=== PATIENT | female | born 1970 | race Caucasian/White ===

== ENCOUNTER 2017-04-09 15:21 | Inpatient (IN) | payer OTHER ==
[~2017-04-09] VITALS: Ht 177.8 cm; Wt 99.4 kg
[~2017-04-09 15:21] MED LIST: ACYC400T21 PO; ALPR1T PO; ALPR1TAB2 PO; AMIT50TA3 PO; AMT50T PO; CIPR-225 PO; CTLP20T PO; DIVA250T2 PO; Divalproex Sodium PO; HDR4T PO; HYDR-2890 PO; METO25TA6 PO; NYST1000 PO; OXYC-309 PO; PROP10TA8 PO; SMTR6KT.5 SQ; SUMA25TA4 PO; TOPI50TA2 PO; TPR100T PO; ZOLP10TA5 PO
--- OUTSIDE RECORDS SUMMARY | 2017-04-09 15:27 | XMS REPORT | Continuity of Care Document ---
Author Author [facility] Organization [facility] Address Unknown Phone Unavailable Care Team Providers Care [employer] Pilot Name Role Phone PCP Unavailable Source Comments Some departments are not documenting in the electronic medical record. If you do not see the information that you expected, contact Release of Information in the Health Information Management department at [phone] for further assistance in locating additional records.[facility] Active Allergies and Adverse Reactions Not on File Current Medications Not on file Active Problems Not on file Social History Tobacco Use Types Packs/Day Years Used Date Never Assessed Plan of Care Health Maintenance Due Date Last Done Comments Physical (Comprehensive) 1978 Exam Pertussis Vaccine 1982 Tetanus Vaccine 02/04/1988 Cervical Cancer Screening 02/04/1992 Breast Cancer Screening 2011 Influenza Vaccine 05/29/2017 Results from Last 3 Months Not on file
--- OUTSIDE RECORDS SUMMARY | 2017-04-09 15:28 | XMS REPORT | Continuity of Care Document ---
Author Author [facility] Organization [facility] Address Unknown Phone Unavailable Allergies Active Description Code Type Severity Reaction Onset Reported/Identified Relationship to Patient Clinical Status Yes NKANo Known Allergies NKA Miscellaneous Allergy Unknown N/ A 02/17/2006 Medications Problems Date Dx Coded Attending Type Code Diagnosis Diagnosed By 05/10/2014 VEENA MARES DO Ot 272.4 HYPERLIPIDEMIA NEC/NOS 05/10/2014 VEENA MARES DO Ot 300.00 ANXIETY STATE NOS 05/10/2014 VEENA MARES DO Ot 305.1 TOBACCO USE DISORDER 05/10/2014 VEENA MARES DO Ot 311 DEPRESSIVE DISORDER NEC 05/10/2014 VEENA MARES DO Ot 346.91 MGRN UNSPECIFIED W INTRACTABLE MGRN W /O 05/10/2014 VEENA MARES DO Ot 401.9 HYPERTENSION NOS 05/10/2014 VEENA MARES DO Ot 786.59 CHEST PAIN NEC 05/10/2014 VEENA MARES DO Ot V17.49 FAMILY HISTORY OF OTHER CARDIOVASCULAR D 01/31/2015 YVROSE ESCOBEDO, ALFREDO R Ot 112.0 THRUSH 01/31/2015 YVROSE ESCOBEDO, ALFREDO R Ot 311 DEPRESSIVE DISORDER NEC 01/31/2015 YVROSE ESCOBEDO, ALFREDO R Ot 346.91 MGRN UNSPECIFIED W INTRACTABLE MGRN W/O 01/31/2015 YVROSE ESCOBEDO, ALFREDO R Ot 372.30 CONJUNCTIVITIS NOS 03/26/2015 YVROSE ESCOBEDO, ALFREDO R Ot 784.2 04/09/2015 YVROSE ESCOBEDO, ALFRDEO R Ot 719.46 04/12/2015 YVROSE ESCOBEDO, ALFREDO R Ot 719.46 04/13/2015 YVROSE ESCOBEDO, ALFREDO R Ot 784.2 04/13/2015 YVROSE ESCOBEDO, ALFREDO R Ot 719.46 04/18/2015 MADONNA ESCOBEDO, BLANQUITA Lai Ot 300.00 ANXIETY STATE NOS 04/18/2015 BLANQUITA PEACOCK MD Ot 311 DEPRESSIVE DISORDER NEC 04/18/2015 BLANQUITA PEACOCK MD Ot 401.9 HYPERTENSION NOS 04/18/2015 BLANQUITA PEACOCK MD Ot 530.81 ESOPHAGEAL REFLUX 04/18/2015 BLANQUITA PEACOCK MD Ot 717.2 DERANG POST MED MENISCUS 04/18/2015 BLANQUITA PEACOCK MD Ot 733.92 CHONDROMALACIA 04/18/2015 BLANQUITA PEACOCK MD Ot V57.1 PHYSICAL THERAPY NEC 04/18/2015 BLANQUITA PEACOCK MD Ot V58.69 OTH MED,LT,CURRENT USE 03/01/2016 YVROSE ESCOBEDO, ALFREDO R Ot 784.2 SWELLING IN HEAD NECK 03/01/2016 ALFREDO FRANCES MD Ot 719.46 JOINT PAIN-L/LEG 03/01/2016 BLANQUITA PEACOCK MD Ot 717.3 DERANG MED MENISCUS NEC 03/01/2016 BLANQUITA PEACOCK MD Ot V72.83 EXAM PRE-OPERATIVE NEC 03/01/2016 BLANQUITA PEACOCK MD Ot V74.8 SCREEN-BACTERIAL DIS NEC 03/03/2016 DAREK ESCOBEDO, CELIA Herrera Ot F12.10 CANNABIS ABUSE, UNCOMPLICATED 03/03/2016 DAREK ESCOBEDO, CELIA Herrera Ot F13.239 SEDATV/HYP/ANXIOLYTC DEPENDENCE W WITHDR 03/03/2016 CELIA OSWALD MD Ot F17.210 NICOTINE DEPENDENCE, CIGARETTES, UNCOMPL 03/03/2016 CEILA OSWALD MD Ot N39.0 URINARY TRACT INFECTION, SITE NOT SPECIF Procedures Results Encounters ACCT No. Visit Date/Time Discharge Status Pt. Type Provider Facility Loc./Unit Complaint [id number] 03/01/2016 21:32:00 2015 23:05:00 DIS Outpatient CELIA OSWALD MD [facility] ER [id number] 04/18/2015 06:00:00 2014 10:35:00 DIS Outpatient BLANQUITA PEACOCK MD [facility] SDC [id number] 04/17/2015 10:43:00 2014 23:59:59 CLS Outpatient BLANQUITA PEACOCK MD [facility] PREOP [id number] 04/06/2015 11:13:00 2014 23:59:59 CLS Outpatient ALFREDO FRANCES MD [facility] [id number] 03/14/2015 12:35:00 2014 23:59:59 CLS Outpatient ALFREDO FRANCES MD [facility] [id number] 01/24/2015 11:40:00 2014 13:22:00 DIS Inpatient ALFREDO FRANCES MD [facility] [address] [id number] 05/05/2014 19:45:00 2013 13:49:00 DIS Inpatient VEENA MARES DO [facility] [address]
--- NOTE | 2017-04-09 15:41 | ED Chest Pain ---
General Chief Complaint: Chest Pain Stated Complaint: CHEST PAIN,SOB Source: patient Exam Limitations: no limitations History of Present Illness Time seen by provider: 15:40 Initial Comments To ER with chest heaviness, shortness of breath and palpitations constant since 11 a.m. this morning. This occurred while she was at rest at her mother's house. She has a history of this and has seen cardiology with an echocardiogram in the past. She's never had a heart catheter. She does feel little anxious but states that she always feels anxious and she's had a lot going on lately. She states that her mother checked her heart rate at home and found it to be 180. She then sat down and then reduced to 120. Upon arrival to ER it is 100, sinus with a blood pressure of 140/100. She is on metoprolol 25 mg daily. She's had these symptoms intermittently over the past few weeks. Timing/Duration: intermittent Severity/Quality: moderate Activities at Onset: none ASA po BRICK LOADER: No NTG SL BRICK LOADER: No Allergies and Home Medications Allergies Coded Allergies: Alan Known Allergies (Verified Allergy, Unknown, 02/17/06) Home Medications Alprazolam 1 Mg Tablet, 0.5-1 MG PO BID PRN for ANXIETY, (Reported) TAKES 1/2 - 1 (1MG) TABLET Amitriptyline HCl 50 Mg Tablet, 50 MG PO DAILY, (Reported) Hydrocodone/Acetaminophen 1 Each Tablet, 1 EACH PO, (Reported) Melatonin 10 Mg Capsule, 10 MG PO PRN, (Reported) Metoprolol Tartrate 25 Mg Tablet, 25 MG PO DAILY, (Reported) Pantoprazole Sodium 40 Mg Tablet.dr, 40 MG PO DAILY, (Reported) Ropinirole HCl 2 Mg Tablet, 2 MG PO, (Reported) Sumatriptan Succinate 25 Mg Tablet, 25 MG PO PRN PRN for ONSET OF HEADACHE, ( Reported) MAY REPEAT 1 TIME 2 HOURS LATER Review of Systems Constitutional: see HPI EENTM: No Symptoms Reported Respiratory: No Symptoms Reported Cardiovascular: No Symptoms Reported Gastrointestinal: See HPI Genitourinary: No Symptoms Reported Musculoskeletal: no symptoms reported Skin: no symptoms reported Endocrine: No Symptoms Reported Hematologic/Lymphatic: No Symptoms Reported Past Ridqayu-Bxzhyy-Frsgyh Hx Patient Social History Recent Foreign Travel: No Contact w/Someone Who Travel: No Surgeries HX Surgeries: Yes (ceserean section x 2, LEFT KNEE SCOPE) Respiratory Hx Respiratory Disorders: No Cardiovascular Hx Cardiac Disorders: Yes Cardiac Disorders: Hypertension Neurological Hx Neurological Disorders: Yes Reproductive System Hx Reproductive Disorders: No Sexually Transmitted Disease: No HIV/AIDS: No 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 Disorders: Denies 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 Genitourinary Hx Genitourinary Disorders: No Gastrointestinal Hx Gastrointestinal Disorders: Yes (SURGERY FOR GERD) Gastrointestinal Disorders: Gastroesophageal Reflux Musculoskeletal Hx Musculoskeletal Disorders: Yes Endocrine Hx Endocrine Disorders: No HEENT HX ENT Disorders: No Loss of Vision: Denies Hearing Impairment: Denies Cancer Hx Cancer: No Psychosocial Hx Psychiatric Problems: Yes Behavioral Health Disorders: Anxiety, Depression Integumentary HX Skin/Integumentary Disorder: No Blood Transfusions Hx Blood Disorders: No Family Medical History Family Medial History: Atrial fibrillation 19 MOTHER, Onset:Unknown Cancer of mouth 19 FATHER, Onset:Unknown Headache disorder 19 MOTHER, Onset:Unknown No Family History of: AIDS Abdominal aortic aneurysm Cypress's disease Alcoholism Alzheimer's disease Aphasia Arthritis Asthma Cardiovascular disease Cataracts Colon cancer Completed stroke Congenital disease Congenital heart disease Coronary thrombosis Cystic fibrosis Deafness or hearing loss Dementia Diabetes mellitus Drug abuse Dysphasia Fibrocystic disease of breast Gastroenteritis Glaucoma Hypercholesterolemia Hypertension Infertility Kidney disease Myocardial infarction Neoplasm Not obtainable due to adoption Osteoporosis Parkinson's disease Prostate cancer Psychosocial problem Respiratory disorder Seizure disorder Severe allergy Thyroid disease Tuberculosis Visual disorder Physical Exam Vital Signs Vital Sign - Last 12Hours 04/09/17 15:27 Temp 97.6 Pulse 101 Resp 20 B/P (MAP) 141/105 Pulse Ox 98 O2 Delivery Room Air Capillary Refill : General Appearance: No Apparent Distress, WD/WN HEENT: PERRL/EOMI, TMs Normal Neck: Full Range of Motion, Normal Inspection Respiratory: Normal Breath Sounds, No Accessory Muscle Use, No Respiratory Distress Cardiovascular: Regular Rate, Rhythm, Normal Peripheral Pulses Gastrointestinal: Non Tender, Soft Extremity: Normal Capillary Refill, Normal Inspection Neurologic/Psychiatric: Alert, Oriented x3 Skin: Normal Color, Warm/Dry Progress/Results/Core Measures Results/Orders Lab Results Laboratory Tests Test 04/09/17 15:50 Range/Units White Blood Count 8.4 4.3-11.0 10^3/uL Red Blood Count 4.79 4.35-5.85 10^6/uL Hemoglobin 14.8 11.5-16.0 G/DL Hematocrit 44 35-52 % Mean Corpuscular Volume 92 80-99 FL Mean Corpuscular Hemoglobin 31 25-34 PG Mean Corpuscular Hemoglobin Concent 34 32-36 G/DL Red Cell Distribution Width 12.7 10.0-14.5 % Platelet Count 271 130-400 10^3/uL Mean Platelet Volume 9.8 7.4-10.4 FL Neutrophils (%) (Auto) 67 42-75 % Lymphocytes (%) (Auto) 25 12-44 % Monocytes (%) (Auto) 7 0-12 % Eosinophils (%) (Auto) 1 0-10 % Basophils (%) (Auto) 0 0-10 % Neutrophils # (Auto) 5.6 1.8-7.8 X 10^3 Lymphocytes # (Auto) 2.1 1.0-4.0 X 10^3 Monocytes # (Auto) 0.6 0.0-1.0 X 10^3 Eosinophils # (Auto) 0.1 0.0-0.3 10^3/uL Basophils # (Auto) 0.0 0.0-0.1 10^3/uL Prothrombin Time 12.6 12.2-14.7 SEC INR Comment 1.0 0.8-1.4 Activated Partial Thromboplast Time 26 24-35 SEC D-Dimer 0.84 H 0.00-0.49 UG/ML Sodium Level 139 135-145 MMOL/L Potassium Level 3.4 L 3.6-5.0 MMOL/L Chloride Level 106 98-107 MMOL/L Carbon Dioxide Level 21 21-32 MMOL/L Anion Gap 12 5-14 MMOL/L Blood Urea Nitrogen 10 7-18 MG/DL Creatinine 0.89 0.60-1.30 MG/DL Estimat Glomerular Filtration Rate > 60 BUN/Creatinine Ratio 11 Glucose Level 114 H 70-105 MG/DL Calcium Level 9.3 8.5-10.1 MG/DL Magnesium Level 1.9 1.8-2.4 MG/DL Total Bilirubin 0.5 0.1-1.0 MG/DL Aspartate Amino Transf (AST/SGOT) 13 5-34 U/L Alanine Aminotransferase (ALT/SGPT) 13 0-55 U/L Alkaline Phosphatase 63 40-136 U/L Myoglobin 27.6 10.0-92.0 NG/ML Troponin I < 0.30 <0.30 NG/ML B-Type Natriuretic Peptide < 10.0 <100.0 PG/ML Total Protein 7.8 6.4-8.2 GM/DL Albumin 4.1 3.2-4.5 GM/DL Amylase Level 126 H 25-125 U/L Lipase 42 8-78 U/L My Orders Orders - MAXIMILIANO JEFF APRN Cbc With Automated Diff (04/09/17 15:32) Magnesium (04/09/17 15:32) Chest 1 View, Ap/Pa Only (04/09/17:32) Ekg Tracing (04/09/17:32) Cardiac Profile 1 (04/09/17 15:32) Comprehensive Metabolic Panel (04/09/17 15:32) Myoglobin Serum (04/09/17:32) Protime With Inr (04/09/17:) Partial Thromboplastin Time (04/09/17:32) O2 (04/09/17:32) Monitor-Rhythm Ecg Trace Only (04/09/17 15:32) Lipid Panel (04/10/17 06:00) Aspirin Chewable Tablet (Baby Aspirin Ch (04/09/17 15:45) Saline Lock/Iv-Start (04/09/17 15:32) Lipase (04/09/17 15:32) Amylase (04/09/17 15:32) BNP (04/09/17:32) Fibrin Degradation Products (04/09/17 15:32) Lorazepam Injection (Ativan Injection) (04/09/17 15:45) Metoprolol Tartrate (Ir) Tab (Lopressor (04/09/17 15:45) Ct Angio Chest W (04/09/17 16:28) Iohexol Injection (Omnipaque 350 Mg/Ml 1 (04/09/17 17:00) Ns (Ivpb) (Sodium Chloride 0.9% Ivpb Bag (04/09/17 17:00) Heparin (Bolus Per Protocol) (Heparin (B (04/09/17 17:30) Factor 5 Leiden (04/09/17 17:23) Factor Ii 49590 Mutation (04/09/17 17:23) Us Venous Lower Ext Eduin (04/09/17 17:33) Medications Given in ED Current Medications Medications Dose Ordered Sig/Tiana Route Start Time Stop Time Status Last Admin Dose Admin Aspirin 324 mg ONCE ONCE PO 04/09/17 15:45 04/09/17 15:46 DC 04/09/17 15:55 324 MG Heparin Sodium (Porcine) HEPARIN FULL PROTOC... ONCE ONCE IV 04/09/17 17:30 04/09/17 17:31 DC 04/09/17 17:47 5,000 UNIT Iohexol 125 ml ONCE ONCE IV 04/09/17 17:00 04/09/17 17:01 DC 04/09/17 16:52 125 ML Lorazepam 1 mg ONCE ONCE IVP 04/09/17 15:45 04/09/17 15:46 DC 04/09/17 15:55 1 MG Metoprolol Tartrate 25 mg ONCE ONCE PO 04/09/17 15:45 04/09/17 15:46 DC 04/09/17 15:55 25 MG Sodium Chloride 100 ml ONCE ONCE IV 04/09/17 17:00 04/09/17 17:01 DC 04/09/17 16:52 80 ML Vital Signs/I&O Vital Sign - Last 12Hours 04/09/17 04/09/17 15:27 15:40 Temp 97.6 Pulse 101 Resp 20 B/P (MAP) 141/105 Pulse Ox 98 O2 Delivery Room Air Room Air Diagnostic Imaging Diagonstic Imaging: Xray Plain Films/CT/US/NM/MRI: chest Comments NAME: T[facility] CORRALES [facility] REC#: [id number] PT STATUS: REG ER : 1970 PHYSICIAN: MAXIMILIANO JEFF APRN ADMIT DATE: 04/09/17/ER Draft Date of Exam:04/09/17 CHEST 1 VIEW, AP/PA ONLY INDICATION: Shortness of breath and chest pain. EXAMINATION: PA chest obtained at 03:44 p.m. FINDINGS: Heart and mediastinal silhouette are normal in appearance. The lungs are clear. There is no pneumothorax or pleural fluid. IMPRESSION: Negative chest. Dictated on workstation # [id number] Dict: 04/09/17 1551 Trans: 04/09/17 1556 [facility] [id number] Interpreted by: BERENICE MCCORMICK MD Electronically signed by: NAME: TIN CORRALES [facility] REC#: [id number] PT STATUS: ADM IN : 1970 PHYSICIAN: MAXIMILIANO JEFF APRN ADMIT DATE: 04/09/17/4TH Signed Date of Exam:04/09/17 US VENOUS LOWER EXT EDUIN INDICATION: Pulmonary embolism. TECHNIQUE: Multiple real-time grayscale images were obtained over both lower extremities in various projections. Duplex Doppler and color Doppler images were also obtained. FINDINGS: The common femoral, femoral and popliteal veins demonstrate normal response to compression, augmentation and Valsalva. There are no abnormal lower extremity fluid collections or masses. IMPRESSION: No evidence of deep venous thrombosis in either lower extremity. Dictated by: Dictated on workstation # [id number] Dict: 04/09/17 1759 Trans: 04/09/171808 [id number] Interpreted by: YURIDIA YANES Electronically signed by: YURIDIA YANES 04/09/171808 NAME: TIN CORRALES [facility] REC#: [id number] PT STATUS: REG ER : 1970 PHYSICIAN: MAXIMILIANO JEFF APRN ADMIT DATE: 04/09/17/ER Signed Date of Exam:04/09/17 CT ANGIO CHEST W PROCEDURE: CT angiography of the chest with contrast. TECHNIQUE: Multiple contiguous axial images were obtained through the chest after uneventful bolus administration of intravenous contrast. Reconstructed CTA MIP acquisitions were also performed. INDICATION: Chest pain, shortness of breath, and left arm pain. No prior examinations are available for comparison. FINDINGS: There is a focal filling defect in the right lower lobe pulmonary artery compatible with pulmonary embolism. This is nonobstructing. There is also a small filling defect in the right upper lobe pulmonary artery. The thoracic aorta is normal in caliber without evidence of dissection. There is no pathologically enlarged adenopathy in the chest. There is no pneumothorax. Heart size is normal. The osseous structures are unremarkable. The visualized intra-abdominal structures are unremarkable. IMPRESSION: Multifocal pulmonary embolism in the right upper lobe and right lower lobe as described. No other acute abnormality in the chest. Dictated by: Dictated on workstation # [id number] Dict: 04/09/17 1701 Trans: 04/09/17 171 [id number] Interpreted by: FARZANA,YURIDIA C Electronically signed by: JULIO CÉSAR YANESRY Alaina 04/09/17 3073 Departure Communication Time/Spoke to Admitting Phy: 17:[address] Vasquez, consultation hematology, cardiology, pulmonology. She is 98 percent on room air with a respiratory rate of less than 20 heart rate 90- 100 sinus. She is stable to go to the floor on telemetry. She is a smoker, she is not on exogenous estrogen, no history of clotting disorder, no recent immobilization from travel or surgery. She does report bilateral lower extremity swelling. Impression Impression: Primary Impression: Pulmonary emboli Disposition: ADMITTED INPATIENT Condition: Stable Decision to Admit Reason: Admit from ER (General) Decision to Admit/Date: Apr 09, 2017 Time/Decision to Admit Time: 17:33 Departure-Patient Inst. Referrals: ALFREDO FRANCES MD (PCP/Family) Primary Care Physician MAXIMILIANO JEFF APRN Apr 09, 2017 15:41
[2017-04-09] MEDS ORDERED: meTOprolol TARTRATE 25 MG (LOPRESSOR) TABLET PO ONE (15:45)
[2017-04-09] MEDS ORDERED: ASPIRIN 81 MG CHEW (CHILDREN'S ASA) PO ONE (15:45)
[2017-04-09] MEDS ORDERED: LORazepam INJ 2 MG/ML (ATIVAN) VIAL IVP ONE (15:45)
--- NOTE | 2017-04-09 15:56 | Diagnostic Imaging Report ---
INDICATION: Shortness of breath and chest pain. EXAMINATION: PA chest obtained at 03:44 p.m. FINDINGS: Heart and mediastinal silhouette are normal in appearance. The lungs are clear. There is no pneumothorax or pleural fluid. IMPRESSION: Negative chest. Dictated by: Dictated on workstation # [id number]
[2017-04-09 15:57] LABS: BASOPHILS % (AUTO) 0 % (0-10); EOSINOPHILS # (AUTO) 0.1 10^3/uL (0.0-0.3); EOSINOPHILS % (AUTO) 1 % (0-10); LYMPHOCYTES # (AUTO) 2.1 X 10^3 (1.0-4.0); LYMPHOCYTES % (AUTO) 25 % (12-44); MEAN CORPUSCULAR HEMOGLOBIN 31 PG (25-34); MEAN CORPUSCULAR HGB CONC 34 G/DL (32-36); MEAN CORPUSCULAR VOLUME 92 FL (80-99); MEAN PLATELET VOLUME 9.8 FL (7.4-10.4); MONOCYTES # (AUTO) 0.6 X 10^3 (0.0-1.0); MONOCYTES % (AUTO) 7 % (0-12); NEUTROPHILS # (AUTO) 5.6 X 10^3 (1.8-7.8); NEUTROPHILS % (AUTO) 67 % (42-75); PLATELET COUNT 271 10^3/uL (130-400); RED BLOOD COUNT 4.79 10^6/uL (4.35-5.85); RED CELL DISTRIBUTION WIDTH 12.7 % (10.0-14.5); WHITE BLOOD COUNT 8.4 10^3/uL (4.3-11.0)
[2017-04-09 16:05] LABS: PROTHROMBIN TIME PATIENT 12.6 SEC (12.2-14.7)
[2017-04-09] MEDS ORDERED: PANT40TA2 PO (16:05)
[2017-04-09] MEDS ORDERED: MELA10CA2 PO (16:05)
[2017-04-09] MEDS ORDERED: ROPI2TAB4 PO ×2 (16:05→22:55)
[2017-04-09] MEDS ORDERED: AMIT50TA3 PO (16:05)
[2017-04-09] MEDS ORDERED: HYDR-3820 PO (16:05)
[2017-04-09 16:17] LABS: ALANINE AMINOTRANSFERASE 13 U/L (0-55); ALBUMIN 4.1 GM/DL (3.2-4.5); AMYLASE 126 U/L (25-125); ANION GAP 12 MMOL/L (5-14); ASPARTATE AMINO TRANSFERASE 13 U/L (5-34); BILIRUBIN,TOTAL 0.5 MG/DL (0.1-1.0); BLOOD UREA NITROGEN 10 MG/DL (7-18); BUN/CREATININE RATIO 11; CALCIUM 9.3 MG/DL (8.5-10.1); CARBON DIOXIDE 21 MMOL/L (21-32); CHLORIDE 106 MMOL/L (98-107); CREATININE SERUM 0.89 MG/DL (0.60-1.30); GFR ESTIMATED > 60; GLUCOSE 114 MG/DL (70-105); LIPASE 42 U/L (8-78); MAGNESIUM 1.9 MG/DL (1.8-2.4); POTASSIUM 3.4 MMOL/L (3.6-5.0); SODIUM 139 MMOL/L (135-145); TOTAL PROTEIN 7.8 GM/DL (6.4-8.2)
[2017-04-09 16:23] LABS: MYOGLOBIN SERUM 27.6 NG/ML (10.0-92.0)
[2017-04-09] MEDS ORDERED: IOHEXOL 350 MG/ML 150 ML (OMNIPAQUE 350) VIAL IV ONE (17:00)
[2017-04-09] MEDS ORDERED: NS 100 ML (IVPB) BAG IV ONE (17:00)
--- NOTE | 2017-04-09 17:13 | Diagnostic Imaging Report ---
PROCEDURE: CT angiography of the chest with contrast. TECHNIQUE: Multiple contiguous axial images were obtained through the chest after uneventful bolus administration of intravenous contrast. Reconstructed CTA MIP acquisitions were also performed. INDICATION: Chest pain, shortness of breath, and left arm pain. No prior examinations are available for comparison. FINDINGS: There is a focal filling defect in the right lower lobe pulmonary artery compatible with pulmonary embolism. This is nonobstructing. There is also a small filling defect in the right upper lobe pulmonary artery. The thoracic aorta is normal in caliber without evidence of dissection. There is no pathologically enlarged adenopathy in the chest. There is no pneumothorax. Heart size is normal. The osseous structures are unremarkable. The visualized intra-abdominal structures are unremarkable. IMPRESSION: Multifocal pulmonary embolism in the right upper lobe and right lower lobe as described. No other acute abnormality in the chest. Dictated by: Dictated on workstation # [id number]
[2017-04-09] MEDS ORDERED: HEParin 1000 UNIT/ML (10ML VIAL) FOR BOLUS IV ONE (17:30)
--- OUTSIDE RECORDS SUMMARY | 2017-04-09 17:43 | XMS REPORT | Continuity of Care Document ---
Author Author [facility] Organization [facility] Address Unknown Phone Unavailable Care Team Providers Care Extras Casting Director Name Role Phone PCP Unavailable Source Comments Some departments are not documenting in the electronic medical record. If you do not see the information that you expected, contact Release of Information in the Health Information Management department at [phone] for further assistance in locating additional records.[facility] Active Allergies and Adverse Reactions Not on [...]
--- OUTSIDE RECORDS SUMMARY | 2017-04-09 17:43 | XMS REPORT | Continuity of Care Document ---
Author Author [facility] Organization [facility] Address Unknown Phone Unavailable Allergies Active [...] ALFREDO R Ot 784.2 04/09/2015 YVROSE ESCOBEDO, ALFREDO R Ot 719.46 04/12/2015 YVROSE ESCOBEDO, ALFREDO [...] MD Ot V58.69 OTH MED,LT,CURRENT USE 03/01/2016 ALFREDO FRANCES MD Ot 784.2 SWELLING IN HEAD NECK 03/01/2016 [...] Ot F17.210 NICOTINE DEPENDENCE, CIGARETTES, UNCOMPL 03/03/2016 CELIA OSWALD MD Ot N39.0 URINARY TRACT INFECTION, SITE NOT SPECIF Procedures Results Test Result Range Complete blood count (CBC) with automated white blood cell (WBC) differential - 04/09/17 15:50 Blood leukocytes automated count (number/volume) 8.4 10*3/ uL 4.3-11.0 Blood erythrocytes automated count (number/volume) 4.79 10*6 /uL 4.35-5.85 Venous blood hemoglobin measurement (mass/volume) 14.8 g/dL 11.5-16.0 Blood hematocrit (volume fraction) 44 % 35-52 Automated erythrocyte mean corpuscular volume 92 [foz_us] 80-99 Automated erythrocyte mean corpuscular hemoglobin (mass per erythrocyte) 31 pg 25-34 Automated erythrocyte mean corpuscular hemoglobin concentration measurement ( mass/volume) 34 g/dL 32-36 Automated erythrocyte distribution width ratio 12.7 % 10.0-14.5 Automated blood platelet count (count/volume) 271 10*3/uL 130-400 Automated blood platelet mean volume measurement 9.8 [foz_us ] 7.4-10.4 Automated blood neutrophils/100 leukocytes 67 % 42-75 Automated blood lymphocytes/100 leukocytes 25 % 12-44 Blood monocytes/100 leukocytes 7 % 0-12 Automated blood eosinophils/100 leukocytes 1 % 0-10 Automated blood basophils/100 leukocytes 0 % 0-10 Blood neutrophils automated count (number/volume) 5.6 10*3 1.8-7.8 Blood lymphocytes automated count (number/volume) 2.1 10*3 1.0-4.0 Blood monocytes automated count (number/volume) 0.6 10*3 0.0-1.0 Automated eosinophil count 0.1 10*3/uL 0.0-0.3 Automated blood basophil count (count/volume) 0.0 10*3/uL 0.0-0.1 PT panel in platelet poor plasma by coagulation assay - 04/09/17 15:50 Prothrombin time (PT) in platelet poor plasma by coagulation assay 12.6 s 12.2-14.7 INR in platelet poor plasma or blood by coagulation assay 1.0 0.8-1.4 Activated partial thromboplastin time (aPTT) in platelet poor plasma bycoagulation assay - 04/09/17 15:50 Activated partial thromboplastin time (aPTT) in platelet poor plasma bycoagulation assay 26 s 24-35 Comprehensive metabolic panel - 04/09/17 15:50 Serum or plasma sodium measurement (moles/volume) 139 mmol/ L 135-145 Serum or plasma potassium measurement (moles/volume) 3.4 mmol/L 3.6-5.0 Serum or plasma chloride measurement (moles/volume) 106 mmol /L 98-107 Carbon dioxide 21 mmol/L 21-32 Serum or plasma anion gap determination (moles/volume) 12 mmol/L 5-14 Serum or plasma urea nitrogen measurement (mass/volume) 10 mg/dL 7-18 Serum or plasma creatinine measurement (mass/volume) 0.89 mg /dL 0.60-1.30 Serum or plasma urea nitrogen/creatinine mass ratio 11 NRG Serum or plasma creatinine measurement with calculation of estimated glomerular filtration rate > NRG Serum or plasma glucose measurement (mass/volume) 114 mg/dL 70-105 Serum or plasma calcium measurement (mass/volume) 9.3 mg/dL 8.5-10.1 Serum or plasma total bilirubin measurement (mass/volume) 0.5 mg/dL 0.1-1.0 Serum or plasma alkaline phosphatase measurement (enzymatic activity/volume) 63 U/L 40-136 Serum or plasma aspartate aminotransferase measurement (enzymatic activity/ volume) 13 U/L 5-34 Serum or plasma alanine aminotransferase measurement (enzymatic activity/volume ) 13 U/L 0-55 Serum or plasma protein measurement (mass/volume) 7.8 g/dL 6.4-8.2 Serum or plasma albumin measurement (mass/volume) 4.1 g/dL 3.2-4.5 Magnesium - 04/09/17 15:50 Magnesium 1.9 mg/dL 1.8-2.4 Serum or plasma troponin i.cardiac measurement (mass/volume) - 04/09/17 15:50 Serum or plasma troponin i.cardiac measurement (mass/volume) < ng/mL <0.30 Myoglobin, serum - 04/09/17 15:50 Myoglobin, serum 27.6 ng/mL 10.0-92.0 Serum or plasma amylase measurement (enzymatic activity/volume) - 04/09/17 15: 50 Serum or plasma amylase measurement (enzymatic activity/volume) 126 U/L 25-125 Lipase - 04/09/17 15:50 Lipase 42 U/L 8-78 Serum or plasma lithium measurement (moles/volume) - 04/09/17 15:50 BNP level < pg/mL <100.0 Fibrin D-dimer FEU measurement in platelet poor plasma (mass/volume) - 15:50 Fibrin D-dimer FEU measurement in platelet poor plasma (mass/volume) 0.84 ug/mL 0.00-0.49 Encounters ACCT No. Visit Date/Time Discharge Status Pt. Type Provider Facility Loc./Unit Complaint [id number] 03/01/2016 21:32:00 2015 23:05:00 DIS Outpatient DAREK ESCOBEDO, CELIA Herrera [facility] [id number] 04/18/2015 06:00:00 2014 10:35:00 DIS Outpatient MADONNA ESCOBEDO, BLANQUITA Lai [facility] [id number] 04/17/2015 10:43:00 2014 23:59:59 CLS Outpatient MADONNA ESCOBEDO, BLANQUITA Lai [facility] PREOP [id number] 04/06/2015 11:13:00 2014 23:59:59 CLS Outpatient ALFREDO FRANCES MD [facility] [id number] 03/14/2015 12:35:00 2014 23:59:59 CLS Outpatient ALFREDO FRANCES MD [facility] [id number] 01/24/2015 11:40:00 2014 13:22:00 DIS Inpatient ALFREDO FRANCES MD [facility] [address] [id number] 05/05/2014 19:45:00 2013 13:49:00 DIS Inpatient VEENA MARES DO Via [address] [id number] 04/09/2017 15:58:00 Document Registration
--- NOTE | 2017-04-09 18:02 | Diagnostic Imaging Report ---
INDICATION: Pulmonary embolism. TECHNIQUE: Multiple real-time grayscale images were obtained over both lower extremities in various projections. Duplex Doppler and color Doppler images were also obtained. FINDINGS: The common femoral, femoral and popliteal veins demonstrate normal response to compression, augmentation and Valsalva. There are no abnormal lower extremity fluid collections or masses. IMPRESSION: No evidence of deep venous thrombosis in either lower extremity. Dictated by: Dictated on workstation # [id number]
[2017-04-09 18:15] VITALS: BP 137/85
[2017-04-09] MEDS ORDERED: CATHETER FLUSH 10 ML SYR IV PRN (18:30)
[2017-04-09] MEDS ORDERED: HEParin DRIP 25000 UNIT/500ML (FULL THERAPY) IV SCH (18:30)
[2017-04-09] MEDS: NS IV 1000 ML 1,000 ML IV SCH (18:34)
[2017-04-09] MEDS ORDERED: SUMAtriptan 50 MG (IMITREX) TAB PO PRN (19:00)
[2017-04-09] MEDS: HEParin 1000 UNIT/ML BOLUS (FULL THERAPY) IV PRN ×2 (19:47→22:40)
[2017-04-09] MEDS ORDERED: ONDANSETRON 4 MG/2 ML (SDV) Z0FRAN IVP PRN (20:15)
[2017-04-09] MEDS ORDERED: fentaNYL INJECTION 100 MCG/2 ML AMP IVP PRN (20:15)
[2017-04-09] MEDS ORDERED: ACETAMINOPHEN 500 MG TAB (TYLENOL) PO PRN (20:15)
[2017-04-09] MEDS ORDERED: ALPRAZolam 0.25 MG (XANAX) TAB PO PRN (20:15)
[2017-04-09] MEDS: ALPRAZolam 0.5 MG (XANAX) TAB PO SCH (20:32)
[2017-04-09] MEDS: HYDROcodone/APAP 5 MG/325 MG (LORTAB) TAB PO PRN (20:33)
[2017-04-09] MEDS ORDERED: HYDROcodone/APAP 10 MG/325 MG (LORTAB) TAB PO SCH (21:00)
[2017-04-09] MEDS ORDERED: MELATONIN 3 MG TABLET PO PRN (21:00)
[2017-04-09] MEDS ORDERED: rOPINIRole 1 MG (REQUIP) TABLET PO SCH (22:55)
[2017-04-09] MEDS ORDERED: AMITRIPTYLINE 50 MG (ELAVIL) TAB PO SCH ×2 (23:04)
[2017-04-10] VITALS: BP 100/59
[2017-04-10 04:00] VITALS: BP 118/71
[2017-04-10] MEDS: NS IV 1000 ML 1,000 ML IV SCH ×2 (04:30→14:44)
[2017-04-10] MEDS: HYDROcodone/APAP 5 MG/325 MG (LORTAB) TAB PO PRN ×4 (05:58→17:57)
[2017-04-10 06:32] LABS: CHOLESTEROL 208 MG/DL (< 200); DIRECT LDL 153 MG/DL (1-129); TRIGLYCERIDES 122 MG/DL (<150); VLDL CHOLESTEROL 24 MG/DL (5-40)
[2017-04-10] MEDS ORDERED: PANTOPRAZOLE 40 MG (PROTONIX) TAB PO SCH (07:00)
--- NOTE | 2017-04-10 07:45 | Pulmonary Consultation ---
History of Present Illness History of Present Illness Date of Consultation 04/10/17 07:41 Time Seen by Provider: 07:41 Date of Admission History of Present Illness 47yo presented to ED secondary to worsening SOB and palpitations aurelia with exertion however even present at rest started yesterday at 11am. HR at home was 180. CT scan in ED shows PE. NO hx of blood clots no family hx. pt is not on hormone replacement therapy. No long travel. Pt is active with grandkids at home. No truama. No hx of bleeding. Allergies and Home Medications Allergies Coded Allergies: NKANo Known Allergies (Verified Allergy, Unknown, 02/17/06) Home Medications Alprazolam 1 Mg Tablet, 0.5-1 MG PO BID PRN for ANXIETY, (Reported) TAKES 1/2 - 1 (1MG) TABLET Amitriptyline HCl 50 Mg Tablet, 50 MG PO DAILY, (Reported) Hydrocodone/Acetaminophen 1 Each Tablet, 1 EACH PO, (Reported) Melatonin 10 Mg Capsule, 10 MG PO PRN, (Reported) Metoprolol Tartrate 25 Mg Tablet, 25 MG PO DAILY, (Reported) Pantoprazole Sodium 40 Mg Tablet.dr, 40 MG PO DAILY, (Reported) Ropinirole HCl 2 Mg Tablet, 2 MG PO HS for 14 Days, #1 Prescribed by: MALVIN BARRIOS on 04/09/172254 Sumatriptan Succinate 25 Mg Tablet, 25 MG PO PRN PRN for ONSET OF HEADACHE, ( Reported) MAY REPEAT 1 TIME 2 HOURS LATER Past Utaeeks-Skjrer-Vmfyyz Hx Patient Social History Alcohol Use: Rarely Uses Recreational Drug Use: No Smoking Status: Current Everyday Smoker Type Used: Cigarettes Recent Foreign Travel: No Contact w/Someone Who Travel: No Recent Infectious Disease Expo: No Recent Hopitalizations: No Physical Abuse Screen: No Sexual Abuse: No Seasonal Allergies Seasonal Allergies: No Surgeries HX Surgeries: Yes (ceserean section x 2, LEFT KNEE SCOPE) Surgeries: Hysterectomy, Orthopedic Respiratory Hx Respiratory Disorders: No Cardiovascular Hx Cardiac Disorders: Yes Cardiac Disorders: Hypertension Neurological Hx Neurological Disorders: Yes Neurological Disorders: Headaches /Migraines Reproductive System : No Hx Reproductive Disorders: No Sexually Transmitted Disease: No HIV/AIDS: No 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 Disorders: Denies 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 Genitourinary Hx Genitourinary Disorders: No Gastrointestinal Hx Gastrointestinal Disorders: Yes (SURGERY FOR GERD) Gastrointestinal Disorders: Gastroesophageal Reflux Musculoskeletal Hx Musculoskeletal Disorders: Yes Endocrine Hx Endocrine Disorders: No HEENT HX ENT Disorders: No Loss of Vision: Denies Hearing Impairment: Denies Cancer Hx Cancer: No Psychosocial Hx Psychiatric Problems: Yes Behavioral Health Disorders: Anxiety, Depression Integumentary HX Skin/Integumentary Disorder: No Blood Transfusions Hx Blood Disorders: No Family Medical History Family Medial History: Atrial fibrillation 19 MOTHER, Onset:Unknown Cancer of mouth 19 FATHER, Onset:Unknown Headache disorder 19 MOTHER, Onset:Unknown No Family History of: AIDS Abdominal aortic aneurysm Putnam's disease Alcoholism Alzheimer's disease Aphasia Arthritis Asthma Cardiovascular disease Cataracts Colon cancer Completed stroke Congenital disease Congenital heart disease Coronary thrombosis Cystic fibrosis Deafness or hearing loss Dementia Diabetes mellitus Drug abuse Dysphasia Fibrocystic disease of breast Gastroenteritis Glaucoma Hypercholesterolemia Hypertension Infertility Kidney disease Myocardial infarction Neoplasm Not obtainable due to adoption Osteoporosis Parkinson's disease Prostate cancer Psychosocial problem Respiratory disorder Seizure disorder Severe allergy Thyroid disease Tuberculosis Visual disorder Review of Systems Time Seen by Provider: 08:16 Constitutional: Malaise, Weakness, No: Chills, Fever, Other, Sweats Eyes: No: Conjunctivae inflammation, Eyelid inflammation, Other, Pain, Redness , Vision change ENT: No: Ear discharge, Ear pain, Mouth pain, Mouth swelling, Nose congestion, Nose discharge, Nose pain, Other, Throat pain, Throat swelling Respiratory: Cough, Dry, SOB with excertion, Shortness of breath, No: Wheezing Cardiovascular: Chest Pain, Lt Headedness, Palpitations, Paroxysmal Noc. Dyspnea Gastrointestinal: No: Abdominal Pain, Constipation, Diarrhea, Hematochezia, Melena, Nausea, Other, Vomiting Genitourinary: No Dysuria, No Frequency, No Incontinence, No Hematuria, No Retention, No Other Exam Exam Vital Signs Date Time Temp Pulse Resp B/P (MAP) Pulse Ox O2 Delivery O2 Flow Rate FiO2 04/10/17 04:00 97.2 67 18 118/71 98 Room Air 04/10/17 01:00 65 04/10/17 00:00 97.0 68 18 100/59 98 Room Air 04/09/17 21:00 Room Air 04/09/17 19:00 71 04/09/17 18:15 98.4 67 18 137/85 97 Room Air 04/09/17 18:00 97.0 69 20 97 Room Air 04/09/17 15:40 Room Air 04/09/17 15:27 97.6 101 20 141/105 98 Room Air I & O 04/10/17 07:00 Intake Total 1034 ml Output Total 750 ml Balance 284 ml General Appearance: No Apparent Distress, WD/WN HEENT: PERRL/EOMI, TMs Normal Neck: Full Range of Motion, Normal Inspection Respiratory: Normal Breath Sounds, No Accessory Muscle Use, No Respiratory Distress Cardiovascular: Regular Rate, Rhythm, Normal Peripheral Pulses Capillary Refill: NONE Gastrointestinal: normal bowel sounds, non tender, soft Extremity: Normal Capillary Refill, Normal Inspection Neurologic/Psychiatric: Alert, Oriented x3 Skin: Normal Color, Warm/Dry Results Lab Laboratory Tests 04/09/17 15:50 Assessment/Plan Assessment/Plan Acute right PE -unprovoked and no personal or family hx of blood clots -currently on heparin gtt will switch to eliquis 10mg BID x7days then 5mg BID for at least 6 mo -Pt has no insurance. Will consult for medication assistance -Pt will need at least 6 mo of treatment and possibly life long treatment -Check echocardiogram -LE Dopplers are negative 232 labs radiology reviewed Risk and benefits explained to patient regarding anticoagulation. She is agreeable to Eliquis Clinical Quality Measures AMI/AHF: ASA po Prior to arrival: No DVT/VTE Risk/Contraindication: Risk Factor Score Per Nursin RFS Level Per Nursing on Admit: 4+=Very High STEFANIE NATHAN DO Apr 10, 2017 07:45
[2017-04-10 08:01] VITALS: BP 123/81
[2017-04-10] MEDS: ALPRAZolam 0.5 MG (XANAX) TAB PO SCH ×3 (08:16→17:57)
[2017-04-10] MEDS ORDERED: ROPI2TAB3 PO (08:45)
[2017-04-10] MEDS ORDERED: ALPR0.5T PO (08:45)
[2017-04-10] MEDS ORDERED: meTOprolol TARTRATE 25 MG (LOPRESSOR) TABLET PO SCH (09:00)
[2017-04-10] MEDS: APIXABAN 5 MG (ELIQUIS) TABLET PO SCH ×2 (10:02→17:57)
[2017-04-10] MEDS ORDERED: SUMAtriptan 50 MG (IMITREX) TAB PO PRN (10:15)
--- NOTE | 2017-04-10 10:23 | History & Physical-Hospitalist ---
LANNY JIANG MEDICAL STUDENT 04/10/17 1023: HPI History of Present Illness: HPI/Chief Complaint CC: SOB and chest pain HPI: Patient is a 47 yo F who complains of severe shortness of breath and chest pain. Patient was admitted to ER yesterday and was diagnosed with pulmonary embolism. Patient claims that she has been having these symptoms for a few weeks and had recently gotten significantly worse last night. Patient describes the pain as a sporadic, sharp pain that is localized in the middle of her chest. Patient denies any alleviating or aggravating factors. Patient claims it happens both at rest and upon exertion with no predictability. Claimed her pulse was 180 before she was admitted. Patient also complains of left arm pain, numbness in hands, nausea, and tightness in her chest. Source: patient Exam Limitations: no limitations Date Seen 04/10/17 Time Seen by Provider: 09:15 Attending Physician Pedro Dominguez Floyd R MD Referring Physician Date of Admission Apr 09, 2017 at 17:39 Home Medications & Allergies Home Medications Reviewed patient Home Medication Reconciliation Form Allergies Allergies Coded Allergies NKANo Known Allergies (Verified Allergy, Unknown, 02/17/06) Past Jnfqilh-Vohukv-Jfhsqc Hx Patient Social History Alcohol Use: Rarely Uses Recreational Drug Use: No Smoking Status: Current Everyday Smoker Type Used: Cigarettes Physical Abuse Screen: No Sexual Abuse: No Recent Foreign Travel: No Contact w/other who traveled: No Recent Hopitalizations: No Recent Infectious Disease Expo: No Seasonal Allergies Seasonal Allergies: No Surgeries HX Surgeries: Yes (ceserean section x 2, LEFT KNEE SCOPE) Surgeries: Section, Hysterectomy, Orthopedic, Tonsillectomy Respiratory Hx Respiratory Disorders: No Cardiovascular Hx Cardiovascular Disorders: Yes Cardiac Disorders: Hypertension Neurological Hx Neurological Disorders: Yes Neurological Disorders: Headaches /Migraines Reproductive System : No Hx Reproductive Disorders: No Sexually Transmitted Disease: No HIV/AIDS: No 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 Disorders: Denies Genitourinary Hx Genitourinary Disorders: No Gastrointestinal Hx Gastrointestinal Disorders: Yes (SURGERY FOR GERD) Gastrointestinal Disorders: Gastroesophageal Reflux Musculoskeletal Hx Musculoskeletal Disorders: Yes Endocrine Hx Endocrine Disorders: No HEENT HX ENT Disorders: No Loss of Vision: Denies Hearing Impairment: Denies Cancer Hx Cancer: No Psychosocial Hx Psychiatric Problems: Yes Behavioral Health Disorders: Anxiety, Depression Integumentary HX Skin/Integumentary Disorder: No Blood Transfusions Hx Blood Disorders: No Family Medical History Family Hx: Atrial fibrillation 19 MOTHER, Onset:Unknown Cancer of mouth 19 FATHER, Onset:Unknown Headache disorder 19 MOTHER, Onset:Unknown No Family History of: AIDS Abdominal aortic aneurysm Stephens's disease Alcoholism Alzheimer's disease Aphasia Arthritis Asthma Cardiovascular disease Cataracts Colon cancer Completed stroke Congenital disease Congenital heart disease Coronary thrombosis Cystic fibrosis Deafness or hearing loss Dementia Diabetes mellitus Drug abuse Dysphasia Fibrocystic disease of breast Gastroenteritis Glaucoma Hypercholesterolemia Hypertension Infertility Kidney disease Myocardial infarction Neoplasm Not obtainable due to adoption Osteoporosis Parkinson's disease Prostate cancer Psychosocial problem Respiratory disorder Seizure disorder Severe allergy Thyroid disease Tuberculosis Visual disorder Review of Systems Constitutional: malaise, weakness Respiratory: cough, dyspnea on exertion, short of breath Gastrointestinal: nausea Psychiatric/Neurological: Anxiety, Headache, Numbness Physical Exam Physical Exam Vital Signs Vital Sign - Last 12Hours 04/09/17 15:27 Temp 97.6 Pulse 101 Resp 20 B/P (MAP) 141/105 Pulse Ox 98 O2 Delivery Room Air Capillary Refill : NONE Results Results/Procedures Lab Laboratory Tests 04/09/17 15:50 Clinical Quality Measures AMI/AHF: ASA po Prior to arrival: No DVT/VTE Risk/Contraindication: Risk Factor Score Per Nursin RFS Level Per Nursing on Admit: 4+=Very High WILLIAM NAVAS DO 04/10/17 1043: HPI History of Present Illness: HPI/Chief Complaint Patient doing much better today and is not requiring oxygen and I did confer with hematology consultation along with pulmonology consultation echocardiogram has been performed but results are pending and cardiology consultation has not been performed yet. The plan will be for discharge today on anticoagulation follow-up with Dr. Prater in 2 months follow-up with Dr. Herrera in 2 weeks Source: patient Exam Limitations: no limitations Time Seen by Provider: 10:30 Home Medications & Allergies Allergies Allergies Coded Allergies NKANo Known Allergies (Verified Allergy, Unknown, 02/17/06) Past Xnphisb-Vprqvx-Qhepnx Hx Patient Social History Employed/Student: unemployed Smoking Status: Current Everyday Smoker Surgeries HX Surgeries: Yes Surgeries: Section, Hysterectomy, Orthopedic, Tonsillectomy Respiratory Hx Respiratory Disorders: No Cardiovascular Hx Cardiovascular Disorders: No Neurological Hx Neurological Disorders: Yes Neurological Disorders: Headaches /Migraines Genitourinary Hx Genitourinary Disorders: No Gastrointestinal Hx Gastrointestinal Disorders: No Musculoskeletal Hx Musculoskeletal Disorders: Yes Musculoskeletal Disorders: Arthritis Endocrine Hx Endocrine Disorders: No Cancer Hx Cancer: No Psychosocial Hx Psychiatric Problems: Yes Behavioral Health Disorders: Depression Family Medical History Family Hx: Atrial fibrillation 19 MOTHER, Onset:Unknown Cancer of mouth 19 FATHER, Onset:Unknown Headache disorder 19 MOTHER, Onset:Unknown No Family History of: AIDS Abdominal aortic aneurysm Stephens's disease Alcoholism Alzheimer's disease Aphasia Arthritis Asthma Cardiovascular disease Cataracts Colon cancer Completed stroke Congenital disease Congenital heart disease Coronary thrombosis Cystic fibrosis Deafness or hearing loss Dementia Diabetes mellitus Drug abuse Dysphasia Fibrocystic disease of breast Gastroenteritis Glaucoma Hypercholesterolemia Hypertension Infertility Kidney disease Myocardial infarction Neoplasm Not obtainable due to adoption Osteoporosis Parkinson's disease Prostate cancer Psychosocial problem Respiratory disorder Seizure disorder Severe allergy Thyroid disease Tuberculosis Visual disorder Review of Systems Constitutional: see HPI EENTM: no symptoms reported Respiratory: cough, dyspnea on exertion, short of breath Cardiovascular: chest pain, palpitations Gastrointestinal: no symptoms reported Genitourinary: no symptoms reported Musculoskeletal: no symptoms reported Skin: no symptoms reported Psychiatric/Neurological: Anxiety All Other Systems Reviewed Negative Unless Noted: Yes Physical Exam Physical Exam Vital Signs Vital Sign - Last 12Hours 04/09/17 15:27 Temp 97.6 Pulse 101 Resp 20 B/P (MAP) 141/105 Pulse Ox 98 O2 Delivery Room Air General Appearance: No Apparent Distress, WD/WN, Chronically ill Eyes: Bilateral Eye Normal Inspection, Bilateral Eye PERRL HEENT: PERRL/EOMI, Normal ENT Inspection, Pharynx Normal Neck: Full Range of Motion, Normal Inspection, Non Tender, Supple, Carotid Bruit Respiratory: Chest Non Tender, Lungs Clear, Normal Breath Sounds, No Accessory Muscle Use, No Respiratory Distress Cardiovascular: Regular Rate, Rhythm, No Edema, No Gallop, No JVD, No Murmur, Normal Peripheral Pulses Gastrointestinal: Normal Bowel Sounds, No Organomegaly, No Pulsatile Mass, Non Tender, Soft Back: Normal Inspection, No CVA Tenderness, No Vertebral Tenderness Extremity: Normal Capillary Refill, Normal Inspection, Normal Range of Motion, Non Tender, No Calf Tenderness, No Pedal Edema Neurologic/Psychiatric: Alert, Oriented x3, No Motor/Sensory Deficits, Normal Mood/Affect Skin: Normal Color, Warm/Dry Lymphatic: No Adenopathy Results Results/Procedures Lab Laboratory Tests 04/09/17 15:50 Assessment/Plan Admission Diagnosis Assessment: Acute pulmonary embolus new onset Smoker Chronic back pain Depression Anxiety Assessment and Plan Plan: Eliquis at discharge Follow-up with Dr. Herrera in 2 weeks Follow-up with Dr. Prater in 2 months for hypercoagulable workup results LANNY JIANG MEDICAL STUDENT Apr 10, 2017 10:23 WILLIAM NAVAS DO Apr 10, 2017 10:43
[2017-04-10] MEDS ORDERED: APIX5TAB PO (10:51)
[2017-04-10] MEDS ORDERED: ALPRAZolam 0.5 MG (XANAX) TAB PO PRN (11:00)
[2017-04-10 12:00] VITALS: BP 121/73
[2017-04-10 15:53] VITALS: BP 118/77
--- NOTE | 2017-04-10 16:12 | Consultation-Cardiology ---
HPI-Cardiology Cardiology Consultation: Date of Consultation 04/10/17 Date of Admission Attending Physician Pedro Dominguez DO Admitting Physician Nahun Herrera MD Consulting Physician Lonny REYES MD HPI: Time Seen by Provider: 16:00 Chief Complaint: Chest pain This is a 47-year-old lady with hypertension and active smoking. She presents with recurrent chest pain for the last one month. She also complains of shortness of breath. Review of Systems-Cardiology Review of Systems Constitutional: No As described under HPI, No no symptoms reported, No chills, No fever, No lightheadedness, No malaise, No tiredness, No weight loss, No weight gain, No other Eyes: No As described under HPI, No no symptoms reported, No blindness, No blurred vision, No contact lenses, No drainage, No decreased acuity, No foreign body sensation, No glasses, No inflammation, No pain, No photophobia, No previous injury, No shadows, No tunnel vision, No other, No vision change Ears/Nose/Throat: No As described under HPI, No no symptoms reported, No chronic hearing loss, No epistaxis, No ear discharge, No ear pain, No loose teeth, No mouth pain, No mouth swelling, No nasal drainage, No nose pain, No recent hearing loss, No throat pain, No throat swelling, No ulcerations, No other Respiratory: shortness of breath Cardiovascular: chest pain Gastrointestinal: No no symptoms reported, No As described under HPI, No abdomen distended, No abdominal pain, No blood streaked bowels, No constipation , No diarrhea, No difficulty swallowing, No nausea, No poor appetite, No poor fluid intake, No rectal bleeding, No vomiting, No other, No nausea/vomiting/ diarrhea, No stool coloration changes Genitourinary: No no symptoms reported, No As described under HPI, No burning, No dysuria, No discharge, No frequency, No flank pain, No hematuria, No incontinence, No pain, No urgency, No other, No urine frequency changes, No urine coloration changes Musculoskeletal: No no symptoms reported, No As describe under HPI, No back pain, No gout, No joint pain, No joint swelling, No muscle pain, No muscle stiffness, No neck pain, No other Skin: No no symptoms reported, No As described under HPI, No change in color, No change in hair/nails, No dryness, No lesions, No lumps, No rash, No other, No skin related problems, No ulcerations, No rash on exposed areas, No ulcerations on exposed areas Psychiatric/Neurological: No As described under HPI, No anxiety, No depression , No emotional problems, No focal weakness, No headache, No no symptoms reported , No numbness, No other, No pre-existing deficit, No seizure, No syncope, No tingling, No tremors, No weakness Hematologic: No no symptoms reported, No As described under HPI, No anemia, No blood clots, No easy bleeding, No easy bruising, No swollen glands, No other, No bleeding abnormalities All Other Systems Reviewed Negative Unless Noted: Yes PCS-Xqloww-Jckscu Hx Patient Social History Employed/Student: unemployed Alcohol Use: Rarely Uses Recreational Drug Use: No Smoking Status: Current Everyday Smoker Type Used: Cigarettes Recent Foreign Travel: No Recent Infectious Disease Expo: No Physical Abuse Screen: No Sexual Abuse: No Past Medical History PMH As described under Assessment. Family Medical History Family History: Atrial fibrillation 19 MOTHER, Onset:Unknown Cancer of mouth 19 FATHER, Onset:Unknown Headache disorder 19 MOTHER, Onset:Unknown No Family History of: AIDS Abdominal aortic aneurysm Alek's disease Alcoholism Alzheimer's disease Aphasia Arthritis Asthma Cardiovascular disease Cataracts Colon cancer Completed stroke Congenital disease Congenital heart disease Coronary thrombosis Cystic fibrosis Deafness or hearing loss Dementia Diabetes mellitus Drug abuse Dysphasia Fibrocystic disease of breast Gastroenteritis Glaucoma Hypercholesterolemia Hypertension Infertility Kidney disease Myocardial infarction Neoplasm Not obtainable due to adoption Osteoporosis Parkinson's disease Prostate cancer Psychosocial problem Respiratory disorder Seizure disorder Severe allergy Thyroid disease Tuberculosis Visual disorder Allergies and Home Medications Allergies Coded Allergies: NKANo Known Allergies (Verified Allergy, Unknown, 02/17/06) Home Medications Alprazolam 0.5 Mg Tablet, 0.5 MG PO QID PRN for ANXIETY, (Reported) Amitriptyline HCl 50 Mg Tablet, 50 MG PO HS, (Reported) Apixaban 5 Mg Tablet, 10 MG PO BID, #14 Prescribed by: WILLIAM NAVAS on 04/10/17 1051 Apixaban 5 Mg Tablet, 5 MG PO BID, #60 Prescribed by: WILLIAM NAVAS on 04/10/17 1051 Hydrocodone/Acetaminophen 1 Each Tablet, 1 TAB PO Q6H PRN for PAIN-MODERATE, ( Reported) Melatonin 10 Mg Capsule, 10 MG PO HS, (Reported) Metoprolol Tartrate 25 Mg Tablet, 25 MG PO DAILY, (Reported) Pantoprazole Sodium 40 Mg Tablet.dr, 40 MG PO DAILY, (Reported) Ropinirole HCl 2 Mg Tablet, 2 MG PO HS, (Reported) Sumatriptan Succinate 25 Mg Tablet, 25 MG PO UD PRN for HEADACHE, (Reported) MAY REPEAT 1 TIME 2 HOURS LATER Physical Exam-Cardiology Physical Exam Vital Signs/I&O Vital Sign - Last 12Hours 04/10/17 04/10/17 04/10/17 04/10/17 08:01 08:28 09:00 12:00 Temp 98.0 97.1 Pulse 66 65 57 Resp 20 20 B/P (MAP) 123/81 121/73 Pulse Ox 96 98 O2 Delivery Room Air Room Air Room Air 04/10/17 04/10/17 13:54 15:53 Temp 98.0 Pulse 76 65 Resp 20 B/P (MAP) 118/77 Pulse Ox 99 O2 Delivery Room Air Intake and Output 04/10/17 00:00 Intake Total 590 ml Output Total 400 ml Balance 190 ml Capillary Refill : NONE Constitutional: No appears stated age, No AAO x 3, No apparent distress, No PERRL, No well-developed, No well-nourished, No other HEENT: No PERRL, No normal ENT inspection, No TMs normal, No pharynx normal, No scleral icterus (R), No scleral icterus (L), No pale conjunctivae (R), No pale conjunctivae (L), No photophobia, No TM abnormal (R), No TM abnormal (L), No pharyngeal erythema, No tonsillar exudate, No other, No discharge, No EOMI, No hearing is well preserved, No hard of hearing, No oral hygience is good, No ulceration, No xanthelasmas are seen Neck: No non-tender, No full range of motion, No supple, No normal inspection, No carotid bruit, No limited range of motion, No lymphadenopathy (R), No lymphadenopathy (L), No tender lateral, No tender midline, No thyromegaly, No other, No carotid pulses are 2 + bilaterally, No with good upstrokes Respiratory: No accessory muscle use, No respiratory distress, No chest tender , No chest expansion is symmetric, No chest is bilaterally symmetric, No lungs clear to percussion, No lungs clear to auscultation, No crackles, No rhonchi, No rales, No stridor, No wheezing, No pleural rub, No other Cardiovascular: No regular rate-rhythm, No irregularly irregular, No extra beats, No parasternal heave is noted, No JVD, No edema, No bradycardia, No tachycardia, No point of maximal impulse, No cardiac thrills are palpable, No S1 and S2, No gallop/S3, No gallop/S4, No diastolic murmur, No systolic murmur, No friction rub, No click, No other Gastrointestinal: No tender, No soft, No round, No distended, No pulsatile mass , No organomegaly, No guarding, No rebound, No tenderness, No hernia, No mass, No audible bowel sounds, No abnormal bowel sounds, No abdominal bruits, No spleenomegaly, No other Rectal: deferred Extremities: No normal range of motion, No non-tender, No normal inspection, No pedal edema, No calf tenderness, No normal capillary refill, No pelvis stable , No calf tenderness, No inflammation, No pedal edema, No slow capillary refill , No swelling, No other, No abrasion, No clubbing, No cyanosis, No ecchymosis, No laceration, No no lower extremity edema bilateral, No significant edema, No tenderness, No wound Neurologic/Psychiatric: No manager shift II-XII nml as tested, No no motor/sensory deficits, No alert, No normal mood/affect, No oriented x 3, No abnormal cerebellar tests, No abnormal manager shift II-XII, No abnormal gait, No aphasia, No EOM palsy, No facial droop, No motor weakness, No sensory deficit, No depressed affect, No disoriented x 3, No other, No grossly intact, No power is 5/5 both on sides Skin: No normal color, No warm/dry, No cyanosis, No cool, No diaphoresis, No damp, No ecchymosis, No jaundice, No mottled, No pallor, No rash, No tattoos/ piercings, No ulcerations, No rash on exposed areas, No ulcerations on exposed areas, No other Data Review Labs Laboratory Tests 04/09/17 21:40: Activated Partial Thromboplast Time 39H 04/10/17 02:39: Activated Partial Thromboplast Time > 200*H 04/10/17 05:30: Triglycerides Level 122, Cholesterol Level 208H, LDL Cholesterol Direct 153H, VLDL Cholesterol 24, HDL Cholesterol 43 A/P-Cardiology Assessment/Admission Diagnosis Pulmonary embolism, Chest pain, Shortness of breath Plan Pulmonary embolism on Eliquis. Echocardiogram shows RV dysfunction with RV enlargement. Follow-up echocardiogram recommended in 3 months. Active smoking and hypertension: Smoking cessation strongly recommended. Will require nuclear stress testing in the future due to symptoms of shortness of breath and chest pain. I'll be happy to follow as an outpatient as well. Thank you for your consultation. Please call me if you have any questions. Jeyson Reyes MD, FACP, FACC, FSCAI, FHRS, CCDS Interventional Cardiology Cardiac Electrophysiology Vascular Medicine and Endovascular Interventions Clinical Quality Measures AMI/AHF: ASA po Prior to arrival: No DVT/VTE Risk/Contraindication: Risk Factor Score Per Nursin RFS Level Per Nursing on Admit: 4+=Very High Lonny REYES MD Apr 10, 2017 4:12 pm
[2017-04-10] MEDS ORDERED: MELATONIN 3 MG TABLET PO PRN (18:00)
[2017-04-10 18:15] VITALS: BP 118/77
[2017-04-10] MEDS ORDERED: rOPINIRole 1 MG (REQUIP) TABLET PO SCH (21:00)
--- NOTE | 2017-04-13 00:32 | CONSULTATION REPORT ---
DATE OF CONSULTATION: 04/10/2017 REFERRING AND PRIMARY PHYSICIAN: Yeni Vasquez DO IMPRESSION: 1. 47-year-old female admitted with right upper and lower lobe PE, rule out thrombophilia. 2. 3 month history of intermittent palpitations, rule out cardiac arrhythmia. 3. Tobacco use. RECOMMENDATIONS: 1. Agree with obtaining factor II in fact of V mutation analysis because of her young age. 2. Will not do the rest of the thrombophilia work-up as the patient had an acute thrombosis and is on anticoagulation with heparin and Eliquis. 3. Agree with anticoagulation as you are doing for 6 months. 4. Agree with echocardiogram and cardiology worked up to rule out cardiac arrhythmia as cause for thrombosis. 5. Strongly advised against tobacco use and offered help. The patient is seriously considering quitting on her own. 6. [facility] 2 months. BRIEF HISTORY: Mrs. Al is a 47-year-old female evaluated at the emergency room yesterday because of increasing shortness of breath and found to have right upper and lower lobe pulmonary embolism. She was admitted to the hospital for further work-up and management. Because of her young age, hematology consultation was obtained to rule out thrombophilia. The patient gives a history of not feeling well for the last several months. She gives history of intermittent palpitations during this time but never had an evaluation done. Since the last 2 weeks she started becoming more fatigued and short of breath and had some chest discomfort. She had her pulse checked at home during one of the episodes of palpitations yesterday and the rate was in the 180 range. Once the palpitations improved, her pulse rate was still 120 and she decided to come to the emergency room. She denied any long trips or immobilization or hospitalization recently. She has not started any new medications including [id number] hormone replacement therapy. She denied any trauma recently. PAST MEDICAL HISTORY: Significant for history of: 1. Gastroesophageal disease and hiatal hernia requiring surgery in the past. 2. She has anxiety disorder for which she is taking medications. 3. She has a long history of cluster headaches with work-up in the past. 4. She has a questionable history of migraine with visual aura intermittently. 5. History of hypertension for several years for which she is taking treatment. 6. No other medical problems. PRIOR SURGERIES: Include: 1. Tonsillectomy and adenoidectomy in the past. 2. 2 C-sections followed by tubal ligation. 3. She underwent hysterectomy approximately 10 years ago for menorrhagia. 7. She has had 2 arthroscopic surgeries of the left knee. SOCIAL HISTORY: The patient is and lives in [place], [place]. She has 2 children, a son who lives in [place] and a daughter who is currently living in the [place] area. 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 She has 25 year history of tobacco use, averaging less than 1 pack of cigarettes a day. Most recently she has been smoking 1/2 pack of cigarettes a day, but is trying to quit following this hospitalization. She denied any significant alcohol or other recreational drug use. ALLERGIES: She has no known drug allergies. HOME MEDICATIONS: Reviewed in the EMR. FAMILY HISTORY: Significant for a maternal uncle with a history of colon cancer while in his 40s. Maternal grandmother had breast cancer while in her late 60s. No other malignancies in the family that she knows of. Maternal grandmother may have had a malignancy, but she is unclear about this. No family history of thrombosis. No other history of hematologic problems. PHYSICAL EXAMINATION: Today showed middle-aged female, well-developed, and nourished, awake, and oriented otherwise in no acute distress. VITAL SIGNS: Her temperature was 98, pulse rate of 66, respiratory rate 20, blood pressure 123/81, and oxygen saturation of 96% on room air. HEENT: Normocephalic, extraocular muscles intact. Conjunctivae pink, oral mucosa moist without lesions. NECK: Supple with no JVD. No cervical, supraclavicular, or axillary lymphadenopathy palpable. CHEST: Chest was symmetrical. LUNGS: Fairly clear to auscultation without wheezes or rales. CARDIOVASCULAR EXAM: Was fairly regular in rate and rhythm with a rare missed beat. No murmurs or gallops heard. ABDOMEN: Slightly obese, soft, nontender, with no hepatosplenomegaly or other masses palpable. EXTREMITIES: Showed no edema. No calf muscle tenderness palpable. NEUROLOGICAL EXAM: Grossly intact without focal motor deficits. LABORATORY: CBC done yesterday showed WBC 8.4, hemoglobin 14.8, platelet count 271,000 with normal automated differential count. Chemistry panel showed normal electrolytes, except potassium level of 3.4, BUN was 10, creatinine 0.89 with a GFR more than 60 mL per minute. Nonfasting glucose was 114. Liver function studies were within normal limits. Chest x-ray done yesterday in the emergency room was unremarkable. CT angiogram of the chest showed multifocal embolism involving the right upper lobe and right lower lobe. Venous Doppler studies of bilateral lower extremities was negative with no evidence of deep venous thrombosis. Continue Eliquis as you are doing at 10 mg b.i.d. x7 days and then 5 mg b.i.d. [facility] in 6 to 8 weeks. Thank you for allowing me to participate in this patient's care. Job ID: [id number] Dictated Date: 04/10/2017 10:50:57 Slot Floor Attendant Date: 04/13/2017 00:15:34/devante
[2017-04-18] MEDS ORDERED: APIXABAN 5 MG (ELIQUIS) TABLET PO SCH (09:00)
== END 2017-04-10 18:15 | disposition home or self-care (01) | DRG 176 ==
LOC: EDUNIT# 15:21 → ER 15:24 → 4TH 17:39
PROVIDERS: ADMIT Internal Medicine; ATTEND Internal Medicine Critical Care Medicine
DX: I26.99 Other pulmonary embolism without acute cor pulmonale (principal); F17.210 Nicotine dependence, cigarettes, uncomplicated; M54.9 Dorsalgia, unspecified; F32.9 Major depressive disorder, single episode, unspecified; F41.9 Anxiety disorder, unspecified; I10 Essential (primary) hypertension; K21.9 Gastro-esophageal reflux disease without esophagitis; Z80.0 Family history of malignant neoplasm of digestive organs; Z80.3 Family history of malignant neoplasm of breast
CPT/HCPCS: 36415; 71010; 71275; 80053; 80061; 81240; 81241; 82150; 83690; 83735; 83874; 83880; 84484; 85025; 85379; 85610; 85730; 93005; 93041; 93306; 93970; 96374; 96375

== ENCOUNTER 2017-07-01 09:04 | Outpatient (RCR) | payer OTHER ==
[~2017-07-01 09:04] MED LIST changes: +ALPR0.5T PO; +APIX5TAB PO; +HYDR-3820 PO; +MELA10CA2 PO; +PANT40TA2 PO; +ROPI2TAB3 PO; +ROPI2TAB4 PO
== END 2017-09-29 | disposition home or self-care (01) ==
LOC: ONC 09:04
PROVIDERS: ATTEND Internal Medicine Hematology & Oncology
DX: I26.99 Other pulmonary embolism without acute cor pulmonale (principal); F17.210 Nicotine dependence, cigarettes, uncomplicated; M54.9 Dorsalgia, unspecified; F32.9 Major depressive disorder, single episode, unspecified; F41.9 Anxiety disorder, unspecified; I10 Essential (primary) hypertension; K21.9 Gastro-esophageal reflux disease without esophagitis; Z80.0 Family history of malignant neoplasm of digestive organs; Z80.3 Family history of malignant neoplasm of breast
CPT/HCPCS: 99213

== ENCOUNTER → 2017-09-03 | Outpatient (CLI) | payer OTHER | LOC: CARD 09:51 | PROVIDERS: ATTEND Internal Medicine Interventional Cardiology | DX: R07.9 Chest pain, unspecified (principal); R06.09 Other forms of dyspnea | CPT/HCPCS: 93306 ==

== ENCOUNTER → 2017-09-10 | Outpatient (CLI) | payer OTHER ==
[~2017-09-10] VITALS: Ht 177.8 cm; Wt 99.3 kg
[~2017-09-10] MED LIST changes: +CATHETER FLUSH 10 ML SYR IV PRN; +REGADENOSON 0.4 MG/5 ML SYR (LEXISCAN) IV ONE
[2017-09-10 09:43] VITALS: BP 130/82
[2017-09-10 09:47] VITALS: BP 148/91
--- NOTE | 2017-09-11 21:22 | STRESS TEST ---
DATE OF SERVICE: 09/10/2017 PHARMACOLOGICAL NUCLEAR STRESS TEST REPORT ATTENDING PHYSICIAN: Dr. Reyes. PRIMARY PHYSICIAN: Dr. Harmon. DIAGNOSIS: Chest pain syndrome, shortness of breath. PROCEDURE DETAILS: The patient was brought to the stress lab after informed consent was taken. Pharmacological nuclear stress test was performed according to the Lexiscan protocol. A 0.4 mg of IV Lexiscan was given intravenously. Low grade exercise was performed. Her resting heart rate was 77 BPM, sinus rhythm. Blood pressure was 130/82 mmHg. Maximum heart rate was 125 BPM and blood pressure was 140/91 mmHg. The patient did not have any chest pain, arrhythmias or ST changes during the stress test. A 10.90 mCi of Myoview was given for rest imaging and 29.9 mCi of Myoview was given for stress imaging. TID was 0.93, ejection fraction is 66%. No wall motion abnormalities. Normal perfusion during rest and stress imaging. IMPRESSION/CONCLUSION: 1. Pharmacological stress test negative for ischemia. 2. Normal LV function with no wall motion abnormalities. 3. Normal perfusion during stress and rest imaging. Job ID: [id number] DocumentID: [id number] Dictated Date: 09/11/2017 16:11:48 Nurse Chemical Dependency Date: 09/11/2017 20:24:51 Dictated By: KASSI REYES MD
== END ==
LOC: CARD 08:13
PROVIDERS: ATTEND Internal Medicine Interventional Cardiology
DX: R07.9 Chest pain, unspecified (principal); R06.09 Other forms of dyspnea
CPT/HCPCS: 78452; 93017

== ENCOUNTER 2018-03-03 08:35 | Emergency (ER) | payer SELFPAY ==
[~2018-03-03] VITALS: Ht 177.8 cm; Wt 94.3 kg
[~2018-03-03 08:35] MED LIST changes: -CATHETER FLUSH 10 ML SYR IV PRN; -REGADENOSON 0.4 MG/5 ML SYR (LEXISCAN) IV ONE
--- OUTSIDE RECORDS SUMMARY | 2018-03-03 08:41 | XMS REPORT | Clinical Summary ---
Author Author [facility] Organization [facility] Address Unknown Phone Unavailable Care Team Providers Care Housekeeper/Custodian/Laundry Worker Name Role Phone PCP Unavailable Source Comments Some departments are not documenting in the electronic medical record. If you do not see the information that you expected, contact Release of Information in the Health Information Management department at [phone] for further assistance in locating additional records.[facility] Allergies Not on File Current Medications Not on file Active Problems Not on file Social History Tobacco Use Types Packs/Day Years Used Date Never Assessed Sex Assigned at Date Recorded Not on file Last Filed Vital Signs Not on file Plan of Treatment Health Maintenance Due Date Last Done Comments PHYSICAL (COMPREHENSIVE) 1978 EXAM PERTUSSIS VACCINE 1982 HIV SCREENING 1986 TETANUS VACCINE 02/04/1988 CERVICAL CANCER SCREENING 2001 BREAST CANCER SCREENING 2011 INFLUENZA VACCINE 06/28/2018 Results Not on filefrom Last 3 Months
[2018-03-03] MEDS ORDERED: NITROGLYCERIN 0.4 MG SL TABS BTL 25'S SL PRN (09:00)
[2018-03-03] MEDS ORDERED: ASPIRIN 81 MG CHEW (CHILDREN'S ASA) PO ONE (09:00)
[2018-03-03 09:20] VITALS: BP 110/70
--- NOTE | 2018-03-03 09:20 | Diagnostic Imaging Report ---
Indication: Respiratory distress. Portable chest at 9:06 AM Heart size and pulmonary vascularity are normal. Lungs are clear. There are no effusions or pneumothoraces. Impression: Negative chest. Dictated by: Dictated on workstation # [id number]
[2018-03-03 09:25] LABS: BASOPHILS % (AUTO) 0 % (0-10); EOSINOPHILS # (AUTO) 0.1 10^3/uL (0.0-0.3); EOSINOPHILS % (AUTO) 2 % (0-10); HEMATOCRIT 38 % (35-52); HEMOGLOBIN 13.5 G/DL (11.5-16.0); LYMPHOCYTES # (AUTO) 1.9 X 10^3 (1.0-4.0); LYMPHOCYTES % (AUTO) 24 % (12-44); MEAN CORPUSCULAR HEMOGLOBIN 32 PG (25-34); MEAN CORPUSCULAR HGB CONC 35 G/DL (32-36); MEAN CORPUSCULAR VOLUME 90 FL (80-99); MEAN PLATELET VOLUME 10.6 FL (7.4-10.4); MONOCYTES # (AUTO) 0.7 X 10^3 (0.0-1.0); MONOCYTES % (AUTO) 9 % (0-12); NEUTROPHILS # (AUTO) 5.2 X 10^3 (1.8-7.8); NEUTROPHILS % (AUTO) 65 % (42-75); PLATELET COUNT 226 10^3/uL (130-400); RED BLOOD COUNT 4.25 10^6/uL (4.35-5.85); RED CELL DISTRIBUTION WIDTH 13.9 % (10.0-14.5); WHITE BLOOD COUNT 7.9 10^3/uL (4.3-11.0)
[2018-03-03 09:35] LABS: INR 1.2 (0.8-1.4); PROTHROMBIN TIME PATIENT 14.9 SEC (12.2-14.7)
[2018-03-03 09:44] LABS: ALANINE AMINOTRANSFERASE 16 U/L (0-55); ALBUMIN 4.2 GM/DL (3.2-4.5); ALKALINE PHOSPHATASE 63 U/L (40-136); BILIRUBIN,TOTAL 0.9 MG/DL (0.1-1.0); BUN/CREATININE RATIO 14; CALCIUM 9.5 MG/DL (8.5-10.1); CARBON DIOXIDE 25 MMOL/L (21-32); CHLORIDE 102 MMOL/L (98-107); CREATININE SERUM 1.56 MG/DL (0.60-1.30); GFR ESTIMATED 36; GLUCOSE 121 MG/DL (70-105); MAGNESIUM 2.3 MG/DL (1.8-2.4); POTASSIUM 3.7 MMOL/L (3.6-5.0); SODIUM 137 MMOL/L (135-145); TOTAL PROTEIN 7.6 GM/DL (6.4-8.2)
[2018-03-03 09:51] LABS: MYOGLOBIN SERUM 193.2 NG/ML (10.0-92.0)
[2018-03-03] MEDS ORDERED: NS IV 1000 ML 1,000 ML IV ONE (10:11)
[2018-03-03] MEDS ORDERED: fentaNYL INJECTION 100 MCG/2 ML AMP IVP ONE (10:30)
[2018-03-03] MEDS ORDERED: NS 250 ML (IVPB) BAG IV ONE (11:00)
[2018-03-03] MEDS ORDERED: IOHEXOL 350 MG/ML 100 ML (OMNIPAQUE 350) VIAL IV ONE (11:00)
--- NOTE | 2018-03-03 11:38 | Diagnostic Imaging Report ---
PROCEDURE: CT angiography of the chest with contrast. TECHNIQUE: Multiple contiguous axial images were obtained through the chest after uneventful bolus administration of intravenous contrast. Reconstructed CTA MIP acquisitions were also performed. INDICATION: Chest pain and difficulty breathing. COMPARISON: 04/09/2017 FINDINGS: Evaluation of the pulmonary arteries is somewhat limited due to suboptimal contrast bolus. There does appear to be however significant embolus within the distal right main pulmonary artery extending into the segmental branches to the right lower lobe and right middle lobe as well as the posterior right upper lobe. When compared to the prior CT in which there was some pulmonary embolus present, findings are much more extensive and acute today. Also suspect some embolus within the segmental branches to the left upper lobe and lingula. There is no evidence of right heart failure. There is no adenopathy. There is no pneumothorax or pleural fluid. The lungs are clear. No acute abnormality is suspected in the visualized abdomen. IMPRESSION: Evaluation of pulmonary arteries is suboptimal due to suboptimal contrast bolus. There is however, extensive bilateral PE particularly on the right as described above significantly worse when compared to prior exam from March. Findings were phoned to the referring physician at time of dictation by Dr. Nuvia Luna. Dictated by: Dictated on workstation # [id number]
[2018-03-03] MEDS ORDERED: ENOXAPARIN 100 MG/1 ML (LOVENOX) SYR SC ONE (11:45)
[2018-03-03] MEDS ORDERED: KETOROLAC 30 MG/ML VIAL IVP ONE (12:00)
--- NOTE | 2018-03-03 12:06 | ED Chest Pain ---
General Chief Complaint: Chest Pain Stated Complaint: BREATHING TROUBLES,CHEST TIGHTNESS Nursing Triage Note: [id number] ROOM C/O CHEST TIGHTNESS AND FEELING SOA. Nursing Sepsis Screen: No Definite Risk Source: patient Exam Limitations: no limitations History of Present Illness Date Seen by Provider: Mar 03, 2018 Time Seen by Provider: 08:55 Initial Comments This 48-year-old woman presents to the emergency room with sudden onset of chest pain/tightness and shortness of breath. She had been resting in a recliner when the pain hit her suddenly. She collapsed to the floor without injury. Patient notes that she had a pulmonary embolism last year and has been under workup by Dr. Hickey. She stopped Eliquis about one month ago and was to have follow-up with Dr. Hickey for further testing. She neglected to follow -up. Patient has no history of heart disease. She had a stress test in August of last year which was negative for ischemia. Ejection fraction was 66 percent. She reports increased swelling in her legs over the last 3 weeks. She continues to smoke. The time of this incident was about 07:30. She also reports of some discomfort in her left arm and neck. Pain at this time is rated as 5/10. She generally feels weak as well. Allergies and Home Medications Allergies Coded Allergies: Alan Known Allergies (Verified Allergy, Unknown, 02/17/06) Home Medications Alprazolam 0.5 Mg Tablet, 0.5 MG PO QID PRN for ANXIETY, (Reported) Amitriptyline HCl 50 Mg Tablet, 50 MG PO HS, (Reported) Apixaban 5 Mg Tablet, 10 MG PO BID Prescribed by: WILLIAM NAVAS on 04/10/17 1051 Apixaban 5 Mg Tablet, 5 MG PO BID Prescribed by: WILLIAM NAVAS on 04/10/17 1051 Hydrocodone/Acetaminophen 1 Each Tablet, 1 TAB PO Q6H PRN for PAIN-MODERATE, ( Reported) Melatonin 10 Mg Capsule, 10 MG PO HS, (Reported) Metoprolol Tartrate 25 Mg Tablet, 25 MG PO DAILY, (Reported) Pantoprazole Sodium 40 Mg Tablet.dr, 40 MG PO DAILY, (Reported) Ropinirole HCl 2 Mg Tablet, 2 MG PO HS, (Reported) Sumatriptan Succinate 25 Mg Tablet, 25 MG PO UD PRN for HEADACHE, (Reported) MAY REPEAT 1 TIME 2 HOURS LATER Patient Home Medication List Home Medication List Reviewed: Yes Review of Systems Constitutional: see HPI EENTM: No Symptoms Reported Respiratory: See HPI Cardiovascular: See HPI Gastrointestinal: No Symptoms Reported Genitourinary: No Symptoms Reported Musculoskeletal: no symptoms reported Skin: no symptoms reported Psychiatric/Neurological: No Symptoms Reported Endocrine: No Symptoms Reported Hematologic/Lymphatic: No Symptoms Reported Past Mdhtuqw-Aprmwj-Egapqc Hx Past Med/Social Hx: Reviewed and Corrections made Patient Social History Alcohol Use: Denies Use Number of Drinks Today: FF Alcohol Beverage of Choice: Vodka Recreational Drug Use: No Smoking Status: Current Everyday Smoker Type Used: Cigarettes Recent Foreign Travel: No Contact w/Someone Who Travel: No Recent Infectious Disease Expo: No Recent Hopitalizations: No Seasonal Allergies Seasonal Allergies: No Past Medical History Surgeries: Yes (ceserean section x 2, LEFT KNEE SCOPE, THROAT) Section, Hysterectomy, Orthopedic, Tonsillectomy Respiratory: Yes Pulmonary Embolism Cardiac: Yes Hypertension Neurological: Yes Headaches /Migraines : No Reproductive Disorders: No 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 Sexually Transmitted Disease: No HIV/AIDS: No Genitourinary: No Gastrointestinal: No (SURGERY FOR GERD) Gastroesophageal Reflux Musculoskeletal: Yes Arthritis Endocrine: No HEENT: No Loss of Vision: Denies Hearing Impairment: Denies Cancer: No Psychosocial: Yes Depression Integumentary: No Blood Disorders: No Family Medical History Reviewed Nursing Family Hx Atrial fibrillation 19 MOTHER, Onset:Unknown Cancer of mouth 19 FATHER, Onset:Unknown Headache disorder 19 MOTHER, Onset:Unknown No Family History of: AIDS Abdominal aortic aneurysm [place]'s disease Alcoholism Alzheimer's disease Aphasia Arthritis Asthma Cardiovascular disease Cataracts Colon cancer Completed stroke Congenital disease Congenital heart disease Coronary thrombosis Cystic fibrosis Deafness or hearing loss Dementia Diabetes mellitus Drug abuse Dysphasia Fibrocystic disease of breast Gastroenteritis Glaucoma Hypercholesterolemia Hypertension Infertility Kidney disease Myocardial infarction Neoplasm Not obtainable due to adoption Osteoporosis Parkinson's disease Prostate cancer Psychosocial problem Respiratory disorder Seizure disorder Severe allergy Thyroid disease Tuberculosis Visual disorder Physical Exam Vital Signs Vital Signs - First Documented 03/03/18 09:20 Temp 97.0 Pulse 82 Resp 18 B/P (MAP) 110/70 (83) Capillary Refill : Less Than 3 Seconds General Appearance: WD/WN, Anxious HEENT: PERRL/EOMI, Normal ENT Inspection Neck: Normal Inspection Respiratory: Chest Non Tender, Lungs Clear, Normal Breath Sounds, No Accessory Muscle Use, No Respiratory Distress Cardiovascular: Regular Rate, Rhythm, No Edema, No Murmur Gastrointestinal: Normal Bowel Sounds, Non Tender, Soft Extremity: Normal Inspection, Non Tender, No Calf Tenderness, No Pedal Edema Neurologic/Psychiatric: Alert, Oriented x3, No Motor/Sensory Deficits, joint creaser II- XII Norm as Tested, Other (anxious, tearful) Skin: Normal Color, Warm/Dry Progress/Results/Core Measures Results/Orders Lab Results Laboratory Tests Test 03/03/18 09:09 Range/Units White Blood Count 7.9 4.3-11.0 10^3/uL Red Blood Count 4.25 L 4.35-5.85 10^6/uL Hemoglobin 13.5 11.5-16.0 G/DL Hematocrit 38 35-52 % Mean Corpuscular Volume 90 80-99 FL Mean Corpuscular Hemoglobin 32 25-34 PG Mean Corpuscular Hemoglobin Concent 35 32-36 G/DL Red Cell Distribution Width 13.9 10.0-14.5 % Platelet Count 226 130-400 10^3/uL Mean Platelet Volume 10.6 H 7.4-10.4 FL Neutrophils (%) (Auto) 65 42-75 % Lymphocytes (%) (Auto) 24 12-44 % Monocytes (%) (Auto) 9 0-12 % Eosinophils (%) (Auto) 2 0-10 % Basophils (%) (Auto) 0 0-10 % Neutrophils # (Auto) 5.2 1.8-7.8 X 10^3 Lymphocytes # (Auto) 1.9 1.0-4.0 X 10^3 Monocytes # (Auto) 0.7 0.0-1.0 X 10^3 Eosinophils # (Auto) 0.1 0.0-0.3 10^3/uL Basophils # (Auto) 0.0 0.0-0.1 10^3/uL Prothrombin Time 14.9 H 12.2-14.7 SEC INR Comment 1.2 0.8-1.4 Activated Partial Thromboplast Time 29 24-35 SEC D-Dimer 6.32 H 0.00-0.49 UG/ML Sodium Level 137 135-145 MMOL/L Potassium Level 3.7 3.6-5.0 MMOL/L Chloride Level 102 98-107 MMOL/L Carbon Dioxide Level 25 21-32 MMOL/L Anion Gap 10 5-14 MMOL/L Blood Urea Nitrogen 22 H 7-18 MG/DL Creatinine 1.56 H 0.60-1.30 MG/DL Estimat Glomerular Filtration Rate 36 BUN/Creatinine Ratio 14 Glucose Level 121 H 70-105 MG/DL Calcium Level 9.5 8.5-10.1 MG/DL Magnesium Level 2.3 1.8-2.4 MG/DL Total Bilirubin 0.9 0.1-1.0 MG/DL Aspartate Amino Transf (AST/SGOT) 17 5-34 U/L Alanine Aminotransferase (ALT/SGPT) 16 0-55 U/L Alkaline Phosphatase 63 40-136 U/L Myoglobin 193.2 H 10.0-92.0 NG/ML Troponin I < 0.30 <0.30 NG/ML Total Protein 7.6 6.4-8.2 GM/DL Albumin 4.2 3.2-4.5 GM/DL My Orders Orders - MICHEAL MARVIN MD Cbc With Automated Diff (03/03/18 08:55) Magnesium (03/03/18 08:55) Chest 1 View, Ap/Pa Only (03/03/18 08:55) Ekg Tracing (03/03/18 08:55) Cardiac Profile 1 (03/03/18 08:55) Comprehensive Metabolic Panel (03/03/18 08:55) Myoglobin Serum (03/03/18 08:55) Protime With Inr (03/03/18 08:55) Partial Thromboplastin Time (03/03/18 08:55) O2 (03/03/18 08:55) Monitor-Rhythm Ecg Trace Only (03/03/18 08:55) Aspirin Chewable Tablet (Baby Aspirin Ch (03/03/18 09:00) Nitroglycerin 0.4 Mg Btl 25's (Nitrostat (03/03/18 09:00) Saline Lock/Iv-Start (03/03/18 08:55) Fibrin Degradation Products (03/03/18 08:55) Saline Lock/Iv-Start (03/03/18 10:11) Ns Iv 1000 Ml (Sodium Chloride 0.9%) (03/03/18 10:11) Ct Angio Chest W (03/03/18 10:14) Fentanyl Injection (Sublimaze Injection (03/03/18 10:30) Iohexol Injection (Omnipaque 350 Mg/Ml 1 (03/03/18 11:00) Ns (Ivpb) (Sodium Chloride 0.9%) (03/03/18 11:00) Pharmacy Communication (Pharmacy Communi (03/03/18 10:51) Enoxaparin Injection (Lovenox Injection) (03/03/18 11:45) Ketorolac Injection (Toradol Injection) (03/03/18 12:00) Medications Given in ED Vital Signs/I&O 03/03/18 09:20 Temp 97.0 Pulse 82 Resp 18 B/P (MAP) 110/70 (83) Blood Pressure Mean: 83 Progress Progress Note : Time: 12:02 Progress Note Cardiac workup was unremarkable. However, d-dimer was significantly elevated. CT angiogram was pursued. Patient has some mild renal failure and IV fluids were initiated. I did discuss pursuing the CT angiogram with Dr. Steinberg prior to ordering, and he recommended IV hydration. Patient was found to have bilateral pulmonary emboli, larger than on prior imaging. Case was reviewed with Dr. Prater who recommended starting treatment with Lovenox in the ER and advised the patient to present to his office today for a starter pack of Eliquis. Patient's vital signs remained stable throughout her ER stay. She did not require admission to the hospital. Initial ECG Impression Date: Mar 03, 2018 Initial ECG Impression Time: 08:42 Initial ECG Rate: 79 Initial ECG Rhythm: Normal Sinus Initial ECG Intervals: Normal Initial ECG Impression: Normal Comment Normal sinus rhythm with no ST elevation or depression. No abnormal intervals or axis deviation. Diagnostic Imaging Diagonstic Imaging: Xray Plain Films/CT/US/NM/MRI: chest Comments Chest x-ray viewed by me and report reviewed. See report below: NAME: [facility] REC#: [id number] PT STATUS: REG ER : 1970 PHYSICIAN: MICHEAL MARVIN MD ADMIT DATE: 03/03/18/ER Signed Date of Exam: 03/03/18 CHEST 1 VIEW, AP/PA ONLY Indication: Respiratory distress. Portable chest at 9:06 AM Heart size and pulmonary vascularity are normal. Lungs are clear. There are no effusions or pneumothoraces. Impression: Negative chest. Dictated by: Dictated on workstation # [id number] Dict: 03/03/18 0918 Trans: 03/03/18 1003 Interpreted by: HARDY GALINDO MD Electronically signed by: HARDY GALINDO MD 03/03/18 1003 Diagonstic Imaging: CT Plain Films/CT/US/NM/MRI: chest Comments CT angiogram viewed by me and report reviewed. See report below: NAME: [facility] REC#: [id number] PT STATUS: REG ER : 1970 PHYSICIAN: MICHEAL MARVIN MD ADMIT DATE: 03/03/18/ER Signed Date of Exam: 03/03/18 CT ANGIO CHEST W PROCEDURE: CT angiography of the chest with contrast. TECHNIQUE: Multiple contiguous axial images were obtained through the chest after uneventful bolus administration of intravenous contrast. Reconstructed CTA MIP acquisitions were also performed. INDICATION: Chest pain and difficulty breathing. COMPARISON: 04/09/2017 FINDINGS: Evaluation of the pulmonary arteries is somewhat limited due to suboptimal contrast bolus. There does appear to be however significant embolus within the distal right main pulmonary artery extending into the segmental branches to the right lower lobe and right middle lobe as well as the posterior right upper lobe. When compared to the prior CT in which there was some pulmonary embolus present, findings are much more extensive and acute today. Also suspect some embolus within the segmental branches to the left upper lobe and lingula. There is no evidence of right heart failure. There is no adenopathy. There is no pneumothorax or pleural fluid. The lungs are clear. No acute abnormality is suspected in the visualized abdomen. IMPRESSION: Evaluation of pulmonary arteries is suboptimal due to suboptimal contrast bolus. There is however, extensive bilateral PE particularly on the right as described above significantly worse when compared to prior exam from March. Findings were phoned to the referring physician at time of dictation by Dr. Nuvia Oswald. Dictated by: Dictated on workstation # [id number] Dict: 03/03/18 1126 Trans: 03/03/18 1141 Interpreted by: DI OSWALD DO Electronically signed by: DI OSWALD DO 03/03/18 1141 Departure Impression Primary Impression: Pulmonary emboli Qualified Codes: I26.99 - Other pulmonary embolism without acute cor pulmonale Additional Impression: Renal insufficiency Disposition: 01 HOME, SELF-CARE Condition: Improved Departure-Patient Inst. Decision time for Depature: 11:55 Referrals: ALFREDO FRANCES MD (PCP/Family) Primary Care Physician Patient Instructions: Pulmonary Embolism (Blood Clot in the Lungs) Add. Discharge Instructions: It is very important that you take up a starter pack of Eliquis from Dr. Prater' s office today. Your treatment with the Lovenox shot and Eliquis must overlap. Make a follow-up appointment to visit with your primary care provider and Dr. Prater as soon as possible. Return to emergency room if you have worsening symptoms. Drink plenty of clear liquids today to support your kidney health and flush out the IV contrast. All discharge instructions reviewed with patient and/or family. Voiced understanding. Copy Copies To 1: JOSÉ PRATER Copies To 2: ALFREDO FRANCES MD, JOSHUA T MD Mar 03, 2018 12:06
== END 2018-03-03 13:00 | disposition home or self-care (01) ==
LOC: EDUNIT# 08:35 → ER 08:36
DX: I26.99 Other pulmonary embolism without acute cor pulmonale (principal); N28.9 Disorder of kidney and ureter, unspecified; I10 Essential (primary) hypertension; G43.909 Migraine, unspecified, not intractable, without status migrainosus; K21.9 Gastro-esophageal reflux disease without esophagitis; F32.9 Major depressive disorder, single episode, unspecified; F17.210 Nicotine dependence, cigarettes, uncomplicated; Z87.59 Personal history of other complications of pregnancy, childbirth and the puerperium; Z90.710 Acquired absence of both cervix and uterus; Z90.89 Acquired absence of other organs; Z79.01 Long term (current) use of anticoagulants; Z82.49 Family history of ischemic heart disease and other diseases of the circulatory system
CPT/HCPCS: 36415; 71045; 71275; 80053; 83735; 83874; 84484; 85025; 85379; 85610; 85730; 93005; 93041; 96361; 96372; 96374

== ENCOUNTER → 2018-03-11 | Outpatient (CLI) | payer SELFPAY ==
--- NOTE | 2018-03-11 15:57 | Diagnostic Imaging Report ---
PROCEDURE: US left lower extremity venous. TECHNIQUE: Multiple real-time grayscale images were obtained over the left lower extremity in various projections. Additional duplex Doppler and color Doppler images were also obtained. INDICATION: Left leg swelling. FINDINGS: There is no evidence of a left lower extremity DVT. Left lower extremity deep venous system shows normal compressibility with normal response to augmentation and Valsalva. No fluid collection or mass is seen. IMPRESSION: No evidence of left lower extremity DVT. Dictated by: Dictated on workstation # [id number]
== END ==
LOC: RAD 15:23
PROVIDERS: ATTEND Internal Medicine Hematology & Oncology
DX: D68.59 Other primary thrombophilia (principal); I26.99 Other pulmonary embolism without acute cor pulmonale

== ENCOUNTER → 2018-04-05 | Outpatient (CLI) | payer SELFPAY ==
[~2018-04-05] MED LIST changes: +CLIN300C11 PO; +HYDR-3990 PO; +IOHEXOL 350 MG/ML 100 ML (OMNIPAQUE 350) VIAL IV ONE; +NS 250 ML (IVPB) BAG IV ONE
--- NOTE | 2018-04-05 08:44 | Diagnostic Imaging Report ---
PROCEDURE: CT abdomen and pelvis with contrast. TECHNIQUE: Multiple contiguous axial images were obtained through the abdomen and pelvis after administration of intravenous contrast. INDICATION: Thrombophilia. COMPARISON: No prior studies are available for comparison. FINDINGS: The lung bases are clear. The liver demonstrates generalized low density consistent with hepatic steatosis. No discrete liver mass is identified. The gallbladder is surgically absent. The pancreas and spleen are unremarkable. No adrenal mass is identified. The kidneys are unremarkable. Aorta is non-aneurysmal. The small and large bowel loops are normal caliber. No obstruction is seen. There is no ascites. No central retroperitoneal or mesenteric lymphadenopathy is identified. The bladder is unremarkable. The uterus appears to be absent or atrophic. No pelvic lymphadenopathy is seen. IMPRESSION: 1. Hepatic steatosis. 2. Otherwise unremarkable CT of the abdomen and pelvis. Dictated by: Dictated on workstation # [id number]
== END ==
LOC: RAD 08:04
PROVIDERS: ATTEND Internal Medicine Hematology & Oncology
DX: K76.0 Fatty (change of) liver, not elsewhere classified (principal); D68.59 Other primary thrombophilia
CPT/HCPCS: 74177

== ENCOUNTER 2018-04-12 13:01 | Outpatient (RCR) | payer OTHER ==
[2018-03-08 10:43] LABS: ALANINE AMINOTRANSFERASE 21 U/L (0-55); ALBUMIN 3.6 GM/DL (3.2-4.5); ALKALINE PHOSPHATASE 56 U/L (40-136); BILIRUBIN,TOTAL 0.3 MG/DL (0.1-1.0); BUN/CREATININE RATIO 13; CARBON DIOXIDE 23 MMOL/L (21-32); CHLORIDE 103 MMOL/L (98-107); CREATININE SERUM 0.77 MG/DL (0.60-1.30); GFR ESTIMATED > 60; GLUCOSE 122 MG/DL (70-105); POTASSIUM 3.7 MMOL/L (3.6-5.0); SODIUM 137 MMOL/L (135-145); TOTAL PROTEIN 6.5 GM/DL (6.4-8.2)
[~2018-04-12 13:01] MED LIST changes: -CLIN300C11 PO; -HYDR-3990 PO; -IOHEXOL 350 MG/ML 100 ML (OMNIPAQUE 350) VIAL IV ONE; -NS 250 ML (IVPB) BAG IV ONE
[2018-05-01] MEDS ORDERED: CLIN300C11 PO (17:20)
[2018-05-01] MEDS ORDERED: HYDR-3990 PO (17:20)
== END 2018-06-06 | disposition home or self-care (01) ==
LOC: ONC 13:01
PROVIDERS: ATTEND Internal Medicine Hematology & Oncology
DX: I26.99 Other pulmonary embolism without acute cor pulmonale (principal); F17.210 Nicotine dependence, cigarettes, uncomplicated; Z79.01 Long term (current) use of anticoagulants
CPT/HCPCS: 36415; 80053; 99213

== ENCOUNTER 2018-05-01 15:45 | Emergency (ER) | payer SELFPAY ==
[~2018-05-01] VITALS: Ht 177.8 cm; Wt 99.8 kg
--- NOTE | 2018-05-01 16:19 | ED Integumentary General ---
General Stated Complaint: SPIDER BITE Source: patient Exam Limitations: no limitations History of Present Illness Date Seen by Provider: May 01, 2018 Time Seen by Provider: 15:50 Initial Comments Patient is a 48-year-old female who presents to the emergency room with complaints of a spider bite to the left inner upper arm. She states that the bite occurred on 04/27/18. She reports being seen at [facility] on and was put on a prescription for Augmentin without improvement. She did not see the spider but thinks it was a brown recluse because they found several in her home. She denies fevers reports nausea and pain. Timing/Duration: changing over time Associated Symptoms: change in skin texture, swelling/mass/lumps Allergies and Home Medications Allergies Coded Allergies: WESTANo Known Allergies (Verified Allergy, Unknown, 02/17/06) Home Medications Alprazolam 0.5 Mg Tablet, 0.5 MG PO QID PRN for ANXIETY, (Reported) Amitriptyline HCl 50 Mg Tablet, 50 MG PO HS, (Reported) Apixaban 5 Mg Tablet, 10 MG PO BID Prescribed by: WILLIAM NAVAS on 04/10/17 1051 Apixaban 5 Mg Tablet, 5 MG PO BID Prescribed by: WILLIAM NAVAS on 04/10/17 1051 Clindamycin HCl 300 Mg Capsule, 300 MG PO Q6H Prescribed by: EVERT HER on 05/01/18 1720 Hydrocodone/Acetaminophen 1 Each Tablet, 1 TAB PO Q6H PRN for PAIN-MODERATE, ( Reported) Hydrocodone/Ibuprofen 1 Each Tablet, 1 EACH PO Q6H Prescribed by: EVERT HER on 05/01/18 1720 Melatonin 10 Mg Capsule, 10 MG PO HS, (Reported) Metoprolol Tartrate 25 Mg Tablet, 25 MG PO DAILY, (Reported) Pantoprazole Sodium 40 Mg Tablet.dr, 40 MG PO DAILY, (Reported) Ropinirole HCl 2 Mg Tablet, 2 MG PO HS, (Reported) Sumatriptan Succinate 25 Mg Tablet, 25 MG PO UD PRN for HEADACHE, (Reported) MAY REPEAT 1 TIME 2 HOURS LATER Patient Home Medication List Home Medication List Reviewed: Yes Constitutional: see HPI; No chills, No fever Skin: see HPI, change in color, lesions, other (swelling and redness to the bite area on her left upper inner forearm.) Past Uojaxqp-Azdsto-Xsuubj Hx Past Med/Social Hx: Reviewed Nursing Past Med/Soc Hx Patient Social History Alcohol Beverage of Choice: Vodka Type Used: Cigarettes Recent Foreign Travel: No Contact w/Someone Who Travel: No Recent Hopitalizations: No Seasonal Allergies Seasonal Allergies: No Past Medical History Surgeries: Yes (ceserean section x 2, LEFT KNEE SCOPE, THROAT) Section, Hysterectomy, Orthopedic, Tonsillectomy Respiratory: No Cardiac: No Hypertension Neurological: Yes Headaches /Migraines Reproductive Disorders: No 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 Sexually Transmitted Disease: No HIV/AIDS: No Genitourinary: No Gastrointestinal: No (SURGERY FOR GERD) Gastroesophageal Reflux Musculoskeletal: Yes Arthritis Endocrine: No Loss of Vision: Denies Hearing Impairment: Denies Cancer: No Psychosocial: Yes Depression Integumentary: No Blood Disorders: No Family Medical History Reviewed Nursing Family Hx Atrial fibrillation 19 MOTHER, Onset:Unknown Cancer of mouth 19 FATHER, Onset:Unknown Headache disorder 19 MOTHER, Onset:Unknown No Family History of: AIDS Abdominal aortic aneurysm [place]'s disease Alcoholism Alzheimer's disease Aphasia Arthritis Asthma Cardiovascular disease Cataracts Colon cancer Completed stroke Congenital disease Congenital heart disease Coronary thrombosis Cystic fibrosis Deafness or hearing loss Dementia Diabetes mellitus Drug abuse Dysphasia Fibrocystic disease of breast Gastroenteritis Glaucoma Hypercholesterolemia Hypertension Infertility Kidney disease Myocardial infarction Neoplasm Not obtainable due to adoption Osteoporosis Parkinson's disease Prostate cancer Psychosocial problem Respiratory disorder Seizure disorder Severe allergy Thyroid disease Tuberculosis Visual disorder Physical Exam Vital Signs Vital Signs - First Documented 05/01/18 15:49 Temp 98.4 Pulse 77 Resp 20 B/P (MAP) 105/72 (83) Pulse Ox 99 O2 Delivery Room Air Capillary Refill : General Appearance: WD/WN, no apparent distress Skin Problem Location: upper extremities (left upper arm) Skin Problem Character: erythema, thickening, warm, other (the bite is on the left upper inner arm. There is an area that is an 11 x 11 in diameter that is erythematous and indurated. In the middle of that there is a 5 x 5 cm in diameter area of darkened purplish-colored skin. There is no draining and no open areas to the wound.) Progress/Results/Core Measures Results/Orders Lab Results Laboratory Tests Test 05/01/18 16:20 Range/Units White Blood Count 5.8 4.3-11.0 10^3/uL Red Blood Count 4.01 L 4.35-5.85 10^6/uL Hemoglobin 12.5 11.5-16.0 G/DL Hematocrit 36 35-52 % Mean Corpuscular Volume 90 80-99 FL Mean Corpuscular Hemoglobin 31 25-34 PG Mean Corpuscular Hemoglobin Concent 35 32-36 G/DL Red Cell Distribution Width 13.0 10.0-14.5 % Platelet Count 254 130-400 10^3/uL Mean Platelet Volume 10.6 H 7.4-10.4 FL Neutrophils (%) (Auto) 58 42-75 % Lymphocytes (%) (Auto) 28 12-44 % Monocytes (%) (Auto) 10 0-12 % Eosinophils (%) (Auto) 5 0-10 % Basophils (%) (Auto) 0 0-10 % Neutrophils # (Auto) 3.3 1.8-7.8 X 10^3 Lymphocytes # (Auto) 1.6 1.0-4.0 X 10^3 Monocytes # (Auto) 0.6 0.0-1.0 X 10^3 Eosinophils # (Auto) 0.3 0.0-0.3 10^3/uL Basophils # (Auto) 0.0 0.0-0.1 10^3/uL Sodium Level 136 135-145 MMOL/L Potassium Level 4.1 3.6-5.0 MMOL/L Chloride Level 101 98-107 MMOL/L Carbon Dioxide Level 28 21-32 MMOL/L Anion Gap 7 5-14 MMOL/L Blood Urea Nitrogen 13 7-18 MG/DL Creatinine 0.75 0.60-1.30 MG/DL Estimat Glomerular Filtration Rate > 60 BUN/Creatinine Ratio 17 Glucose Level 85 70-105 MG/DL Lactic Acid Level 0.84 0.50-2.00 MMOL/L Calcium Level 9.4 8.5-10.1 MG/DL Total Bilirubin 0.5 0.1-1.0 MG/DL Aspartate Amino Transf (AST/SGOT) 107 H 5-34 U/L Alanine Aminotransferase (ALT/SGPT) 108 H 0-55 U/L Alkaline Phosphatase 146 H 40-136 U/L Total Protein 6.8 6.4-8.2 GM/DL Albumin 3.8 3.2-4.5 GM/DL My Orders Orders - BERNOT,EVERT Fentanyl Injection (Sublimaze Injection (05/01/18 16:30) Cbc With Automated Diff (05/01/18 16:20) Comprehensive Metabolic Panel (05/01/18 16:20) Blood Culture (05/01/18 16:20) Saline Lock/Iv-Start (05/01/18 16:20) Ondansetron Injection (Zofran Injectio (05/01/18 16:30) Lactic Acid Analyzer (05/01/18 16:20) Medications Given in ED Current Medications Medications Dose Ordered Sig/Tiana Route Start Time Stop Time Status Last Admin Dose Admin Fentanyl Citrate 50 mcg ONCE ONCE IVP 05/01/18 16:30 05/01/18 16:31 DC 05/01/18 16:31 50 MCG Ondansetron HCl 4 mg PRN PRN IV 05/01/18 16:30 05/01/18 16:33 DC 05/01/18 16:28 4 MG Vital Signs/I&O 05/01/18 05/01/18 15:49 17:30 Temp 98.4 98.6 Pulse 77 72 Resp 20 18 B/P (MAP) 105/72 (83) 108/76 Pulse Ox 99 100 O2 Delivery Room Air Room Air Progress Progress Note : Time: 17:21 Progress Note Patient discussed the lab findings the patient. Due to her elevated liver enzymes I am stopping the Augmentin and starting her on clindamycin as this does not have a side effect of hepatitis. The patient agrees to follow up with Dr. Zacarias regarding the elevated liver enzymes. I am referring the patient and care for treatment of the spider bite. I am also sending her a prescription for Vicoprofen. Departure Impression Primary Impression: Spider bite wound Disposition: 01 HOME, SELF-CARE Condition: Stable/Unchanged Departure-Patient Inst. Decision time for Depature: 17:15 Referrals: BLANQUITA DUENAS MD, FLOYD R MD (PCP/Family) Primary Care Physician Patient Instructions: Spider Bites Add. Discharge Instructions: Take medications as directed. Stop taking the Augmentin. Follow-up with Dr. Benites within 1 week for recheck regarding your elevated liver enzymes. Follow- up with [facility] wound care and Dr. Duenas within 1 week for recheck. Call first thing Thursday morning for appointment times. Return back to the emergency room for any worsening pain, redness, drainage or any other concerns as needed. Scripts Hydrocodone/Ibuprofen (Hydrocodone-Ibuprofen 5-200 mg) 1 Each Tablet 1 EACH PO Q6H, #20 TAB Prov: EVERT HER 05/01/18 Clindamycin HCl (Clindamycin HCl) 300 Mg Capsule 300 MG PO Q6H for 7 Days, #28 CAP Prov: EVERT HER 05/01/18 Copy Copies To 1: ALFREDO FRANCES MD Copies To 2: BLANQUITA DUENAS MD, TRAVIS May 01, 2018 16:19
[2018-05-01] MEDS ORDERED: fentaNYL INJECTION 100 MCG/2 ML AMP IVP ONE (16:30)
[2018-05-01] MEDS ORDERED: ONDANSETRON 4 MG/2 ML (SDV) Z0FRAN IV PRN (16:30)
[2018-05-01 16:31] LABS: BASOPHILS % (AUTO) 0 % (0-10); EOSINOPHILS # (AUTO) 0.3 10^3/uL (0.0-0.3); EOSINOPHILS % (AUTO) 5 % (0-10); HEMATOCRIT 36 % (35-52); HEMOGLOBIN 12.5 G/DL (11.5-16.0); LYMPHOCYTES # (AUTO) 1.6 X 10^3 (1.0-4.0); LYMPHOCYTES % (AUTO) 28 % (12-44); MEAN CORPUSCULAR HEMOGLOBIN 31 PG (25-34); MEAN CORPUSCULAR HGB CONC 35 G/DL (32-36); MEAN CORPUSCULAR VOLUME 90 FL (80-99); MEAN PLATELET VOLUME 10.6 FL (7.4-10.4); MONOCYTES # (AUTO) 0.6 X 10^3 (0.0-1.0); MONOCYTES % (AUTO) 10 % (0-12); NEUTROPHILS # (AUTO) 3.3 X 10^3 (1.8-7.8); NEUTROPHILS % (AUTO) 58 % (42-75); PLATELET COUNT 254 10^3/uL (130-400); RED BLOOD COUNT 4.01 10^6/uL (4.35-5.85); WHITE BLOOD COUNT 5.8 10^3/uL (4.3-11.0)
[2018-05-01 16:50] LABS: ALANINE AMINOTRANSFERASE 108 U/L (0-55); ALBUMIN 3.8 GM/DL (3.2-4.5); ALKALINE PHOSPHATASE 146 U/L (40-136); BILIRUBIN,TOTAL 0.5 MG/DL (0.1-1.0); BUN/CREATININE RATIO 17; CALCIUM 9.4 MG/DL (8.5-10.1); CARBON DIOXIDE 28 MMOL/L (21-32); CHLORIDE 101 MMOL/L (98-107); CREATININE SERUM 0.75 MG/DL (0.60-1.30); GFR ESTIMATED > 60; GLUCOSE 85 MG/DL (70-105); POTASSIUM 4.1 MMOL/L (3.6-5.0); SODIUM 136 MMOL/L (135-145); TOTAL PROTEIN 6.8 GM/DL (6.4-8.2)
[2018-05-01] MEDS ORDERED: CLIN300C11 PO (17:20)
[2018-05-01] MEDS ORDERED: HYDR-3990 PO (17:20)
[2018-05-01 17:30] VITALS: BP 108/76
== END 2018-05-01 17:30 | disposition home or self-care (01) ==
LOC: EDUNIT# 15:45 → ER 15:46
DX: S40.862A Insect bite (nonvenomous) of left upper arm, initial encounter (principal); I10 Essential (primary) hypertension; G43.909 Migraine, unspecified, not intractable, without status migrainosus; K21.9 Gastro-esophageal reflux disease without esophagitis; F32.9 Major depressive disorder, single episode, unspecified; Z79.01 Long term (current) use of anticoagulants; Z87.59 Personal history of other complications of pregnancy, childbirth and the puerperium; Z90.710 Acquired absence of both cervix and uterus; Z82.49 Family history of ischemic heart disease and other diseases of the circulatory system; Z90.89 Acquired absence of other organs; W57.XXXA Bitten or stung by nonvenomous insect and other nonvenomous arthropods, initial encounter
CPT/HCPCS: 36415; 80053; 83605; 85025; 87040; 96374; 96375

== ENCOUNTER 2020-12-06 18:42 | Emergency (ER) | payer SELFPAY ==
[~2020-12-06] VITALS: Ht 178 cm; Wt 99.0 kg
[~2020-12-06 18:42] MED LIST changes: +ACHYD1T PO; +CLIN300C12 PO; -HYDR-3820 PO; +HYDR-3990 PO; -ROPI2TAB4 PO; +ROPI2TAB6 PO
[2020-12-06 19:47] LABS: BASOPHILS # (AUTO) 0.1 10^3/uL (0.0-0.1); BASOPHILS % (AUTO) 1 % (0-10); EOSINOPHILS # (AUTO) 0.3 10^3/uL (0.0-0.3); EOSINOPHILS % (AUTO) 5 % (0-10); HEMATOCRIT 40 % (35-52); HEMOGLOBIN 13.6 g/dL (11.5-16.0); LYMPHOCYTES # (AUTO) 2.3 10^3/uL (1.0-4.0); LYMPHOCYTES % (AUTO) 44 % (12-44); MEAN CORPUSCULAR HEMOGLOBIN 30 pg (25-34); MEAN CORPUSCULAR HGB CONC 34 g/dL (32-36); MEAN CORPUSCULAR VOLUME 88 fL (80-99); MEAN PLATELET VOLUME 9.8 fL (9.0-12.2); MONOCYTES # (AUTO) 0.5 10^3/uL (0.0-1.0); MONOCYTES % (AUTO) 11 % (0-12); NEUTROPHILS % (AUTO) 39 % (42-75); PLATELET COUNT 237 10^3/uL (130-400); WHITE BLOOD COUNT 5.1 10^3/uL (4.3-11.0)
--- NOTE | 2020-12-06 19:57 | ED Cough/URI ---
General Chief Complaint: Respiratory Problems Stated Complaint: FROM [facility] - SOB / SWELLING / FEVER Nursing Triage Note: reports dx with pneumonia 4 weeks ago et. continued soa. reports soa worse x2 days. Sepsis Screen: No Definite Risk History of Present Illness Date Seen by Provider: Dec 06, 2020 Time Seen by Provider: 19:20 Initial Comments 50-year-old female presents for shortness of air that is been present for approximately 4 weeks, being diagnosed with pneumonia and treated with an antibiotic and steroids. Her symptoms have been worse for the last 2 weeks. She has been tested for Covid twice in the past the last time being at least 1 month ago. She has been using an inhaler but has not noticed any improvement and has not used it since early this morning. She reports occasional fevers to 100.2 degrees. She was seen at [facility] and referred here. 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 Her SaO2 is 98% on RA after walking to the exam room. She smokes cigarettes, approximately 1/2 to 1 pack a day. Lately she has only been smoking 7 a day. Timing/Duration: getting worse, intermittent Severity/Quality: mild, dry cough Prior Episodes/Possible Cause: occasional episodes Associated Symptoms: chest pain/soreness (Related to the shortness of breath.), cough, fever/chills, nasal congestion, shortness of breath Allergies and Home Medications Allergies Coded Allergies: NKANo Known Allergies (Verified Allergy, Unknown, 02/17/06) Home Medications Alprazolam 0.5 Mg Tablet, 0.5 MG PO QID PRN for ANXIETY, (Reported) Amitriptyline HCl 50 Mg Tablet, 50 MG PO HS, (Reported) Amoxicillin/Potassium Clav 1 Each Tablet, 1 EACH PO BID Prescribed by: VIJAYA MANZO on 12/06/202120 Apixaban 5 Mg Tablet, 10 MG PO BID Prescribed by: WILLIAM NAVAS on 04/10/171050 Apixaban 5 Mg Tablet, 5 MG PO BID Prescribed by: WILLIAM NAVAS on 04/10/171050 Azithromycin 250 Mg Tablet, 250 MG PO UD TAKE 2 TABLETS ON DAY ONE THEN TAKE 1 TABLET DAILY FOR FOUR MORE DAYS Prescribed by: VIJAYA MANZO on 12/06/202120 Clindamycin HCl 300 Mg Capsule, 300 MG PO Q6H Prescribed by: EVERT HER on 05/01/181719 Fluticasone Propionate 1 Ea Aero, 2 PUFF IH BID Prescribed by: VIJAYA MANZO on 12/06/202120 Hydrocodone Bit/Acetaminophen 1 Each Tablet, 1 TAB PO Q6H PRN for PAIN-MODERATE, (Reported) Hydrocodone/Ibuprofen 1 Each Tablet, 1 EACH PO Q6H Prescribed by: EVERT HER on 05/01/181719 Melatonin 10 Mg Capsule, 10 MG PO HS, (Reported) Metoprolol Tartrate 25 Mg Tablet, 25 MG PO DAILY, (Reported) Pantoprazole Sodium 40 Mg Tablet.dr, 40 MG PO DAILY, (Reported) Ropinirole HCl 2 Mg Tablet, 2 MG PO HS, (Reported) Sumatriptan Succinate 25 Mg Tablet, 25 MG PO UD PRN for HEADACHE, (Reported) MAY REPEAT 1 TIME 2 HOURS LATER Patient Home Medication List Home Medication List Reviewed: Yes Review of Systems Review of Systems Constitutional: see HPI, fever, malaise, weakness EENTM: see HPI, no symptoms reported Respiratory: see HPI, cough, dyspnea on exertion; No phlegm; short of breath; No wheezing Cardiovascular: no symptoms reported, see HPI Gastrointestinal: no symptoms reported, see HPI Genitourinary: no symptoms reported, see HPI Musculoskeletal: no symptoms reported, see HPI All Other Systems Reviewed Negative Unless Noted: Yes Past Utavhwe-Kkvdkw-Noycgz Hx Past Med/Social Hx: Reviewed Nursing Past Med/Soc Hx Patient Social History Alcohol Use: Denies Use Number of Drinks Today: FF Alcohol Beverage of Choice: Vodka Smoking Status: Former Smoker Type Used: Cigarettes Recent Infectious Disease Expo: No Recent Hopitalizations: No Immunizations Up To Date Tetanus Booster (TDap): Unknown Seasonal Allergies Seasonal Allergies: No Past Medical History Surgeries: Yes (ceserean section x 2, LEFT KNEE SCOPE, THROAT) Section, Hysterectomy, Orthopedic, Tonsillectomy Respiratory: Yes Pneumonia, Pulmonary Embolism Cardiac: Yes Deep Vein Thrombosis, Hypertension Neurological: Yes Headaches /Migraines : No Reproductive Disorders: No 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 Disorders: Denies [employer] History: Hysterectomy, 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 Sexually Transmitted Disease: No HIV/AIDS: No Genitourinary: No Gastrointestinal: Yes Gastroesophageal Reflux Musculoskeletal: Yes Arthritis Endocrine: No HEENT: No Loss of Vision: Denies Hearing Impairment: Denies Cancer: No Psychosocial: Yes Anxiety, Depression Integumentary: No Blood Disorders: No Family Medical History Atrial fibrillation 19 MOTHER, Onset:Unknown Cancer of mouth 19 FATHER, Onset:Unknown Headache disorder 19 MOTHER, Onset:Unknown No Family History of: AIDS Abdominal aortic aneurysm [place]'s disease Alcoholism Alzheimer's disease Aphasia Arthritis Asthma Cardiovascular disease Cataracts Colon cancer Completed stroke Congenital disease Congenital heart disease Coronary thrombosis Cystic fibrosis Deafness or hearing loss Dementia Diabetes mellitus Drug abuse Dysphasia Fibrocystic disease of breast Gastroenteritis Glaucoma Hypercholesterolemia Hypertension Infertility Kidney disease Myocardial infarction Neoplasm Not obtainable due to adoption Osteoporosis Parkinson's disease Prostate cancer Psychosocial problem Respiratory disorder Seizure disorder Severe allergy Thyroid disease Tuberculosis Visual disorder Physical Exam Vital Signs - First Documented 12/06/20 19:16 Temp 36.9 Pulse 79 Resp 18 B/P (MAP) 133/89 (104) Pulse Ox 98 O2 Delivery Room Air Capillary Refill : Less Than 3 Seconds Height: 5'10.00" Weight: 220lbs. 0.0oz. 99.705152id; 31.00 BMI Method:Stated General Appearance: WD/WN, no apparent distress Eyes: Bilateral Eye Normal Inspection, Bilateral Eye PERRL HEENT: PERRL/EOMI, normal ENT inspection, TMs normal, pharynx normal Neck: non-tender, full range of motion, supple, normal inspection Respiratory: chest non-tender, lungs clear, normal breath sounds, no respiratory distress, no accessory muscle use Cardiovascular: normal peripheral pulses, regular rate, rhythm Gastrointestinal: normal bowel sounds, non tender, soft Extremities: normal range of motion, non-tender, normal inspection, normal capillary refill; No calf tenderness; pedal edema (1+) Neurologic/Psychiatric: no motor/sensory deficits, alert, normal mood/affect, oriented x 3 Skin: normal color, warm/dry Progress/Results/Core Measures Suspected Sepsis Recent Fever Within 48 Hours: No Infection Criteria Present: None New/Unexplained Altered Menta: No Sepsis Screen: No Definite Risk SIRS Temperature: Pulse: 79 Respiratory Rate: 18 Laboratory Tests 12/06/20 19:37: White Blood Count 5.1 Blood Pressure 133 /89 Mean: 104 Laboratory Tests 12/06/20 19:37: Creatinine 0.89, INR Comment 1.0, Platelet Count 237, Total Bilirubin 0.3 Results/Orders Lab Results Laboratory Tests Test 12/06/20 19:26 12/06/20 19:37 Range/Units Coronavirus 2019 (GORGE) Negative Negative White Blood Count 5.1 4.3-11.0 10^3/uL Red Blood Count 4.60 3.80-5.11 10^6/uL Hemoglobin 13.6 11.5-16.0 g/dL Hematocrit 40 35-52 % Mean Corpuscular Volume 88 80-99 fL Mean Corpuscular Hemoglobin 30 25-34 pg Mean Corpuscular Hemoglobin Concent 34 32-36 g/dL Red Cell Distribution Width 12.7 10.0-14.5 % Platelet Count 237 130-400 10^3/uL Mean Platelet Volume 9.8 9.0-12.2 fL Immature Granulocyte % (Auto) 0 % Neutrophils (%) (Auto) 39 L 42-75 % Lymphocytes (%) (Auto) 44 12-44 % Monocytes (%) (Auto) 11 0-12 % Eosinophils (%) (Auto) 5 0-10 % Basophils (%) (Auto) 1 0-10 % Neutrophils # (Auto) 2.0 1.8-7.8 10^3/uL Lymphocytes # (Auto) 2.3 1.0-4.0 10^3/uL Monocytes # (Auto) 0.5 0.0-1.0 10^3/uL Eosinophils # (Auto) 0.3 0.0-0.3 10^3/uL Basophils # (Auto) 0.1 0.0-0.1 10^3/uL Immature Granulocyte # (Auto) 0.0 0.0-0.1 10^3/uL Erythrocyte Sedimentation Rate 6 0-20 MM/HR Prothrombin Time 13.4 12.2-14.7 SEC INR Comment 1.0 0.8-1.4 Activated Partial Thromboplast Time 30 24-35 SEC D-Dimer 1.52 H 0.00-0.49 UG/ML Sodium Level 137 135-145 MMOL/L Potassium Level 4.3 3.6-5.0 MMOL/L Chloride Level 104 98-107 MMOL/L Carbon Dioxide Level 24 21-32 MMOL/L Anion Gap 9 5-14 MMOL/L Blood Urea Nitrogen 16 7-18 MG/DL Creatinine 0.89 0.60-1.30 MG/DL Estimat Glomerular Filtration Rate > 60 BUN/Creatinine Ratio 18 Glucose Level 95 70-105 MG/DL Calcium Level 8.9 8.5-10.1 MG/DL Corrected Calcium 8.9 8.5-10.1 MG/DL Total Bilirubin 0.3 0.1-1.0 MG/DL Aspartate Amino Transf (AST/SGOT) 12 5-34 U/L Alanine Aminotransferase (ALT/SGPT) 12 0-55 U/L Alkaline Phosphatase 68 40-136 U/L Lactate Dehydrogenase 186 125-220 U/L Troponin I < 0.028 <0.028 NG/ML C-Reactive Protein High Sensitivity 0.34 0.00-0.50 MG/DL Total Protein 7.1 6.4-8.2 GM/DL Albumin 4.0 3.2-4.5 GM/DL Procalcitonin 0.01 <0.10 NG/ML Micro Results Microbiology 12/06/20 Influenza Types A,B Antigen (ANAYA) - Final, Complete My Orders Orders - VIJAYA MANZO Cbc With Automated Diff (12/06/20 19:17) Comprehensive Metabolic Panel (12/06/20 19:17) Fibrin Degradation Products (12/06/20 19:17) Procalcitonin (Pct) (12/06/20 19:17) Hs C Reactive Protein (12/06/20 19:17) Erythrocyte Sedimentation Rate (12/06/20 19:17) LDH (12/06/20 19:17) Influenza A And B Antigens (12/06/20 19:17) Covid 19 Inhouse Test (12/06/20 19:17) Protime With Inr (12/06/20 19:45) Partial Thromboplastin Time (12/06/20 19:45) Troponin I (12/06/20 19:45) Chest 1 View, Ap/Pa Only (12/06/20 19:45) Ct Angio Chest W (12/06/20 19:45) Ekg Tracing (12/06/20 19:50) Iohexol Injection (Omnipaque 350 Mg/Ml 1 (12/06/20 20:15) Received Contrast (Hold Metformin- Contr (12/06/20 20:15) Sodium Chloride Flush (Catheter Flush Sy (12/06/20 20:15) Ns (Ivpb) (Sodium Chloride 0.9% Ivpb Bag (12/06/20 20:15) Covid-19 Igg Only So (12/06/20 20:15) Ceftriaxone For Iv Use (Rocephin For I (12/06/20 21:15) Medications Given in ED Current Medications Medications Dose Ordered Sig/Tiana Route Start Time Stop Time Status Last Admin Dose Admin Ceftriaxone Sodium 2000 mg/ Sterile Water 20 ml @ 240 mls/hr ONCE ONCE IV 12/06/20 21:15 12/06/20 21:19 DC 12/06/20 21:18 240 MLS/HR Iohexol 100 ml ONCE ONCE IV 12/06/20 20:15 12/06/20 20:16 DC 12/06/20 20:39 82 ML Sodium Chloride 10 ml NEEDED PRN IV 12/06/20 20:15 12/06/20 21:30 DC 12/06/20 20:40 10 ML Sodium Chloride 100 ml ONCE ONCE IV 12/06/20 20:15 12/06/20 20:16 DC 12/06/20 20:40 80 ML Vital Signs/I&O 12/06/20 19:16 Temp 36.9 Pulse 79 Resp 18 B/P (MAP) 133/89 (104) Pulse Ox 98 O2 Delivery Room Air Capillary Refill : Less Than 3 Seconds Blood Pressure Mean: 104 Progress Note : Time: 19:20 Progress Note Patient seen and evaluated, will obtain labs, EKG, chest x-ray and CT angio. Patient's vital signs are stable and she is afebrile. Her SaO2 has remained 96 to 98% on room air. No supplemental oxygen has been given. 1999 patient has remained stable, waiting on the CT angio. No requests time. Labs have been essentially normal. 2029 rapid Covid and influenza both negative. Chest x-ray normal. 2114 CT angio shows bilateral early pneumonia upper lobes. No PEs. Will give Rocephin 2 g IV. Discharge instructions and return precautions reviewed with the patient. All questions answered. ECG Initial ECG Impression Date: Dec 06, 2020 Initial ECG Impression Time: 19:32 Initial ECG Rate: 67 Initial ECG Rhythm: Normal Sinus Initial ECG Intervals: Normal Initial ECG Intervals DE 172, QRSD 88, QT 397, QTc 419. [place] P 1, QRS 41, T 27. Initial ECG Impression: Normal Initial ECG Comparisson: No Previous ECG Available Diagnostic Imaging Diagonstic Imaging: Xray Plain Films/CT/US/NM/MRI: chest Comments NAME: TIN CORRALES [facility] REC#: [id number] PT STATUS: REG ER : 1970 PHYSICIAN: VIJAYA MANZO ADMIT DATE: 12/06/20/ER Draft Date of Exam:12/06/20 CHEST 1 VIEW, AP/PA ONLY INDICATION: Shortness of breath. EXAMINATION: Portable chest at 8:42 p.m. FINDINGS: Heart size and pulmonary vascularity are normal. Lungs are clear. There are no effusions or pneumothoraces. IMPRESSION: Negative chest. Dictated on workstation # [id number] Dict: 12/06/202042 Trans: 12/06/202045 PJE [id number] Interpreted by: HARDY GALINDO MD Electronically signed by: Manuel Imaging: CT Plain Films/CT/US/NM/MRI: chest Comments NAME: TIN CORRALES [facility] REC#: [id number] PT STATUS: REG ER : 1970 PHYSICIAN: VIJAYA MANZO ADMIT DATE: 12/06/20/ER Signed Date of Exam:12/06/20 CT ANGIO CHEST W PROCEDURE: CT angiography of the chest with contrast. TECHNIQUE: Multiple contiguous axial images were obtained through the chest after uneventful bolus administration of intravenous contrast. 3D reconstructed CTA MIP acquisitions were also performed. Auto Exposure Controls were utilized during the CT exam to meet ALARA standards for radiation dose reduction. INDICATION: Worsening shortness of breath. FINDINGS: There are some patchy alveolar infiltrates in both upper lobes. There is no effusion or pneumothorax. There are no pulmonary emboli. There is no right ventricular strain. There is no hilar or mediastinal lymphadenopathy. IMPRESSION: Patchy upper lobe infiltrates consistent with pneumonia. Dictated by: Dictated on workstation # [id number] Dict: 12/06/202043 Trans: 12/06/202101 PJE [id number] Interpreted by: HARDY GALINDO MD Electronically signed by: HARDY GALINDO MD 12/06/202101 Departure Impression Primary Impression: Pneumonia Qualified Codes: J18.9 - Pneumonia, unspecified organism Disposition: HOME, SELF-CARE Condition: Improved Departure-Patient Inst. Decision time for Depature: 21:15 Referrals: ALFREDO FRANCES MD (PCP/Family) Primary Care Physician Patient Instructions: Community-Acquired Pneumonia, Adult (DC) Add. Discharge Instructions: Increase water intake, 16 ounces every 2 hours while awake. Continue to take your normal home medications. Take antibiotics as prescribed. Use the Flovent inhaler 2 puffs twice daily for the next 2 weeks. Continue to use your albuterol inhaler 2 to 4 puffs every 4 hours as needed for shortness of breath. Eat yogurt, 1 cup daily. Follow-up with your primary care provider early next week. Alternate between Tylenol 650 mg and ibuprofen 600 mg every 4 hours as needed for pain or fever. Return to the emergency department for new, urgent healthcare needs. All discharge instructions reviewed with patient and/or family. Voiced understanding. Scripts Amoxicillin/Potassium Clav (Augmentin 875-125 Tablet) 1 Each Tablet 1 EACH PO BID, #14 TAB 0 Refills Prov: VIJAYA MANZO 12/06/20 Azithromycin (Azithromycin) 250 Mg Tablet 250 MG PO UD, #6 TAB 0 Refills TAKE 2 TABLETS ON DAY ONE THEN TAKE 1 TABLET DAILY FOR FOUR MORE DAYS Prov: VIJAYA MANZO 12/06/20 Fluticasone Propionate (Flovent Hfa 220 mcg) 1 Ea Aero 2 PUFF IH BID, #1 EA 0 Refills Prov: VIJAYA MANZO 12/06/20 Work/School Note: Work Release Form Date Seen in the Emergency Department: Dec 06, 2020 Return to Work: Dec 10, 2020 Restrictions: No Restrictions VIJAYA MANZO Dec 06, 2020 19:57
[2020-12-06 20:04] LABS: CHLORIDE 104 MMOL/L (98-107); POTASSIUM 4.3 MMOL/L (3.6-5.0); PROTHROMBIN TIME PATIENT 13.4 SEC (12.2-14.7); SODIUM 137 MMOL/L (135-145)
[2020-12-06 20:05] LABS: CALCIUM 8.9 MG/DL (8.5-10.1)
[2020-12-06 20:06] LABS: GLUCOSE 95 MG/DL (70-105); TOTAL PROTEIN 7.1 GM/DL (6.4-8.2)
[2020-12-06 20:07] LABS: CARBON DIOXIDE 24 MMOL/L (21-32)
[2020-12-06 20:08] LABS: BILIRUBIN,TOTAL 0.3 MG/DL (0.1-1.0)
[2020-12-06 20:10] LABS: ALKALINE PHOSPHATASE 68 U/L (40-136); CREATININE SERUM 0.89 MG/DL (0.60-1.30); GFR ESTIMATED > 60
[2020-12-06 20:11] LABS: BUN/CREATININE RATIO 18
[2020-12-06 20:13] LABS: ALANINE AMINOTRANSFERASE 12 U/L (0-55)
[2020-12-06] MEDS ORDERED: HOLD METFORMIN - RECEIVED CONTRAST 20 ML VIAL IV SCH (20:15)
[2020-12-06] MEDS ORDERED: NS 100 ML (IVPB) BAG IV ONE (20:15)
[2020-12-06] MEDS ORDERED: IOHEXOL 350 MG/ML 100 ML (OMNIPAQUE 350) VIAL IV ONE (20:15)
[2020-12-06] MEDS ORDERED: CATHETER FLUSH 10 ML SYR IV PRN (20:15)
--- NOTE | 2020-12-06 20:46 | Diagnostic Imaging Report ---
INDICATION: Shortness of breath. EXAMINATION: Portable chest at 8:42 p.m. FINDINGS: Heart size and pulmonary vascularity are normal. Lungs are clear. There are no effusions or pneumothoraces. IMPRESSION: Negative chest. Dictated by: Dictated on workstation # [id number]
[2020-12-06 20:49] LABS: ERYTHROCYTE SEDIMENTATION RATE 6 MM/HR (0-20)
--- NOTE | 2020-12-06 20:51 | Diagnostic Imaging Report ---
PROCEDURE: CT angiography of the chest with contrast. TECHNIQUE: Multiple contiguous axial images were obtained through the chest after uneventful bolus administration of intravenous contrast. 3D reconstructed CTA MIP acquisitions were also performed. Auto Exposure Controls were utilized during the CT exam to meet ALARA standards for radiation dose reduction. INDICATION: Worsening shortness of breath. FINDINGS: There are some patchy alveolar infiltrates in both upper lobes. There is no effusion or pneumothorax. There are no pulmonary emboli. There is no right ventricular strain. There is no hilar or mediastinal lymphadenopathy. IMPRESSION: Patchy upper lobe infiltrates consistent with pneumonia. Dictated by: Dictated on workstation # [id number]
[2020-12-06] MEDS ORDERED: cefTRIAXone FOR IV USE 2,000 MG in WATER (STERILE) FOR INJECTION 20 ML IV ONE (21:15)
[2020-12-06] MEDS ORDERED: AMOX-358 PO (21:21)
[2020-12-06] MEDS ORDERED: FLT22013 IH (21:21)
[2020-12-06] MEDS ORDERED: AZIT250T12 PO (21:21)
[2020-12-06 21:26] VITALS: BP 115/85
== END 2020-12-06 21:30 | disposition home or self-care (01) ==
LOC: EDUNIT# 18:42 → ER 18:45
DX: J18.9 Pneumonia, unspecified organism (principal); I10 Essential (primary) hypertension; F41.9 Anxiety disorder, unspecified; F32.9 Major depressive disorder, single episode, unspecified; G43.909 Migraine, unspecified, not intractable, without status migrainosus; K21.9 Gastro-esophageal reflux disease without esophagitis; F17.210 Nicotine dependence, cigarettes, uncomplicated; Z86.711 Personal history of pulmonary embolism; Z86.718 Personal history of other venous thrombosis and embolism; Z20.822 Contact with and (suspected) exposure to COVID-19; Z79.01 Long term (current) use of anticoagulants; Z79.82 Long term (current) use of aspirin
CPT/HCPCS: 71045; 71275; 80053; 83615; 84145; 84484; 85025; 85379; 85610; 85652; 85730; 86141; 86769; 87804; 93005; 93041; 99284; U0002; 36415; 87635

== ENCOUNTER 2021-10-25 11:34 | Emergency (ER) | payer SELFPAY ==
[~2021-10-25] VITALS: Ht 177.8 cm; Wt 113.4 kg
[~2021-10-25 11:34] MED LIST changes: +AMOX-358 PO; +AZIT250T12 PO; +CLIN-144 PO; -CLIN300C12 PO; +FLT22013 IH
--- NOTE | 2021-10-25 13:14 | ED Cough/URI ---
General Chief Complaint: COVID19 Suspect/Confirmed Stated Complaint: FEVER,SOB,CHILLS,BODY ACHES, LOW 02 Nursing Triage Note: PT AMB TO RM 9 WITH COMPLAINT OF BROOKS, CHILLS, NASAL CONGESTION. STATES HAD + HOME COVID TEST ON THURSDAY. WENT TO [facility] YESTERDAY DIAGNOSED WITH SINUS INFECTION AND HAD SEND OUT COVID PERFORMED. STATES O2 HAS BEEN LOW AT HOME, Source: patient Exam Limitations: no limitations History of Present Illness Date Seen by Provider: Oct 25, 2021 Time Seen by Provider: 12:48 Initial Comments Here with report of chills, headache, nasal congestion shortness of breath and having declining O2 saturations at home. She did do home COVID-19 test and that was positive. Seen yesterday at [facility] walk-in clinic and diagnosed with sinus infection and did have a send out Covid test performed. She is concerned about her oxygen and wanted to be rechecked. She also has persistent headache that does not seem to be getting better with ibuprofen. She states she cannot take Tylenol because it hurts her stomach. She is eating and drinking okay and in no distress currently. Timing/Duration: other (6 days ago (last Thursday).) Severity/Quality: mild, dry cough Prior Episodes/Possible Cause: occasional episodes Modifying Factors: Improves With Rest Associated Symptoms: cough, fever/chills, headache, muscle aches, nasal congestion, shortness of breath, sore throat Allergies and Home Medications Allergies Coded Allergies: NKANo Known Allergies (Verified Allergy, Unknown, 02/17/06) Patient Home Medication List Home Medication List Reviewed: Yes Alprazolam (Xanax) 0.5 Mg Tablet, 0.5 MG PO QID PRN for ANXIETY, (Reported) Entered as Reported by: RICHIE KENNEDY on 04/10/17 0845 Amitriptyline HCl (Amitriptyline HCl) 50 Mg Tablet, 50 MG PO HS, (Reported) Entered as Reported by: BECKY HUFF on 04/09/17 1605 Amoxicillin/Potassium Clav (Augmentin 875-125 Tablet) 1 Each Tablet, 1 EACH PO BID Prescribed by: VIJAYA MANZO on 12/06/20 2121 Apixaban (Eliquis) 5 Mg Tablet, 10 MG PO BID Prescribed by: WILLIAM NAVAS on 04/10/17 1051 Apixaban (Eliquis) 5 Mg Tablet, 5 MG PO BID Prescribed by: WILLIAM NAVAS on 04/10/17 1051 Azithromycin (Azithromycin) 250 Mg Tablet, 250 MG PO UD Prescribed by: VIJAYA MANZO on 12/06/202120 Clindamycin HCl (Clindamycin HCl) 300 Mg Capsule, 300 MG PO Q6H Prescribed by: EVERT HER on 05/01/18 172 Fluticasone Propionate (Flovent Hfa 220 mcg) 1 Ea Aero, 2 PUFF IH BID Prescribed by: VIJAYA MANZO on 12/06/202120 Hydrocodone Bit/Acetaminophen (HYDROcodone/APAP 10/325 TABLET) 1 Each Tablet, 1 TAB PO Q6H PRN for PAIN-MODERATE, (Reported) Entered as Reported by: BECKY HUFF on 04/09/17 160 Hydrocodone/Ibuprofen (Hydrocodone-Ibuprofen 5-200 mg) 1 Each Tablet, 1 EACH PO Q6H Prescribed by: EVERT HER on 05/01/181719 Melatonin (Melatonin) 10 Mg Capsule, 10 MG PO HS, (Reported) Entered as Reported by: BECKY HUFF on 04/09/17 1605 Metoprolol Tartrate (Metoprolol Tartrate) 25 Mg Tablet, 25 MG PO DAILY, (Reported) Entered as Reported by: JOYA MURDOCK on 01/24/15 1223 Pantoprazole Sodium (Protonix) 40 Mg Tablet.dr, 40 MG PO DAILY, (Reported) Entered as Reported by: BECKY HUFF on 04/09/17 1605 Ropinirole HCl (Requip) 2 Mg Tablet, 2 MG PO HS, (Reported) Entered as Reported by: RICHIE KENNEDY on 04/10/17 0845 Sumatriptan Succinate (Sumatriptan Succinate) 25 Mg Tablet, 25 MG PO UD PRN for HEADACHE, (Reported) Entered as Reported by: JOYA MURDOCK on 01/24/15 1223 Review of Systems Review of Systems Constitutional: see HPI, malaise EENTM: see HPI Respiratory: see HPI Cardiovascular: no symptoms reported Gastrointestinal: No diarrhea, No nausea, No vomiting Genitourinary: no symptoms reported Musculoskeletal: muscle pain; No muscle weakness Skin: no symptoms reported All Other Systems Reviewed Negative Unless Noted: Yes Past Qtrsnkd-Kqosgc-Snisxg Hx Patient Social History Tobacco Use?: Yes Smoking Status: Current Someday Smoker Use of E-Cig and/or Vaping dev: No Substance use?: No Alcohol Use?: Yes Alcohol Frequency: Couple times a week Pt feels they are or have been: No Immunizations Up To Date Tetanus Booster (TDap): Unknown First/Initial COVID19 Vaccinat: FEBRUARY 2021 Second COVID19 Vaccination Chandu: MARCH 2021 COVID19 Vaccine Program Facilitator: MODERNA Seasonal Allergies Seasonal Allergies: No Past Medical History Surgeries: Yes (ceserean section x 2, LEFT KNEE SCOPE, THROAT) Section, Hysterectomy, Orthopedic, Tonsillectomy Respiratory: Yes Pneumonia, Pulmonary Embolism Cardiac: Yes Deep Vein Thrombosis, Hypertension Neurological: Yes Headaches /Migraines Reproductive Disorders: No 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, 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 Sexually Transmitted Disease: No HIV/AIDS: No Genitourinary: No Gastrointestinal: Yes Gastroesophageal Reflux Musculoskeletal: Yes Arthritis Endocrine: No HEENT: No Loss of Vision: Denies Hearing Impairment: Denies Cancer: No Psychosocial: Yes Anxiety, Depression Integumentary: No Blood Disorders: No Family Medical History Reviewed Nursing Family Hx Atrial fibrillation 19 MOTHER, Onset:Unknown Cancer of mouth 19 FATHER, Onset:Unknown Headache disorder 19 MOTHER, Onset:Unknown Physical Exam Vital Signs - First Documented 10/25/21 12:01 Temp 37.2 Pulse 58 Resp 13 B/P (MAP) 129/81 (97) Pulse Ox 96 O2 Delivery Room Air Capillary Refill : Less Than 3 Seconds Height: 5'10.00" Weight: 220lbs. 0.0oz. [id number]; 35.00 BMI Method:Stated General Appearance: WD/WN, no apparent distress, obese HEENT: PERRL/EOMI, pharynx normal Neck: full range of motion, supple Respiratory: lungs clear, normal breath sounds Cardiovascular: regular rate, rhythm, no murmur Gastrointestinal: non tender, soft Extremities: non-tender, normal inspection Neurologic/Psychiatric: alert, oriented x 3 Skin: normal color, warm/dry Progress/Results/Core Measures Suspected Sepsis SIRS Temperature: Pulse: 58 Respiratory Rate: 13 Blood Pressure 129 /81 Mean: 97 Results/Orders Lab Results Laboratory Tests Test 10/25/21 12:07 Range/Units My Orders Orders - HARDY DELGADILLO MD Chest 1 View, Ap/Pa Only (10/25/21 12:50) Vital Signs/I&O 10/25/21 12:01 Temp 37.2 Pulse 58 Resp 13 B/P (MAP) 129/81 (97) Pulse Ox 96 O2 Delivery Room Air Capillary Refill : Less Than 3 Seconds Blood Pressure Mean: 97 Progress Note : Progress Note Seen and evaluated. Chest x-ray ordered. O2 saturation 93 to 97% on room air. Monitor patient. 1448: Chest x-ray shows no acute findings. Discharged home with return precautions. Patient verbalized understanding instructions and agreement with plan. Diagnostic Imaging Diagonstic Imaging: Xray Plain Films/CT/US/NM/MRI: chest Comments [facility] [place], [place] NAME: TIN CORRALES [facility] REC#: [id number] PT STATUS: REG ER : 1970 PHYSICIAN: HARDY DELGADILLO MD ADMIT DATE: 10/25/21/ER Signed Date of Exam:10/25/21 CHEST 1 VIEW, AP/PA ONLY EXAMINATION: Chest, one view. HISTORY: COVID pos, SOA. COMPARISON: 12/06/2020. FINDINGS: Heart size and pulmonary vasculature are stable. The lungs are clear without consolidation, pleural effusion, or pneumothorax. The osseous structures are intact. IMPRESSION: 1. No acute radiographic abnormality in the chest. Dictated by: Dictated on workstation # [id number] Dict: 10/25/21 1331 Trans: 10/25/21 1404 [id number] Interpreted by: HAWA GALINDO DO Electronically signed by: HAWA GALINDO DO 10/25/21 1404 Departure Impression Primary Impression: Person under investigation for COVID-19 Disposition: HOME, SELF-CARE Condition: Stable Departure-Patient Inst. Decision time for Depature: 14:49 Referrals: NO,LOCAL PHYSICIAN (PCP/Family) Primary Care Physician Patient Instructions: COVID-19 (DC) Add. Discharge Instructions: All discharge instructions reviewed with patient and/or family. Voiced understanding. Drink plenty of fluids and get plenty of rest. You will need to remain isolated until test results are noted. If they are positive, follow direction of employee health. You may take ibuprofen 600 mg every 8 hours as needed for fever or pain. You may take Tylenol/acetaminophen 1000 mg every 8 hours as needed for fever or pain. Monitor your oxygen saturations while resting and return if your O2 saturation is 90% or less while resting. You may use Afrin nasal spray or the generic, 12-hour relief, 2 sprays to each nostril twice daily for 3 days only and then stop. Do not use more than 3 days. Return for worse pain, fever, vomiting, weakness, breathing problems or other concerns as needed. HARDY DELGADILLO MD Oct 25, 2021 13:14
--- NOTE | 2021-10-25 13:32 | Diagnostic Imaging Report ---
EXAMINATION: Chest, one view. HISTORY: COVID pos, SOA. COMPARISON: 12/06/2020. FINDINGS: Heart size and pulmonary vasculature are stable. The lungs are clear without consolidation, pleural effusion, or pneumothorax. The osseous structures are intact. IMPRESSION: 1. No acute radiographic abnormality in the chest. Dictated by: Dictated on workstation # [id number]
[2021-10-25 15:03] VITALS: BP 125/78
== END 2021-10-25 15:03 | disposition home or self-care (01) ==
LOC: EDUNIT# 11:34 → ER 11:36
DX: R51.9 Headache, unspecified (principal); R09.81 Nasal congestion; R06.02 Shortness of breath; R68.83 Chills (without fever); I10 Essential (primary) hypertension; K21.9 Gastro-esophageal reflux disease without esophagitis; F41.9 Anxiety disorder, unspecified; F32.A Depression, unspecified; E66.9 Obesity, unspecified; F17.200 Nicotine dependence, unspecified, uncomplicated; Z68.35 Body mass index [BMI] 35.0-35.9, adult; Z86.69 Personal history of other diseases of the nervous system and sense organs; Z79.899 Other long term (current) drug therapy; Z20.822 Contact with and (suspected) exposure to COVID-19
CPT/HCPCS: 71045; 87635

== ENCOUNTER 2021-12-09 16:37 | Emergency (ER) | payer BC ==
[~2021-12-09] VITALS: Ht 177 cm; Wt 104.0 kg
--- NOTE | 2021-12-09 17:04 | ED General ---
General Stated Complaint: SHAKY/SOB/ELEV HR Source of Information: Patient Exam Limitations: No Limitations History of Present Illness Date Seen by Provider: Dec 09, 2021 Time Seen by Provider: 16:45 Initial Comments Patient presents ER by private conveyance from home with chief complaint that she is woke up this morning feeling shaky, headache, occasional nausea, unwell. No sore throat ears underwater cough. She has a history of anxiety. She says she is also notes for the past several days has had more swelling in her legs. She states she does not drink water because it makes her swell look at food rat her she prefers to drink soda all day. She does take ibuprofen for her headache and states she takes ibuprofen on a daily basis. 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 She is not having any unilateral swelling redness heat or pain in any of her extremities. No recent surgery, trauma, long road trips or other periods of immobility. She does not have a history of heart or lung disease. She denies a history of dysrhythmias. Allergies and Home Medications Allergies Coded Allergies: Alan Known Allergies (Verified Allergy, Unknown, 02/17/06) Patient Home Medication List Home Medication List Reviewed: Yes Alprazolam (Xanax) 0.5 Mg Tablet, 0.5 MG PO QID PRN for ANXIETY, (Reported) Entered as Reported by: RICHIE KENNEDY on 04/10/17 0845 Amitriptyline HCl (Amitriptyline HCl) 50 Mg Tablet, 50 MG PO HS, (Reported) Entered as Reported by: BECKY HUFF on 04/09/17 1605 Amoxicillin/Potassium Clav (Augmentin 875-125 Tablet) 1 Each Tablet, 1 EACH PO BID Prescribed by: VIJAYA MANZO on 12/06/202120 Apixaban (Eliquis) 5 Mg Tablet, 10 MG PO BID Prescribed by: WILLIAM NAVAS on 04/10/17 105 Apixaban (Eliquis) 5 Mg Tablet, 5 MG PO BID Prescribed by: WILLIAM NAVAS on 04/10/171050 Azithromycin (Azithromycin) 250 Mg Tablet, 250 MG PO UD Prescribed by: VIJAYA MANZO on 12/06/202120 Clindamycin HCl (Clindamycin HCl) 300 Mg Capsule, 300 MG PO Q6H Prescribed by: EVERT HER on 05/01/18 1720 Fluticasone Propionate (Flovent Hfa 220 mcg) 1 Ea Aero, 2 PUFF IH BID Prescribed by: VIJAYA MANZO on 12/06/20 2121 Hydrocodone Bit/Acetaminophen (HYDROcodone/APAP 10/325 TABLET) 1 Each Tablet, 1 TAB PO Q6H PRN for PAIN-MODERATE, (Reported) Entered as Reported by: BECKY HUFF on 04/09/17 1605 Hydrocodone/Ibuprofen (Hydrocodone-Ibuprofen 5-200 mg) 1 Each Tablet, 1 EACH PO Q6H Prescribed by: EVERT HER on 05/01/18 1720 Melatonin (Melatonin) 10 Mg Capsule, 10 MG PO HS, (Reported) Entered as Reported by: BECKY HUFF on 04/09/17 1605 Metoprolol Tartrate (Metoprolol Tartrate) 25 Mg Tablet, 25 MG PO DAILY, (Reported) Entered as Reported by: JOYA MURDOCK on 01/24/15 1223 Pantoprazole Sodium (Protonix) 40 Mg Tablet.dr, 40 MG PO DAILY, (Reported) Entered as Reported by: BECKY HUFF on 04/09/17 1605 Ropinirole HCl (Requip) 2 Mg Tablet, 2 MG PO HS, (Reported) Entered as Reported by: RICHIE KENNEDY on 04/10/17 0845 Sumatriptan Succinate (Sumatriptan Succinate) 25 Mg Tablet, 25 MG PO UD PRN for HEADACHE, (Reported) Entered as Reported by: JOYA MURDOCK on 01/24/15 1223 Review of Systems Review of Systems Constitutional: No chills, No diaphoresis EENTM: No ear discharge, No ear pain Respiratory: No cough; short of breath; No wheezing Cardiovascular: No chest pain, No edema, No Hx of Intervention, No palpitations, No syncope Gastrointestinal: No abdominal pain; nausea; No vomiting Genitourinary: No discharge, No dysuria Musculoskeletal: No back pain, No joint pain Skin: No pruritus, No rash Psychiatric/Neurological: See HPI, Anxiety All Other Systems Reviewed Negative Unless Noted: Yes Past Jaxhyct-Xcmhrm-Kcgtxn Hx Patient Social History Tobacco Use?: No Use of E-Cig and/or Vaping dev: No Substance use?: No Immunizations Up To Date Tetanus Booster (TDap): Unknown First/Initial COVID19 Vaccinat: FEBRUARY 2021 Second COVID19 Vaccination Chandu: MARCH 2021 Seasonal Allergies Seasonal Allergies: No Past Medical History Surgeries: Yes (ceserean section x 2, LEFT KNEE SCOPE, THROAT) Section, Hysterectomy, Orthopedic, Tonsillectomy Respiratory: Yes Pneumonia, Pulmonary Embolism Cardiac: Yes Deep Vein Thrombosis, Hypertension Neurological: Yes Headaches /Migraines Reproductive Disorders: No 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, 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 Sexually Transmitted Disease: No HIV/AIDS: No Genitourinary: No Gastrointestinal: Yes Gastroesophageal Reflux Musculoskeletal: Yes Arthritis Endocrine: No HEENT: No Loss of Vision: Denies Hearing Impairment: Denies Cancer: No Psychosocial: Yes Anxiety, Depression Integumentary: No Blood Disorders: No Family Medical History Atrial fibrillation 19 MOTHER, Onset:Unknown Cancer of mouth 19 FATHER, Onset:Unknown Headache disorder 19 MOTHER, Onset:Unknown No Family History of: AIDS Abdominal aortic aneurysm Davis's disease Alcoholism Alzheimer's disease Aphasia Arthritis Asthma Cardiovascular disease Cataracts Colon cancer Completed stroke Congenital disease Congenital heart disease Coronary thrombosis Cystic fibrosis Deafness or hearing loss Dementia Diabetes mellitus Drug abuse Dysphasia Fibrocystic disease of breast Gastroenteritis Glaucoma Hypercholesterolemia Hypertension Infertility Kidney disease Myocardial infarction Neoplasm Not obtainable due to adoption Osteoporosis Parkinson's disease Prostate cancer Psychosocial problem Respiratory disorder Seizure disorder Severe allergy Thyroid disease Tuberculosis Visual disorder Physical Exam Vital Signs Vital Signs - First Documented 12/09/21 16:45 Temp 36.9 Pulse 108 Resp 18 B/P (MAP) 126/69 (88) Pulse Ox 97 Capillary Refill : Height, Weight, BMI Height: 5'10.00" Weight: 220lbs. 0.0oz. 99.132590rc; 35.00 BMI Method:Stated General Appearance: Anxious, Obese Eyes: Bilateral Eye Normal Inspection, Bilateral Eye PERRL, Bilateral Eye EOMI HEENT: PERRL/EOMI, Pharynx Normal, Moist Mucous Membranes Neck: Full Range of Motion, Normal Inspection Respiratory: Lungs Clear, Normal Breath Sounds, No Accessory Muscle Use, No Respiratory Distress Cardiovascular: Regular Rate, Rhythm, No Edema, Normal Peripheral Pulses Gastrointestinal: Normal Bowel Sounds, Non Tender, Soft, Other (Heart rate started out about 108 and as the interview concluded her heart rate is 80.) Extremity: Normal Capillary Refill, Normal Inspection, Pedal Edema (Moderate bipedal ankle edema) Neurologic/Psychiatric: Alert, Oriented x3, No Motor/Sensory Deficits; No Normal Mood/Affect (Anxious affect); 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 Norm as Tested Skin: Normal Color, Warm/Dry Progress/Results/Core Measures Suspected Sepsis SIRS Temperature: Pulse: Respiratory Rate: Laboratory Tests 12/09/21 17:05: White Blood Count 6.5 Blood Pressure / Mean: Laboratory Tests 12/09/21 17:05: Creatinine 1.00, Platelet Count 249, Total Bilirubin 0.3 Results/Orders Lab Results Laboratory Tests Test 12/09/21 17:05 12/09/21 17:09 12/09/21 17:15 12/09/21 17:17 Range/Units White Blood Count 6.5 4.3-11.0 10^3/uL Red Blood Count 4.38 3.80-5.11 10^6/uL Hemoglobin 12.6 11.5-16.0 g/dL Hematocrit 38 35-52 % Mean Corpuscular Volume 86 80-99 fL Mean Corpuscular Hemoglobin 29 25-34 pg Mean Corpuscular Hemoglobin Concent 33 32-36 g/dL Red Cell Distribution Width 13.2 10.0-14.5 % Platelet Count 249 130-400 10^3/uL Mean Platelet Volume 9.9 9.0-12.2 fL Immature Granulocyte % (Auto) 0 % Neutrophils (%) (Auto) 54 42-75 % Lymphocytes (%) (Auto) 33 12-44 % Monocytes (%) (Auto) 11 0-12 % Eosinophils (%) (Auto) 2 0-10 % Basophils (%) (Auto) 1 0-10 % Neutrophils # (Auto) 3.5 1.8-7.8 10^3/uL Lymphocytes # (Auto) 2.1 1.0-4.0 10^3/uL Monocytes # (Auto) 0.7 0.0-1.0 10^3/uL Eosinophils # (Auto) 0.1 0.0-0.3 10^3/uL Basophils # (Auto) 0.0 0.0-0.1 10^3/uL Immature Granulocyte # (Auto) 0.0 0.0-0.1 10^3/uL Sodium Level 138 135-145 MMOL/L Potassium Level 3.7 3.6-5.0 MMOL/L Chloride Level 104 98-107 MMOL/L Carbon Dioxide Level 24 21-32 MMOL/L Anion Gap 10 5-14 MMOL/L Blood Urea Nitrogen 12 7-18 MG/DL Creatinine 1.00 0.60-1.30 MG/DL Estimat Glomerular Filtration Rate 69 BUN/Creatinine Ratio 12 Glucose Level 117 H 70-105 MG/DL Calcium Level 8.9 8.5-10.1 MG/DL Corrected Calcium 9.2 8.5-10.1 MG/DL Total Bilirubin 0.3 0.1-1.0 MG/DL Aspartate Amino Transf (AST/SGOT) 25 5-34 U/L Alanine Aminotransferase (ALT/SGPT) 30 0-55 U/L Alkaline Phosphatase 90 40-136 U/L Troponin I < 0.028 <0.028 NG/ML C-Reactive Protein High Sensitivity 0.79 H 0.00-0.50 MG/DL B-Type Natriuretic Peptide < 10.0 <100.0 PG/ML Total Protein 6.4 6.4-8.2 GM/DL Albumin 3.6 3.2-4.5 GM/DL Urine Color YELLOW Urine Clarity CLEAR Urine pH 6.0 5-9 Urine Specific [place] 1.025 H 1.016-1.022 Urine Protein NEGATIVE NEGATIVE Urine Glucose (UA) NEGATIVE NEGATIVE Urine Ketones NEGATIVE NEGATIVE Urine Nitrite NEGATIVE NEGATIVE Urine Bilirubin NEGATIVE NEGATIVE Urine Urobilinogen 0.2 < = 1.0 MG/DL Urine Leukocyte Esterase NEGATIVE NEGATIVE Urine RBC (Auto) NEGATIVE NEGATIVE Urine RBC NONE /HPF Urine WBC RARE /HPF Urine Squamous Epithelial Cells 0-2 /HPF Urine Crystals NONE /LPF Urine Bacteria NEGATIVE /HPF Urine Casts NONE /LPF Urine Mucus SMALL H /LPF Urine Culture Indicated NO Urine Opiates Screen NEGATIVE NEGATIVE Urine Oxycodone Screen NEGATIVE NEGATIVE Urine Methadone Screen NEGATIVE NEGATIVE Urine Propoxyphene Screen NEGATIVE NEGATIVE Urine Barbiturates Screen NEGATIVE NEGATIVE Ur Tricyclic Antidepressants Screen NEGATIVE NEGATIVE Urine Phencyclidine Screen NEGATIVE NEGATIVE Urine Amphetamines Screen NEGATIVE NEGATIVE Urine Methamphetamines Screen NEGATIVE NEGATIVE Urine Benzodiazepines Screen NEGATIVE NEGATIVE Urine Cocaine Screen NEGATIVE NEGATIVE Urine Cannabinoids Screen NEGATIVE NEGATIVE Glucometer 141 H 70-110 MG/DL Blood Gas Puncture Site LFTRAD Blood Gas Patient Temperature 37 Arterial Blood pH 7.38 7.37-7.43 Arterial Blood Partial Pressure CO2 47 H 35-45 MMHG Arterial Blood Partial Pressure O2 53 L 79-93 MMHG Arterial Blood HCO3 27 23-27 MMOL/L Arterial Blood Total CO2 28.3 21.0-31.0 MMOL/L Arterial Blood Oxygen Saturation 88 L 94-100 % Arterial Blood Base Excess 2.2 -2.5-2.5 MMOL/L Jose Test POS Blood Gas Ventilator Setting NO Blood Gas Inspired Oxygen ROOM AIR My Orders Orders - MICKEY LEE Accucheck Stat ONCE (12/09/21 16:55) Arterial Blood Gas (12/09/21 16:55) Ekg Tracing (12/09/21 16:55) Continuous Ekg Monitoring (12/09/21 16:55) Troponin I Kimball (12/09/21 16:55) Cbc With Automated Diff (12/09/21 16:55) Comprehensive Metabolic Panel (12/09/21 16:55) Hs C Reactive Protein (12/09/21 16:55) Bnp Kimball (12/09/21 16:55) Chest 1 View, Ap/Pa Only (12/09/21 16:55) Ua Culture If Indicated (12/09/21 16:55) Drug Screen Stat (Urine) (12/09/21 16:55) Orthostatic Vital Signs (Adult (12/09/21 17:04) Vital Signs/I&O 12/09/21 12/09/21 16:45 17:11 Temp 36.9 Pulse 108 81 89 90 Resp 18 B/P (MAP) 126/69 (88) 123/68 (86) 130/87 (101) 123/72 (89) Pulse Ox 97 Capillary Refill : Progress Note #1: Time: 17:03 Progress Note Suspect she is having anxiety attacks we will get an ABG to demonstrate if she is in respiratory alkalosis. We will also check chest x-ray and some basic lab, urinalysis, urine drug screen. Will encourage her to drink more fluids. Orthostatics. Progress Note #2: Time: 17:33 Progress Note ABG appears to be venous and since the pH is relatively normal on a venous draw this indicates she is alkalotic. Likely she is respiratory alkalotic due to an anxiety attack. The rest of her labs and x-ray look okay will offer her an Ativan if she needs it although she seems to calm down some and may be some Phenergan for her migraine. Progress Note #3: Time: 18:19 Progress Note Patient's chest x-ray does show some pulmonary edema which would be concerning however the patient's BNP is undetectable. We have discussed with her doing so compression stockings for her legs, a dose of Ativan and Phenergan for her migraine and return precautions. ECG Initial ECG Impression Date: Dec 09, 2021 Initial ECG Impression Time: 17:03 Initial ECG Rate: 81 Initial ECG Rhythm: Normal Sinus Initial ECG Intervals: Normal Initial ECG Impression: Normal Comment Normal sinus rhythm without clinically relevant ST changes. Diagnostic Imaging Diagonstic Imaging: Xray Plain Films/CT/US/NM/MRI: chest Comments [facility] [place] [place] NAME: TIN CORRALES [facility] REC#: [id number] PT STATUS: REG ER : 1970 PHYSICIAN: MICKEY LEE MD ADMIT DATE: 12/09/21/ER Draft Date of Exam:12/09/21 CHEST 1 VIEW, AP/PA ONLY INDICATION: Chest pain. Shortness of air. History of COVID pneumonia. COMPARISON: 10/25/2021 FINDINGS: Single frontal radiographic view of the chest was obtained and demonstrates borderline enlargement of the cardiac silhouette and slight prominence of the pulmonary vasculature. Pulmonary interstitium is also mildly diffusely prominent. There is no large effusion or pneumothorax. Osseous structures show no gross acute abnormalities. IMPRESSION: 1. Mild enlargement of the cardiac silhouette. Although this may be exaggerated by portable technique, there is slight pulmonary vasculature prominence as well as slight prominence of the pulmonary interstitium. Findings are suspicious for pulmonary edema. Interstitial pneumonia is also a consideration. Clinical correlation is advised. Dictated on workstation # [id number] Dict: 12/09/21 1732 Trans: 12/09/21 1735 [facility] [id number] Interpreted by: ANISH MARTI MD Electronically signed by: Reviewed: Reviewed by Me Departure Impression Primary Impression: Dependent edema Additional Impressions: Migraine Qualified Codes: G43.009 - Migraine without aura, not intractable, without status migrainosus Anxiety Disposition: 01 HOME, SELF-CARE Condition: Stable Departure-Patient Inst. Decision time for Depature: 18:21 Referrals: [facility] (PCP/Family) Primary Care Physician Patient Instructions: Anxiety, Adult ED, Swelling Add. Discharge Instructions: Get some rest tonight. The Phenergan and Ativan will cause some drowsiness. Compression stockings can be found at any pharmacy or [employer]. Wear these on the days you have swelling to help reduce swelling. You can also wear them to prevent leg swelling. Walk frequently and to keep the legs moving and to help the bring the fluid about your legs. When you are sitting down try and prop her legs up at or above the level of your heart when possible to reduce swelling. Promptly return to the ER for chest pain, shortness of air or other worrisome symptoms. If your symptoms are persistent then follow-up with your primary care doctor. Work/School Note: Work Release Form Date Seen in the Emergency Department: Dec 09, 2021 Return to Work: Dec 10, 2021 Restrictions: No Restrictions MICKEY LEE Dec 09, 2021 17:03
[2021-12-09 17:11] VITALS: BP_SYST 123; BP_SYST 130; BP_DIAS 68; BP_DIAS 72; BP_DIAS 87
[2021-12-09 17:15] LABS: BASOPHILS % (AUTO) 1 % (0-10); EOSINOPHILS # (AUTO) 0.1 10^3/uL (0.0-0.3); EOSINOPHILS % (AUTO) 2 % (0-10); HEMATOCRIT 38 % (35-52); HEMOGLOBIN 12.6 g/dL (11.5-16.0); LYMPHOCYTES # (AUTO) 2.1 10^3/uL (1.0-4.0); LYMPHOCYTES % (AUTO) 33 % (12-44); MEAN CORPUSCULAR HEMOGLOBIN 29 pg (25-34); MEAN CORPUSCULAR HGB CONC 33 g/dL (32-36); MEAN CORPUSCULAR VOLUME 86 fL (80-99); MEAN PLATELET VOLUME 9.9 fL (9.0-12.2); MONOCYTES # (AUTO) 0.7 10^3/uL (0.0-1.0); MONOCYTES % (AUTO) 11 % (0-12); NEUTROPHILS # (AUTO) 3.5 10^3/uL (1.8-7.8); NEUTROPHILS % (AUTO) 54 % (42-75); PLATELET COUNT 249 10^3/uL (130-400); WHITE BLOOD COUNT 6.5 10^3/uL (4.3-11.0)
[2021-12-09 17:17] LABS: BILIRUBIN,URINE NEGATIVE (NEGATIVE); CLARITY,URINE CLEAR; COLOR,URINE YELLOW; GLUCOSE, URINE (UA) NEGATIVE (NEGATIVE); KETONES,URINE NEGATIVE (NEGATIVE); LEUKOCYTE ESTERASE ,URINE NEGATIVE (NEGATIVE); NITRITE,URINE NEGATIVE (NEGATIVE); PROTEIN,URINE NEGATIVE (NEGATIVE)
[2021-12-09 17:23] LABS: ABG BASE EXCESS 2.2 MMOL/L (-2.5-2.5); ABG OXYGEN SATURATION 88 % (94-100); ABG PCO2 47 MMHG (35-45); ABG PH 7.38 (7.37-7.43); ABG PO2 53 MMHG (79-93); ABG TCO2 28.3 MMOL/L (21.0-31.0)
[2021-12-09 17:26] LABS: ALLENS TEST POS; INSPIRED O2 ROOM AIR; PATIENT TEMP 37; VENTILATOR NO
[2021-12-09 17:26] LABS: ALBUMIN 3.6 GM/DL (3.2-4.5); CHLORIDE 104 MMOL/L (98-107); POTASSIUM 3.7 MMOL/L (3.6-5.0); SODIUM 138 MMOL/L (135-145)
[2021-12-09 17:28] LABS: CALCIUM 8.9 MG/DL (8.5-10.1)
[2021-12-09 17:28] LABS: BACTERIA,URINE NEGATIVE /HPF; SQUAMOUS EPITHELIAL CELL,UR 0-2 /HPF; WBC,URINE RARE /HPF
[2021-12-09 17:29] LABS: AMPHETAMINE SCREEN, URINE NEGATIVE (NEGATIVE); BARBITURATE SCREEN URINE NEGATIVE (NEGATIVE); BENZODIAZEPINES SCREEN URINE NEGATIVE (NEGATIVE); CANNABINOID SCREEN, URINE NEGATIVE (NEGATIVE); COCAINE SCREEN URINE NEGATIVE (NEGATIVE); METHADONE STAT NEGATIVE (NEGATIVE); METHAMPHETAMINE SCREEN URINE S NEGATIVE (NEGATIVE); OPIATE SCREEN URINE NEGATIVE (NEGATIVE); OXYCODONE STAT NEGATIVE (NEGATIVE); PROPOXYPHENE STAT NEGATIVE (NEGATIVE); TRICYCLIC ANTIDEPRESSANTS SCRE NEGATIVE (NEGATIVE)
[2021-12-09 17:29] LABS: GLUCOSE 117 MG/DL (70-105); TOTAL PROTEIN 6.4 GM/DL (6.4-8.2)
[2021-12-09 17:30] LABS: CARBON DIOXIDE 24 MMOL/L (21-32)
[2021-12-09 17:31] LABS: BILIRUBIN,TOTAL 0.3 MG/DL (0.1-1.0)
[2021-12-09 17:32] LABS: ALKALINE PHOSPHATASE 90 U/L (40-136)
[2021-12-09 17:33] LABS: GFR ESTIMATED 69
[2021-12-09 17:34] LABS: BUN/CREATININE RATIO 12
[2021-12-09 17:35] LABS: ALANINE AMINOTRANSFERASE 30 U/L (0-55)
--- NOTE | 2021-12-09 17:35 | Diagnostic Imaging Report ---
INDICATION: Chest pain. Shortness of air. History of COVID pneumonia. COMPARISON: 10/25/2021 FINDINGS: Single frontal radiographic view of the chest was obtained and demonstrates borderline enlargement of the cardiac silhouette and slight prominence of the pulmonary vasculature. Pulmonary interstitium is also mildly diffusely prominent. There is no large effusion or pneumothorax. Osseous structures show no gross acute abnormalities. IMPRESSION: 1. Mild enlargement of the cardiac silhouette. Although this may be exaggerated by portable technique, there is slight pulmonary vasculature prominence as well as slight prominence of the pulmonary interstitium. Findings are suspicious for pulmonary edema. Interstitial pneumonia is also a consideration. Clinical correlation is advised. Dictated by: Dictated on workstation # [id number]
[2021-12-09] MEDS ORDERED: LORazepam 0.5 MG (ATIVAN) TABLET PO ONE (18:30)
[2021-12-09] MEDS ORDERED: diphenhydrAMINE 25 MG TAB (BENADRYL) PO ONE (18:30)
[2021-12-09] MEDS ORDERED: PROMETHAZINE INJ 25 MG/ML (PHENERGAN) AMP IVP ONE (18:30)
[2021-12-09 18:40] VITALS: BP 102/53
== END 2021-12-09 18:40 | disposition home or self-care (01) ==
LOC: EDUNIT# 16:37 → ER 16:39
DX: R60.9 Edema, unspecified (principal); G43.909 Migraine, unspecified, not intractable, without status migrainosus; F41.9 Anxiety disorder, unspecified; E66.9 Obesity, unspecified; Z68.35 Body mass index [BMI] 35.0-35.9, adult; Z79.01 Long term (current) use of anticoagulants
CPT/HCPCS: 36415; 71045; 80053; 80306; 81000; 82805; 82947; 83880; 84484; 85025; 86141; 93005

== ENCOUNTER 2021-12-22 14:26 | Emergency (ER) | payer BC ==
[~2021-12-22] VITALS: Ht 177 cm; Wt 108.0 kg
[2021-12-22 14:35] VITALS: BP 138/76
--- NOTE | 2021-12-22 15:25 | Diagnostic Imaging Report ---
INDICATION: Ankle and foot pain after stepping off sidewalk wrong.. TECHNIQUE: 3 views of the right foot CORRELATION STUDY: None FINDINGS: The osseous structures of the foot are intact. Joint spaces are maintained. Alignment anatomic. Questional irregularity distal fibula. Soft tissues appearing unremarkable. IMPRESSION: 1. Negative for acute findings of the foot. Question of cortical irregularity distal fibula, correlation with findings at dedicated ankle views. Dictated by: Dictated on workstation # [id number]
--- NOTE | 2021-12-22 15:30 | Diagnostic Imaging Report ---
HISTORY: Right ankle pain. TECHNIQUE: 3 views of the right ankle. COMPARISON: None. FINDINGS: No acute fracture or dislocation is seen in the right ankle. There appears to be an old healed lateral malleolus fracture. The ankle mortise appears symmetric and the talar dome is intact. No ankle joint effusion is seen. There is moderate lateral soft tissue swelling. IMPRESSION: 1. Old healed lateral malleolus fracture with no acute osseous abnormality seen in the right ankle. 2. Moderate lateral soft tissue swelling. Dictated by: Dictated on workstation # [id number]
--- NOTE | 2021-12-22 15:33 | ED Lower Extremity ---
General Chief Complaint: Lower Extremity Stated Complaint: R FOOT PAIN Nursing Triage Note: ARRIVED VIA AMB TO [facility] WITH COMPLAINTS OF RIGHT ANKLE PAIN AFTER STEPPING OFF THE SIDEWALK WRONG. History of Present Illness Date Seen by Provider: Dec 22, 2021 Time Seen by Provider: 14:35 Initial Comments 51-year-old female presents for 3 to 4-day history of right foot and ankle pain. She states stepping off the sidewalk, her ankle rolled causing an inversion injury. She denies any previous history of injuries to her right foot or ankle. She has been trying Tylenol, Aleve, and ibuprofen with no improvement in her symptoms she has iced it. Pain/Injury Location: right foot, right ankle Method of Injury: fell, twisted Allergies and Home Medications Allergies Coded Allergies: WESTANo Known Allergies (Verified Allergy, Unknown, 02/17/06) Patient Home Medication List Home Medication List Reviewed: Yes Alprazolam (Xanax) 0.5 Mg Tablet, 0.5 MG PO QID PRN for ANXIETY, (Reported) Entered as Reported by: RICHIE KENNEDY on 04/10/17 0845 Amitriptyline HCl (Amitriptyline HCl) 50 Mg Tablet, 50 MG PO HS, (Reported) Entered as Reported by: BECKY HUFF on 04/09/17 1605 Amoxicillin/Potassium Clav (Augmentin 875-125 Tablet) 1 Each Tablet, 1 EACH PO BID Prescribed by: VIJAYA MANZO on 12/06/202120 Apixaban (Eliquis) 5 Mg Tablet, 10 MG PO BID Prescribed by: WILLIAM NAVAS on 04/10/17 1051 Apixaban (Eliquis) 5 Mg Tablet, 5 MG PO BID Prescribed by: WILLIAM NAVAS on 04/10/17 1051 Azithromycin (Azithromycin) 250 Mg Tablet, 250 MG PO UD Prescribed by: VIJAYA MANZO on 12/06/202120 Clindamycin HCl (Clindamycin HCl) 300 Mg Capsule, 300 MG PO Q6H Prescribed by: EVERT HER on 05/01/18 172 Fluticasone Propionate (Flovent Hfa 220 mcg) 1 Ea Aero, 2 PUFF IH BID Prescribed by: VIJAYA MANZO on 12/06/202120 Hydrocodone Bit/Acetaminophen (HYDROcodone/APAP 10/325 TABLET) 1 Each Tablet, 1 TAB PO Q6H PRN for PAIN-MODERATE, (Reported) Entered as Reported by: BECKY HUFF on 04/09/17 1605 Hydrocodone/Ibuprofen (Hydrocodone-Ibuprofen 5-200 mg) 1 Each Tablet, 1 EACH PO Q6H Prescribed by: EVERT HER on 05/01/18 1720 Melatonin (Melatonin) 10 Mg Capsule, 10 MG PO HS, (Reported) Entered as Reported by: BECKY HUFF on 04/09/17 1605 Metoprolol Tartrate (Metoprolol Tartrate) 25 Mg Tablet, 25 MG PO DAILY, (Reported) Entered as Reported by: JOYA MURDOCK on 01/24/15 1223 Pantoprazole Sodium (Protonix) 40 Mg Tablet.dr, 40 MG PO DAILY, (Reported) Entered as Reported by: BECKY HUFF on 04/09/17 1605 Ropinirole HCl (Requip) 2 Mg Tablet, 2 MG PO HS, (Reported) Entered as Reported by: RICHIE KENNEDY on 04/10/17 0845 Sumatriptan Succinate (Sumatriptan Succinate) 25 Mg Tablet, 25 MG PO UD PRN for HEADACHE, (Reported) Entered as Reported by: JOYA MURDOCK on 01/24/15 1223 Review of Systems Constitutional: no symptoms reported, see HPI Musculoskeletal: see HPI, joint pain (right ankle/foot pain) All Other Systems Reviewed Negative Unless Noted: Yes Past Jbacnsq-Rpdqqr-Ikkyxk Hx Patient Social History Smoking Status: Current Everyday Smoker Alcohol Use?: No Immunizations Up To Date Tetanus Booster (TDap): Unknown First/Initial COVID19 Vaccinat: FEBRUARY 2021 Second COVID19 Vaccination Chandu: UNKNOWN DATE Third COVID19 Vaccination Date: FEBRUARY 2021 COVID19 Vaccine Fiberglass Laminator: MODERNA Seasonal Allergies Seasonal Allergies: No Past Medical History Surgery/Hospitalization HX: HYSTERECTOMY AND BLOOD CLOTS Surgeries: Yes (ceserean section x 2, LEFT KNEE SCOPE, THROAT) Section, Hysterectomy, Orthopedic, Tonsillectomy Respiratory: Yes Pneumonia, Pulmonary Embolism Cardiac: Yes Deep Vein Thrombosis, Hypertension Neurological: Yes Headaches /Migraines Reproductive Disorders: No 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, 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 Sexually Transmitted Disease: No HIV/AIDS: No Genitourinary: No Gastrointestinal: Yes Gastroesophageal Reflux Musculoskeletal: Yes Arthritis Endocrine: No HEENT: No Loss of Vision: Denies Hearing Impairment: Denies Cancer: No Psychosocial: Yes Anxiety, Depression Integumentary: No Blood Disorders: No Family Medical History Reviewed Nursing Family Hx Atrial fibrillation 19 MOTHER, Onset:Unknown Cancer of mouth 19 FATHER, Onset:Unknown Headache disorder 19 MOTHER, Onset:Unknown No Family History of: AIDS Abdominal aortic aneurysm Alek's disease Alcoholism Alzheimer's disease Aphasia Arthritis Asthma Cardiovascular disease Cataracts Colon cancer Completed stroke Congenital disease Congenital heart disease Coronary thrombosis Cystic fibrosis Deafness or hearing loss Dementia Diabetes mellitus Drug abuse Dysphasia Fibrocystic disease of breast Gastroenteritis Glaucoma Hypercholesterolemia Hypertension Infertility Kidney disease Myocardial infarction Neoplasm Not obtainable due to adoption Osteoporosis Parkinson's disease Prostate cancer Psychosocial problem Respiratory disorder Seizure disorder Severe allergy Thyroid disease Tuberculosis Visual disorder Physical Exam Vital Signs Vital Signs - First Documented 12/22/21 14:35 Temp 36.6 Pulse 71 Resp 16 B/P (MAP) 138/76 (96) Pulse Ox 96 O2 Delivery Room Air Capillary Refill : Less Than 3 Seconds Height, Weight, BMI Height: 5'10.00" Weight: 220lbs. 0.0oz. 99.341995xm; 34.00 BMI Method:Stated General Appearance: WD/WN, no apparent distress Cardiovascular: normal peripheral pulses, regular rate, rhythm Respiratory: chest non-tender, lungs clear, normal breath sounds Ankles: right ankle limited range of motion, right ankle pain, right ankle soft tissue tenderness, right ankle swelling Feet: right foot normal inspection, right foot normal range of motion, right foot soft tissue tenderness Neurologic/Psychiatric: no motor/sensory deficits, alert, normal mood/affect, oriented x 3 Skin: normal color, warm/dry Progress/Results/Core Measures Results/Orders My Orders Orders - VIJAYA MANZO Ankle, Right, 3 Views (12/22/21 15:03) Foot, Right, 3 View (12/22/21 15:06) Vital Signs/I&O 12/22/21 14:35 Temp 36.6 Pulse 71 Resp 16 B/P (MAP) 138/76 (96) Pulse Ox 96 O2 Delivery Room Air Blood Pressure Mean: 96 Diagnostic Imaging Diagonstic Imaging: Xray Plain Films/CT/US/NM/MRI: other (foot) Comments NAME: [facility] REC#: [id number] PT STATUS: REG ER : 1970 PHYSICIAN: VIJAYA MANZO ADMIT DATE: 12/22/21/ER Draft Date of Exam:12/22/21 FOOT, RIGHT, 3 VIEW INDICATION: Ankle and foot pain after stepping off sidewalk wrong.. TECHNIQUE: 3 views of the right foot CORRELATION STUDY: None FINDINGS: The osseous structures of the foot are intact. Joint spaces are maintained. Alignment anatomic. Questional irregularity distal fibula. Soft tissues appearing unremarkable. IMPRESSION: 1. Negative for acute findings of the foot. Question of cortical irregularity distal fibula, correlation with findings at dedicated ankle views. Dictated on workstation # [id number] Dict: 12/22/21 1524 Trans: 12/22/21 1525 DO [id number] Interpreted by: KALPANA MIGUEL DO Electronically signed by: Reviewed: Reviewed by Me Diagonstic Imaging: Xray Plain Films/CT/US/NM/MRI: ankle Comments NAME: [facility] REC#: [id number] PT STATUS: REG ER : 1970 PHYSICIAN: VIJAYA MANZO ADMIT DATE: 12/22/21/ER Draft Date of Exam:12/22/21 ANKLE, RIGHT, 3 VIEWS HISTORY: Right ankle pain. TECHNIQUE: 3 views of the right ankle. COMPARISON: None. FINDINGS: No acute fracture or dislocation is seen in the right ankle. There appears to be an old healed lateral malleolus fracture. The ankle mortise appears symmetric and the talar dome is intact. No ankle joint effusion is seen. There is moderate lateral soft tissue swelling. IMPRESSION: 1. Old healed lateral malleolus fracture with no acute osseous abnormality seen in the right ankle. 2. Moderate lateral soft tissue swelling. Dictated on workstation # [id number] Dict: 12/22/21 1523 Trans: 12/22/21 1529 [facility] [id number] Interpreted by: GIL HINES MD Electronically signed by: Reviewed: Reviewed by Me Departure Impression Primary Impression: Right ankle sprain Qualified Codes: S93.491A - Sprain of other ligament of right ankle, initial encounter Disposition: 01 HOME, SELF-CARE Condition: Improved Departure-Patient Inst. Decision time for Depature: 15:20 Referrals: [facility] (PCP/Family) Primary Care Physician Patient Instructions: Foot Sprain (DC), Ankle Sprain (DC) Add. Discharge Instructions: Ice and elevate right ankle. Alternate between Tylenol 650 mg and ibuprofen 600 mg every 4 hours. Gentle range of motion to your right ankle and foot as tolerated. Follow-up with your primary care provider if symptoms are not improving or worsen. Return to the emergency department for new, urgent healthcare needs. All discharge instructions reviewed with patient and/or family. Voiced understanding. VIJAYA MANZO Dec 22, 2021 15:32
== END 2021-12-22 15:45 | disposition home or self-care (01) ==
LOC: EDUNIT# 14:26 → ER 14:28
DX: S93.491A Sprain of other ligament of right ankle, initial encounter (principal); F17.200 Nicotine dependence, unspecified, uncomplicated; X50.1XXA Overexertion from prolonged static or awkward postures, initial encounter
CPT/HCPCS: 73610; 73630

== ENCOUNTER → 2021-12-27 | Outpatient (CLI) | payer BC | LOC: CARD 13:00 | PROVIDERS: ATTEND Pediatrics | DX: I87.2 Venous insufficiency (chronic) (peripheral) (principal); Z86.718 Personal history of other venous thrombosis and embolism | CPT/HCPCS: 93306 ==

== ENCOUNTER 2022-04-01 23:06 | Emergency (ER) | payer BC ==
[2022-04-01 23:23] VITALS: BP 140/74
--- NOTE | 2022-04-02 00:23 | ED Lower Extremity ---
General Chief Complaint: Lower Extremity Stated Complaint: LEFT KNEE PAIN Nursing Triage Note: PT PRESENTS WITH REPORTS OF LEFT KNEE PAIN. REPORTS HX OF TORN MENISCUS AND REPORTS THIS FEELS THE SAME. REPORTS AN UNKNOWN SPECIFIC INJURY ON THURSDAY REPORTS SHE WAS PAINTING AND GETTING UP AND DOWN A LOW WHEN IT BEGAN TO HURT AND SWELL Source: patient History of Present Illness Date Seen by Provider: Apr 02, 2022 Time Seen by Provider: 00:01 Initial Comments PT C/O LEFT KNEE PAIN AND SWELLING SINCE THURSDAY STATES SHE WAS MOVING AND PAINTING ALL WEEKEND--KNEELING, GETTING UP AND DOWN, GOING UP AND DOWN LADDERS AND STAIRS, ETC. STATES ON THURSDAY HER LEFT KNEE POPPED, AND SHE HAS HAD PAIN AND SWELLING TO HER KNEE SINCE THEN. NO RELIEF WITH IBUPROFEN AND TYLENOL STATES SHE HAS HAD A TORN MENISCUS REPAIR SEVERAL YEARS AGO IN THIS KNEE--BY DR. PEACOCK, AND IT FEELS THE SAME NOW IT DID THEN PCP: [facility] ORTHOPEDIC SURGEON: DR. PEACOCK Allergies and Home Medications Allergies Coded Allergies: Alan Known Allergies (Verified Allergy, Unknown, 02/17/06) Patient Home Medication List Home Medication List Reviewed: Yes Alprazolam (Xanax) 0.5 Mg Tablet, 0.5 MG PO QID PRN for ANXIETY, (Reported) Entered as Reported by: RICHIE KENNEDY on 04/10/17 0845 Amitriptyline HCl (Amitriptyline HCl) 50 Mg Tablet, 50 MG PO HS, (Reported) Entered as Reported by: BECKY HUFF on 04/09/17 1605 Amoxicillin/Potassium Clav (Augmentin 875-125 Tablet) 1 Each Tablet, 1 EACH PO BID Prescribed by: VIJAYA MANZO on 12/06/202120 Apixaban (Eliquis) 5 Mg Tablet, 10 MG PO BID Prescribed by: WILLIAM NAVAS on 04/10/17 105 Apixaban (Eliquis) 5 Mg Tablet, 5 MG PO BID Prescribed by: WILLIAM NAVAS on 04/10/17 105 Azithromycin (Azithromycin) 250 Mg Tablet, 250 MG PO UD Prescribed by: VIJAYA MANZO on 12/06/202120 Clindamycin HCl (Clindamycin HCl) 300 Mg Capsule, 300 MG PO Q6H Prescribed by: EVERT HER on 05/01/18 1720 Fluticasone Propionate (Flovent Hfa 220 mcg) 1 Ea Aero, 2 PUFF IH BID Prescribed by: VIJAYA MANZO on 12/06/20 2121 Hydrocodone Bit/Acetaminophen (HYDROcodone/APAP 10/325 TABLET) 1 Each Tablet, 1 TAB PO Q6H PRN for PAIN-MODERATE, (Reported) Entered as Reported by: BECKY HUFF on 04/09/17 1605 Hydrocodone/Ibuprofen (Hydrocodone-Ibuprofen 5-200 mg) 1 Each Tablet, 1 EACH PO Q6H Prescribed by: VEERT HER on 05/01/18 1720 Melatonin (Melatonin) 10 Mg Capsule, 10 MG PO HS, (Reported) Entered as Reported by: BECKY HUFF on 04/09/17 1605 Methylprednisolone (Medrol) 4 Mg Tab.ds.pk, 4 MG PO UD Prescribed by: GOSIA SANTOS on 04/02/22 0046 Metoprolol Tartrate (Metoprolol Tartrate) 25 Mg Tablet, 25 MG PO DAILY, (Reported) Entered as Reported by: JOYA MURDOCK on 01/24/15 1223 Pantoprazole Sodium (Protonix) 40 Mg Tablet.dr, 40 MG PO DAILY, (Reported) Entered as Reported by: BECKY HUFF on 04/09/17 1605 Ropinirole HCl (Requip) 2 Mg Tablet, 2 MG PO HS, (Reported) Entered as Reported by: RICHIE KENNEDY on 04/10/17 0845 Sumatriptan Succinate (Sumatriptan Succinate) 25 Mg Tablet, 25 MG PO UD PRN for HEADACHE, (Reported) Entered as Reported by: JOYA MURDOCK on 01/24/15 1223 Review of Systems Constitutional: no symptoms reported Musculoskeletal: see HPI Skin: no symptoms reported Psychiatric/Neurological: No Symptoms Reported Past Azrjbyj-Mjgysp-Nrryul Hx Patient Social History Tobacco Use?: Yes Tobacco type used: Cigarettes Smoking Status: Current Someday Smoker Substance use?: No Alcohol Use?: No Pt feels they are or have been: No Immunizations Up To Date Tetanus Booster (TDap): Unknown Influenza Vaccine Up-to-Date: Yes; Up-to-Date First/Initial COVID19 Vaccinat: UNKNOWN DATE Second COVID19 Vaccination Chandu: UNKNOWN DATE Third COVID19 Vaccination Date: FEBRUARY 2021 COVID19 Vaccine Insurance Representative: SKYLAR Seasonal Allergies Seasonal Allergies: No Past Medical History Surgery/Hospitalization HX: HYSTERECTOMY AND BLOOD CLOTS Surgeries: Yes (ceserean section x 2, LEFT KNEE SCOPE, THROAT) Section, Hysterectomy, Orthopedic, Tonsillectomy Respiratory: Yes Pneumonia, Pulmonary Embolism Cardiac: Yes Deep Vein Thrombosis, Hypertension Neurological: Yes Headaches /Migraines Reproductive Disorders: Yes 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 Disorders: Denies [employer]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, 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 Sexually Transmitted Disease: No HIV/AIDS: No Genitourinary: No Gastrointestinal: Yes Gastroesophageal Reflux Musculoskeletal: Yes (LEFT KNEE SCOPE/TORN MENISCUS) Arthritis Endocrine: No HEENT: No Loss of Vision: Denies Hearing Impairment: Denies Cancer: No Psychosocial: Yes Anxiety, Depression Integumentary: No Blood Disorders: No Family Medical History Atrial fibrillation 19 MOTHER, Onset:Unknown Cancer of mouth 19 FATHER, Onset:Unknown Headache disorder 19 MOTHER, Onset:Unknown No Family History of: AIDS Abdominal aortic aneurysm Bennet's disease Alcoholism Alzheimer's disease Aphasia Arthritis Asthma Cardiovascular disease Cataracts Colon cancer Completed stroke Congenital disease Congenital heart disease Coronary thrombosis Cystic fibrosis Deafness or hearing loss Dementia Diabetes mellitus Drug abuse Dysphasia Fibrocystic disease of breast Gastroenteritis Glaucoma Hypercholesterolemia Hypertension Infertility Kidney disease Myocardial infarction Neoplasm Not obtainable due to adoption Osteoporosis Parkinson's disease Prostate cancer Psychosocial problem Respiratory disorder Seizure disorder Severe allergy Thyroid disease Tuberculosis Visual disorder Physical Exam Vital Signs Vital Signs - First Documented 04/01/22 23:23 Temp 36.7 Pulse 66 Resp 18 B/P (MAP) 140/74 (96) Pulse Ox 95 Capillary Refill : Height, Weight, BMI Height: 5'10.00" Weight: 220lbs. 0.0oz. 99.380607tt; 34.00 BMI Method:Stated General Appearance: WD/WN, no apparent distress Knees: left knee bone tenderness, left knee joint effusion, left knee pain, left knee soft tissue tenderness, left knee swelling Ankles: left ankle normal inspection Feet: left foot normal inspection Neurologic/Tendon: normal sensation, normal motor functions, normal tendon functions Neurologic/Psychiatric: no motor/sensory deficits, alert, normal mood/affect, oriented x 3 Skin: normal color, warm/dry; No ecchymosis Procedures/Interventions Splinting and Joint Reduction : Chito wrap: Yes Immobilizers: 24 inch Knee Progress/Results/Core Measures Results/Orders My Orders Orders - GOSIA SANTOS DO Knee, Left, 3 Views (04/02/22 00:05) Chito Bandage (04/02/22 00:42) Knee Immobilizer (04/02/22 00:42) Ketorolac Injection (Toradol Injection) (04/02/22 00:45) Vital Signs/I&O 04/01/22 23:23 Temp 36.7 Pulse 66 Resp 18 B/P (MAP) 140/74 (96) Pulse Ox 95 Blood Pressure Mean: 96 Diagnostic Imaging Comments XRAYS LEFT KNEE--DEGENERATIVE CHANGES AND EFFUSION/SOFT TISSUE SWELLING, OTHERWISE NO ACUTE PROCESS, PENDING RADIOLOGIST REVIEW Reviewed: Reviewed by Me Departure Impression Primary Impression: Pain and swelling of left knee Disposition: HOME, SELF-CARE Condition: Stable Departure-Patient Inst. Decision time for Depature: 00:45 Referrals: [facility] [place] (PCP/Family) Primary Care Physician BLANQUITA PEACOCK MD Patient Instructions: How to Use an Elastic Bandage, Knee Immobilizer (DC), Knee Pain (DC) Add. Discharge Instructions: CHITO WRAP AND KNEE IMMOBILIZER AT ALL TIMES ELEVATE LEG MUCH POSSIBLE FOLLOW UP WITH DR. PEACOCK THIS WEEK FOR FURTHER CARE--CALL IN THE MORNING TO SCHEDULE APPOINTMENT All discharge instructions reviewed with patient and/or family. Voiced understanding. Scripts Methylprednisolone (Medrol) 4 Mg Tab.ds.pk 4 MG PO UD for 6 Days, #21 PKG PER DOSE PACK INSTRUCTIONS Prov: GOSIA SANTOS DO 04/02/22 GOSIA SANTOS DO Apr 02, 2022 00:23
[2022-04-02] MEDS ORDERED: KETOROLAC 60 MG/2 ML VIAL IM ONE (00:45)
[2022-04-02] MEDS ORDERED: METH4TAB PO (00:46)
--- NOTE | 2022-04-02 07:56 | Diagnostic Imaging Report ---
Clinical indications: Patient knee pain. EXAM: X-ray other left knee, 3 views. COMPARISON: None. FINDINGS: There is no acute fracture or dislocation. There is moderate medial compartment narrowing. There are moderately hypertrophic spurs involving the medial compartment and patellofemoral compartment. There are small spurs involving the lateral compartment. There is spurring of the tibial spines. There is a left knee effusion and soft tissue swelling adjacent to the knee. IMPRESSION: 1: There is no acute fracture dislocation. 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 3: There is a left knee effusion and adjacent soft tissue swelling. Dictated by: Dictated on workstation # [id number]
== END 2022-04-02 01:00 | disposition home or self-care (01) ==
LOC: EDUNIT# 23:06 → ER 23:10
DX: M25.462 Effusion, left knee (principal); F17.210 Nicotine dependence, cigarettes, uncomplicated; X50.1XXA Overexertion from prolonged static or awkward postures, initial encounter
CPT/HCPCS: 73562; 99284

== ENCOUNTER 2023-04-15 10:08 | Emergency (ER) | payer SELFPAY ==
[~2023-04-15] VITALS: Ht 177 cm; Wt 102.0 kg
[~2023-04-15 10:08] MED LIST changes: +METH4TAB PO
--- NOTE | 2023-04-15 10:12 | ED Chest Pain ---
General Stated Complaint: CHEST PAINS | History of Present Illness Date Seen by Provider: Apr 15, 2023 Time Seen by Provider: 10:12 Initial Comments 53-year-old female presents with diffuse left-sided chest pain. She reports that started yesterday afternoon. It gets worse if she takes a deep breath. She denies any nausea, vomiting, diaphoresis or other systemic complaints. She does continue to smoke and has a history of requiring inhalers Allergies and Home Medications Allergies Coded Allergies: NKANo Known Allergies (Verified Allergy, Unknown, 02/17/06) Patient Home Medication List Home Medication List Reviewed: Yes Alprazolam (Xanax) 0.5 Mg Tablet, 0.5 MG PO QID PRN for ANXIETY, (Reported) Entered as Reported by: RICHIE KENNEDY on 04/10/17 0845 Amitriptyline HCl (Amitriptyline HCl) 50 Mg Tablet, 50 MG PO HS, (Reported) Entered as Reported by: BECKY HUFF on 04/09/17 1605 Amoxicillin/Potassium Clav (Augmentin 875-125 Tablet) 1 Each Tablet, 1 EACH PO BID Prescribed by: VIJAYA MANZO on 12/06/202120 Apixaban (Eliquis) 5 Mg Tablet, 10 MG PO BID Prescribed by: WILLIAM NAVAS on 04/10/17 105 Apixaban (Eliquis) 5 Mg Tablet, 5 MG PO BID Prescribed by: WILLIAM NAVAS on 04/10/17 105 Azithromycin (Azithromycin) 250 Mg Tablet, 250 MG PO UD Prescribed by: VIJAYA MANZO on 12/06/202120 Clindamycin HCl (Clindamycin HCl) 300 Mg Capsule, 300 MG PO Q6H Prescribed by: EVERT HER on 05/01/18 172 Fluticasone Propionate (Flovent Hfa 220 mcg) 1 Ea Aero, 2 PUFF IH BID Prescribed by: VIJAYA MANZO on 12/06/202120 Hydrocodone Bit/Acetaminophen (HYDROcodone/APAP 10/325 TABLET) 1 Each Tablet, 1 TAB PO Q6H PRN for PAIN-MODERATE, (Reported) Entered as Reported by: BECKY HUFF on 04/09/17 1605 Hydrocodone/Ibuprofen (Hydrocodone-Ibuprofen 5-200 mg) 1 Each Tablet, 1 EACH PO Q6H Prescribed by: EVERT HER on 05/01/18 1720 Melatonin (Melatonin) 10 Mg Capsule, 10 MG PO HS, (Reported) Entered as Reported by: BECKY HUFF on 04/09/17 1605 Methylprednisolone (Medrol) 4 Mg Tab.ds.pk, 4 MG PO UD Prescribed by: GOSIA SANTOS on 04/02/22 0046 Metoprolol Tartrate (Metoprolol Tartrate) 25 Mg Tablet, 25 MG PO DAILY, (Reported) Entered as Reported by: JOYA MURDOCK on 01/24/15 1223 Pantoprazole Sodium (Protonix) 40 Mg Tablet.dr, 40 MG PO DAILY, (Reported) Entered as Reported by: BECKY HUFF on 04/09/17 1605 Prednisone (Prednisone) 20 Mg Tab, 40 MG PO DAILY Prescribed by: YVETTE WARD on 04/15/23 1128 Ropinirole HCl (Requip) 2 Mg Tablet, 2 MG PO HS, (Reported) Entered as Reported by: RICHIE KENNEDY on 04/10/17 0845 Sumatriptan Succinate (Sumatriptan Succinate) 25 Mg Tablet, 25 MG PO UD PRN for HEADACHE, (Reported) Entered as Reported by: JOYA MURDOCK on 01/24/15 1223 Review of Systems Review of Systems Constitutional: see HPI; No chills EENTM: No Symptoms Reported Respiratory: See HPI Cardiovascular: See HPI Gastrointestinal: No Symptoms Reported Genitourinary: No Symptoms Reported Musculoskeletal: no symptoms reported Skin: no symptoms reported Psychiatric/Neurological: No Symptoms Reported Endocrine: No Symptoms Reported Past Zptlydr-Hjvdoy-Zovpgn Hx Immunizations Up To Date Tetanus Booster (TDap): Unknown First/Initial COVID19 Vaccinat: UNKNOWN DATE Second COVID19 Vaccination Chandu: UNKNOWN DATE Third COVID19 Vaccination Date: FEBRUARY 2021 Seasonal Allergies Seasonal Allergies: No Past Medical History Surgery/Hospitalization HX: HYSTERECTOMY AND BLOOD CLOTS Surgeries: Yes (ceserean section x 2, LEFT KNEE SCOPE, THROAT) Section, Hysterectomy, Orthopedic, Tonsillectomy Respiratory: Yes Pneumonia, Pulmonary Embolism Cardiac: Yes Deep Vein Thrombosis, Hypertension Neurological: Yes Headaches /Migraines Reproductive Disorders: Yes 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 Disorders: Denies 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, 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 Sexually Transmitted Disease: No HIV/AIDS: No Genitourinary: No Gastrointestinal: Yes Gastroesophageal Reflux Musculoskeletal: Yes (LEFT KNEE SCOPE/TORN MENISCUS) Arthritis Endocrine: No HEENT: No Loss of Vision: Denies Hearing Impairment: Denies Cancer: No Psychosocial: Yes Anxiety, Depression Integumentary: No Blood Disorders: No Family Medical History Atrial fibrillation 19 MOTHER, Onset:Unknown Cancer of mouth 19 FATHER, Onset:Unknown Headache disorder 19 MOTHER, Onset:Unknown No Family History of: AIDS Abdominal aortic aneurysm Alek's disease Alcoholism Alzheimer's disease Aphasia Arthritis Asthma Cardiovascular disease Cataracts Colon cancer Completed stroke Congenital disease Congenital heart disease Coronary thrombosis Cystic fibrosis Deafness or hearing loss Dementia Diabetes mellitus Drug abuse Dysphasia Fibrocystic disease of breast Gastroenteritis Glaucoma Hypercholesterolemia Hypertension Infertility Kidney disease Myocardial infarction Neoplasm Not obtainable due to adoption Osteoporosis Parkinson's disease Prostate cancer Psychosocial problem Respiratory disorder Seizure disorder Severe allergy Thyroid disease Tuberculosis Visual disorder Physical Exam Vital Signs Vital Signs - First Documented 04/15/23 04/15/23 10:13 10:36 Temp 37.3 Pulse 79 Resp 18 B/P (MAP) 151/101 (118) Pulse Ox 99 O2 Delivery Room Air O2 Flow Rate 0 Capillary Refill : Height, Weight, BMI Height: 5'10.00" Weight: 220lbs. 0.0oz. 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 Norm as Tested Progress/Results/Core Measures Results/Orders Lab Results Laboratory Tests Test 04/15/23 10:15 Range/Units White Blood Count 6.3 4.3-11.0 10^3/uL Red Blood Count 5.06 3.80-5.11 10^6/uL Hemoglobin 15.5 11.5-16.0 g/dL Hematocrit 46 35-52 % Mean Corpuscular Volume 90 80-99 fL Mean Corpuscular Hemoglobin 31 25-34 pg Mean Corpuscular Hemoglobin Concent 34 32-36 g/dL Red Cell Distribution Width 13.6 10.0-14.5 % Platelet Count 277 130-400 10^3/uL Mean Platelet Volume 10.4 9.0-12.2 fL Immature Granulocyte % (Auto) 0 % Neutrophils (%) (Auto) 54 42-75 % Lymphocytes (%) (Auto) 33 12-44 % Monocytes (%) (Auto) 10 0-12 % Eosinophils (%) (Auto) 3 0-10 % Basophils (%) (Auto) 1 0-10 % Neutrophils # (Auto) 3.4 1.8-7.8 10^3/uL Lymphocytes # (Auto) 2.1 1.0-4.0 10^3/uL Monocytes # (Auto) 0.6 0.0-1.0 10^3/uL Eosinophils # (Auto) 0.2 0.0-0.3 10^3/uL Basophils # (Auto) 0.1 0.0-0.1 10^3/uL Immature Granulocyte # (Auto) 0.0 0.0-0.1 10^3/uL Sodium Level 139 135-145 MMOL/L Potassium Level 3.4 L 3.6-5.0 MMOL/L Chloride Level 104 98-107 MMOL/L Carbon Dioxide Level 25 21-32 MMOL/L Anion Gap 10 5-14 MMOL/L Blood Urea Nitrogen 10 7-18 MG/DL Creatinine 0.81 0.60-1.30 MG/DL Estimat Glomerular Filtration Rate 87 BUN/Creatinine Ratio 12 Glucose Level 112 H 70-105 MG/DL Calcium Level 9.4 8.5-10.1 MG/DL Corrected Calcium 9.2 8.5-10.1 MG/DL Total Bilirubin 0.8 0.1-1.0 MG/DL Aspartate Amino Transf (AST/SGOT) 15 5-34 U/L Alanine Aminotransferase (ALT/SGPT) 17 0-55 U/L Alkaline Phosphatase 84 40-136 U/L Troponin I < 0.028 <0.028 NG/ML C-Reactive Protein High Sensitivity 0.55 H 0.00-0.50 MG/DL Total Protein 7.3 6.4-8.2 GM/DL Albumin 4.2 3.2-4.5 GM/DL My Orders Orders - WARD,YVETTE L DO Chest Pa/Lat (2 View) (04/15/23 10:19) Cbc With Automated Diff (04/15/23 10:19) Comprehensive Metabolic Panel (04/15/23 10:19) Hs C Reactive Protein (04/15/23 10:19) Troponin I [place] (04/15/23 10:19) Ekg Tracing (04/15/23 10:19) Monitor-Rhythm Ecg Trace Only (04/15/23 10:19) Albuterol/Ipra Inhalation Soln (Duoneb I (04/15/23 10:30) Svn Small Volume Nebulizer (04/15/23 10:19) Ketorolac Injection (Toradol Injection) (04/15/23 10:19) Medications Given in ED Current Medications Medications Dose Ordered Sig/Tiana Route Start Time Stop Time Status Last Admin Dose Admin Albuterol/ Ipratropium 3 ml ONCE ONCE INH 04/15/23 10:30 04/15/23 10:31 DC 04/15/23 10:36 3 ML Vital Signs/I&O 04/15/23 04/15/23 04/15/23 10:13 10:36 11:35 Temp 37.3 Pulse 79 58 Resp 18 18 B/P (MAP) 151/101 (118) 132/87 Pulse Ox 99 97 97 O2 Delivery Room Air Room Air O2 Flow Rate 0 0 0 Progress Progress Note : Progress Note Patient's diagnostic studies were ordered reviewed and interpreted by me. Patient has no concerning findings on her labs. Patient's EKG showed a normal rhythm, ventricular rate [address] changes or elevation. Patient's troponin was negative. Patient's chest x-rays were reviewed with initial interpretation negative by me with final interpretation per radiology report. Patient's symptoms are much more consistent with pleuritic chest pain likely viral with a slight elevation of her CRP. Due to patient's underlying respiratory disorder I will give her a couple days of a steroid to help with the wheezing. She should use anti-inflammatories and Tylenol as needed. She is stable and discharged Diagnostic Imaging Diagonstic Imaging: Xray Plain Films/CT/US/NM/MRI: chest Comments Date of Exam:04/15/23 CHEST PA/LAT (2 VIEW) HISTORY: Chest pain. TECHNIQUE: 2 views of the chest. COMPARISON: CT from 12/06/2020 FINDINGS: Lung volumes are normal. No consolidation is seen. There is no pleural effusion or pneumothorax. The cardiac silhouette is normal in size. IMPRESSION: 1. No acute pulmonary abnormality is seen. Reviewed: Reviewed by Me, Reviewed/Discussed Departure Impression Primary Impression: COPD (chronic obstructive pulmonary disease) Qualified Codes: J44.9 - Chronic obstructive pulmonary disease, unspecified Additional Impression: Pleurisy Disposition: 01 HOME, SELF-CARE Condition: Stable Departure-Patient Inst. Referrals: [facility] (PCP/Family) Primary Care Physician Patient Instructions: Pleuritic Chest Pain ED, COPD Exacerbation, Adult ED Add. Discharge Instructions: Follow-up with your primary care provider towards in the week or beginning next week, sooner if symptoms worsen. Return to the ER as needed Scripts Prednisone (Prednisone) 20 Mg Tab 40 MG PO DAILY, #6 TAB 0 Refills Prov: YVETTE WARD DO 04/15/23 YVETTE WARD DO Apr 15, 2023 10:12
[2023-04-15] MEDS ORDERED: KETOROLAC 30 MG/ML VIAL IVP STA (10:19)
[2023-04-15] MEDS ORDERED: RT-ALBUTEROL/IPRATROPIUM 3 ML (DUONEB) VIAL INH ONE (10:30)
[2023-04-15 10:31] LABS: BASOPHILS # (AUTO) 0.1 10^3/uL (0.0-0.1); BASOPHILS % (AUTO) 1 % (0-10); EOSINOPHILS # (AUTO) 0.2 10^3/uL (0.0-0.3); EOSINOPHILS % (AUTO) 3 % (0-10); HEMATOCRIT 46 % (35-52); HEMOGLOBIN 15.5 g/dL (11.5-16.0); LYMPHOCYTES # (AUTO) 2.1 10^3/uL (1.0-4.0); LYMPHOCYTES % (AUTO) 33 % (12-44); MEAN CORPUSCULAR HEMOGLOBIN 31 pg (25-34); MEAN CORPUSCULAR HGB CONC 34 g/dL (32-36); MEAN CORPUSCULAR VOLUME 90 fL (80-99); MEAN PLATELET VOLUME 10.4 fL (9.0-12.2); MONOCYTES # (AUTO) 0.6 10^3/uL (0.0-1.0); MONOCYTES % (AUTO) 10 % (0-12); NEUTROPHILS # (AUTO) 3.4 10^3/uL (1.8-7.8); NEUTROPHILS % (AUTO) 54 % (42-75); PLATELET COUNT 277 10^3/uL (130-400); WHITE BLOOD COUNT 6.3 10^3/uL (4.3-11.0)
[2023-04-15 10:35] LABS: ALBUMIN 4.2 GM/DL (3.2-4.5); CHLORIDE 104 MMOL/L (98-107); POTASSIUM 3.4 MMOL/L (3.6-5.0); SODIUM 139 MMOL/L (135-145)
[2023-04-15 10:36] LABS: CALCIUM 9.4 MG/DL (8.5-10.1)
[2023-04-15 10:37] LABS: GLUCOSE 112 MG/DL (70-105); TOTAL PROTEIN 7.3 GM/DL (6.4-8.2)
[2023-04-15 10:38] LABS: CARBON DIOXIDE 25 MMOL/L (21-32)
[2023-04-15 10:39] LABS: BILIRUBIN,TOTAL 0.8 MG/DL (0.1-1.0)
[2023-04-15 10:41] LABS: ALKALINE PHOSPHATASE 84 U/L (40-136); CREATININE SERUM 0.81 MG/DL (0.60-1.30); GFR ESTIMATED 87
[2023-04-15 10:42] LABS: BUN/CREATININE RATIO 12
[2023-04-15 10:44] LABS: ALANINE AMINOTRANSFERASE 17 U/L (0-55)
--- NOTE | 2023-04-15 10:52 | Diagnostic Imaging Report ---
HISTORY: Chest pain. TECHNIQUE: 2 views of the chest. COMPARISON: CT from 12/06/2020 FINDINGS: Lung volumes are normal. No consolidation is seen. There is no pleural effusion or pneumothorax. The cardiac silhouette is normal in size. IMPRESSION: 1. No acute pulmonary abnormality is seen. Dictated by: Dictated on workstation # [id number]
[2023-04-15] MEDS ORDERED: PRD20T PO (11:28)
[2023-04-15 11:35] VITALS: BP 132/87
== END 2023-04-15 11:35 | disposition home or self-care (01) ==
LOC: EDUNIT# 10:08 → ER 10:10
DX: J44.9 Chronic obstructive pulmonary disease, unspecified (principal); R09.1 Pleurisy; F17.200 Nicotine dependence, unspecified, uncomplicated
CPT/HCPCS: 36415; 71046; 80053; 84484; 85025; 86141; 93005; 93041